=== PATIENT | female | born 1955 | race Caucasian/White ===

== ENCOUNTER 2018-08-17 19:22 | Emergency (ER) | payer OTHER, MEDICARE, BC ==
[~2018-08-17] VITALS: Ht 160 cm; Wt 84.0 kg
[~2018-08-17 19:22] MED LIST: CARB200C4 PO; CLON-527 PO; EST1T PO; HYDR-3965 PO; LAMO150T2 PO; LEVO50TA67 PO; LISI40TA4 PO; TIZA4TAB11 PO; TRAZ-91 PO
[2018-08-17 19:25] VITALS: BP 129/75
[2018-08-17 21:26] LABS: BASOPHILS # (AUTO) 0.1 X10'3 (0-0.2); BASOPHILS % (AUTO) 1.1 % (0-1); EOSINOPHILS # (AUTO) 0.4 X10'3 (0-0.9); HEMATOCRIT 29.4 % (35.0-45.0); LYMPHOCYTES # (AUTO) 1.5 X10'3 (1.1-4.8); MEAN CORPUSCULAR HEMOGLOBIN 23.3 PG (27.0-31.0); MEAN CORPUSCULAR HGB CONC 30.7 g/dL (33.0-36.5); MEAN CORPUSCULAR VOLUME 75.7 FL (78-98); MEAN PLATELET VOLUME 6.7 FL (7.4-10.4); MONOCYTES # (AUTO) 0.9 X10'3 (0-0.9); NEUTROPHILS # (AUTO) 5.1 X10'3 (1.8-7.7); NEUTROPHILS % (AUTO) 63.9 % (42-75); PLATELET COUNT 425 X10'3 (140-440); RED BLOOD COUNT 3.88 X10'6 (4.20-5.60); RED CELL DISTRIBUTION WIDTH 22.5 % (11.5-14.5)
[2018-08-17 21:37] LABS: ALANINE AMINOTRANSFERASE 19 U/L (12-78); ALBUMIN 3.1 G/DL (3.4-5.0); ALBUMIN/GLOBULIN RATIO 0.9 (1.1-1.5); ALKALINE PHOSPHATASE 208 IU/L (46-116); ANION GAP 5 (8-16); ASPARTATE AMINO TRANSFERASE 22 U/L (10-37); BILIRUBIN,TOTAL 0.2 MG/DL (0.1-1.0); BLOOD UREA NITROGEN 18 MG/DL (7-18); BUN/CREATININE RATIO 11.9 (6.6-38.0); CALCIUM 7.7 MG/DL (8.5-10.1); CHLORIDE 105 MMOL/L (99-107); CREATININE 1.51 MG/DL (0.40-0.90); GLUCOSE 91 MG/DL (70-104); POTASSIUM 5.5 MMOL/L (3.5-5.1); SODIUM 135 MMOL/L (135-145); TOTAL CARBON DIOXIDE 25.4 MMOL/L (24-32); TOTAL PROTEIN 6.4 G/DL (6.4-8.2); eGFR 35 ML/MIN
[2018-08-17] MEDS ORDERED: acetaminophen 325mg tablet PO ONE (21:50)
[2018-08-17 22:14] LABS: ANISOCYTOSIS 3+; MICROCYTOSIS 1+; PLATELET ESTIMATE NORMAL
[2018-08-17 22:15] LABS: HYPOCHROMASIA 2+; SPHEROCYTES 1+
[2018-08-17 22:16] LABS: POIKILOCYTOSIS FEW
== END 2018-08-17 22:19 | disposition home or self-care (01) ==
LOC: ER 19:22
DX: M77.31 Calcaneal spur, right foot (principal); M79.671 Pain in right foot; I10 Essential (primary) hypertension; G89.29 Other chronic pain; F31.9 Bipolar disorder, unspecified; R20.0 Anesthesia of skin
CPT/HCPCS: 36415; 73610; 80053; 84550; 85025; 85651; 99284

== ENCOUNTER 2019-10-18 11:59 | Inpatient (IN) | payer BC, MEDICARE, OTHER ==
[2019-10-18] VITALS (15 sets, daily range): BP systolic 132–217; BP diastolic 70–111
[~2019-10-18] VITALS: Ht 160 cm; Wt 105.0 kg
[~2019-10-18 11:59] MED LIST changes: -CARB200C4 PO; +CARB200C7 PO
[2019-10-18 12:33] LABS: BASOPHILS # (AUTO) 0.1 X10'3 (0-0.2); BASOPHILS % (AUTO) 1.7 % (0-1); EOSINOPHILS # (AUTO) 0.7 X10'3 (0-0.9); EOSINOPHILS % (AUTO) 10.2 % (0-6); HEMATOCRIT 38.7 % (35.0-45.0); HEMOGLOBIN 12.1 g/dl (12.0-16.0); LYMPHOCYTES # (AUTO) 1.8 X10'3 (1.1-4.8); MEAN CORPUSCULAR HEMOGLOBIN 25.9 PG (27.0-31.0); MEAN CORPUSCULAR HGB CONC 31.2 g/dL (33.0-36.5); MEAN CORPUSCULAR VOLUME 82.9 FL (78-98); MEAN PLATELET VOLUME 6.8 FL (7.4-10.4); MONOCYTES # (AUTO) 0.7 X10'3 (0-0.9); NEUTROPHILS % (AUTO) 54.1 % (42-75); PLATELET COUNT 546 X10'3 (140-440); RED BLOOD COUNT 4.67 X10'6 (4.20-5.60); RED CELL DISTRIBUTION WIDTH 17.2 % (11.5-14.5); WHITE BLOOD COUNT 7.4 X10'3 (4.5-11.0)
[2019-10-18 12:47] LABS: ALANINE AMINOTRANSFERASE 21 U/L (12-78); ALBUMIN 3.5 G/DL (3.4-5.0); ALBUMIN/GLOBULIN RATIO 0.9 (1.1-1.5); ALKALINE PHOSPHATASE 117 IU/L (46-116); ANION GAP 9 (8-16); ASPARTATE AMINO TRANSFERASE 26 U/L (10-37); BILIRUBIN,TOTAL 0.3 MG/DL (0.1-1.0); BLOOD UREA NITROGEN 13 MG/DL (7-18); BUN/CREATININE RATIO 10.8 (6.6-38.0); CALCIUM 8.7 MG/DL (8.5-10.1); CHLORIDE 102 MMOL/L (99-107); GLUCOSE 91 MG/DL (70-104); LIPASE 144 U/L (73-393); POTASSIUM 4.4 MMOL/L (3.5-5.1); SODIUM 135 MMOL/L (135-145); TOTAL CARBON DIOXIDE 24.4 MMOL/L (24-32); TOTAL PROTEIN 7.2 G/DL (6.4-8.2); eGFR 45 ML/MIN
[2019-10-18] MEDS ORDERED: morphine 4 MG/ML inj SYRINge IV PRN ×2 (13:25→15:50)
[2019-10-18] MEDS ORDERED: fentaNYL/PF 50MCG/1 ML 2ML syringe IV ONE (14:10)
[2019-10-18] MEDS ORDERED: LEVO50TA8 PO (14:11)
[2019-10-18] MEDS ORDERED: DULO60CA65 PO (14:11)
[2019-10-18] MEDS ORDERED: GABA600T13 PO (14:11)
[2019-10-18] MEDS ORDERED: ESTR0.5T28 PO (14:11)
[2019-10-18] MEDS ORDERED: LISI10TA4 PO (14:11)
[2019-10-18] MEDS ORDERED: BUPR300T86 PO (14:11)
[2019-10-18] MEDS ORDERED: CLON-369 PO (14:11)
[2019-10-18] MEDS ORDERED: CARB-52 PO (14:11)
[2019-10-18] MEDS ORDERED: TIZA4TAB5 PO (14:11)
[2019-10-18] MEDS ORDERED: HYDR-3972 PO (14:11)
[2019-10-18] MEDS ORDERED: MELO-102 PO (14:11)
[2019-10-18] MEDS ORDERED: TRAZ150T78 PO (14:11)
--- NOTE | 2019-10-18 14:34 | NUR ---
REPORT GIVEN TO OR JEAN-PIERRE RAMOS.
[2019-10-18] MEDS ORDERED: acetaminophen 325mg tablet PO PRN (15:00)
[2019-10-18] MEDS ORDERED: magnesium 2GM in 50ml NS 50 ML IV PRN (15:00)
[2019-10-18] MEDS ORDERED: ondansetron/PF 4mg/2ml inj IV PRN ×2 (15:00→15:50)
[2019-10-18] MEDS ORDERED: magnesium 4gm in 100ml NS 100 ML IV PRN (15:00)
[2019-10-18] MEDS ORDERED: potassium CL 10mEq/100ml bag 100 ML IV PRN ×2 (15:00)
[2019-10-18] MEDS ORDERED: magnesium Cl slow-release 64mg tablet PO PRN (15:00)
[2019-10-18] MEDS ORDERED: potassium Cl 20 mEq SR tablet PO PRN ×2 (15:00)
[2019-10-18] MEDS ORDERED: BUPIVAcaine/PF 2.5 mg/ml (0.25%) 30ml vial ONE (15:40)
[2019-10-18] MEDS ORDERED: ringers solution, lacted 1,000 ML IV SCH (15:46)
[2019-10-18] MEDS ORDERED: meperidine/PF 25mg/ml syringe IV PRN ×2 (15:50)
[2019-10-18] MEDS ORDERED: morphine 2 MG/ML inj. syringe IV PRN (15:50)
[2019-10-18] MEDS ORDERED: proCHLORperazine 10 MG/2 ml inj IV PRN (15:50)
[2019-10-18] MEDS ORDERED: rocuronium 10mg/ml inj IV ONE ×2 (15:52→15:53)
[2019-10-18] MEDS ORDERED: sevoflurane 250ml liquid IH ONE (15:52)
[2019-10-18] MEDS ORDERED: fentaNYL/PF 50MCG/1 ML 2ML syringe ONE (15:52)
[2019-10-18] MEDS ORDERED: propofol inj 20 ML IV ONE (15:53)
[2019-10-18] MEDS ORDERED: midazolam 2 mg/2 ml injection ONE (15:53)
[2019-10-18] MEDS ORDERED: ceFOXitin 2GM-NS 50mL ADDVANT. 50 ML IV ONE (15:53)
[2019-10-18] MEDS ORDERED: glycopyrrolate 0.2mg/ml inj ONE (17:25)
[2019-10-18] MEDS ORDERED: neostigmine methylsulfate 1 MG/ML 10ml vial ONE (17:25)
--- NOTE | 2019-10-18 17:29 | NUR ---
RECEIVED FROM OR VIA BED ACCOMPANIED BY ANESTHESIOLOGIST DR PATEL , REPORT GIVEN. PT DROWSY BUT AROUSES EASILY WITH COMPLAINT OF PAIN LEVEL OF 7 AT THIS TIME. 20 GAUGE PIV R FA PATENT AND RUNNING LR AT 100 ML/HR. SKIN PINK AND WARM, GOOD CAP REFILL, PPULSES PRESENT, ABD SOFT, VSS
[2019-10-18] MEDS: meperidine/PF 25mg/ml syringe IV PRN ×4 (17:54→18:36)
--- NOTE | 2019-10-18 18:51 | NUR ---
TRANSFERRED VIA BED , REPORT GIVEN. PT AWAKE AND ALERT WITH COMPLAINT OF PAIN LEVEL OF 5 AT THIS TIME. 20 GAUGE PIV R FA PATENT AND RUNNING LR AT 100 ML/HR. SKIN PINK AND WARM, GOOD CAP REFILL, PPULSES PRESENT, ABD SOFT, VSS, RESTING COMFORTABLY
[2019-10-18] MEDS ORDERED: clonazePAM 0.5mg tablet PO PRN (19:45)
[2019-10-18] MEDS ORDERED: tizanidine 4mg tablet PO PRN (19:45)
--- NOTE | 2019-10-18 19:55 | NUR ---
Patient in room RAD[facility] 345. I have received report from Payton RAMOS and had the opportunity to ask questions and assume patient care.
[2019-10-18] MEDS: K and/or MAG REPLACEMENT MC SCH (20:00)
[2019-10-18] MEDS: morphine 2 MG/ML inj. syringe IV PRN (20:14)
[2019-10-18] MEDS: normal saline 1000ml 1,000 ML IV SCH (20:23)
[2019-10-18] MEDS ORDERED: buPROPion SR 150mg tablet PO SCH (20:30)
[2019-10-18] MEDS: gabapentin 400mg capsule PO SCH (22:00)
[2019-10-18] MEDS: carBAMazepine Ext. Release 200 MG TAB.ER.12H PO SCH (22:00)
[2019-10-18] MEDS: HYDROcodone/acetaminophen 10/325mg tab PO PRN (23:42)
[2019-10-19] VITALS (11 sets, daily range): BP systolic 162–211; BP diastolic 75–98
[2019-10-19] MEDS: normal saline 1000ml 1,000 ML IV SCH ×3 (00:58→18:36)
[2019-10-19] MEDS: traZODone 150mg tablet PO PRN ×2 (01:14→21:58)
[2019-10-19] MEDS ORDERED: hydrALAZINE 20mg/ml inj. IV PRN (01:25)
[2019-10-19] MEDS: morphine 2 MG/ML inj. syringe IV PRN ×3 (02:17→20:06)
--- NOTE | 2019-10-19 02:41 | NUR ---
pt sbp was running 200. pt was given pain medication because pt was painful. sbp was still 200. MD was called and gave a order for PRN medication for SBP of >160. pt SBP went down to 151 before PRN was given
[2019-10-19] MEDS: lisinopril 10 MG tablet PO SCH (06:11)
[2019-10-19 06:18] LABS: BASOPHILS # (AUTO) 0.1 X10'3 (0-0.2); BASOPHILS % (AUTO) 1.3 % (0-1); EOSINOPHILS # (AUTO) 0.6 X10'3 (0-0.9); EOSINOPHILS % (AUTO) 6.9 % (0-6); HEMATOCRIT 35.4 % (35.0-45.0); HEMOGLOBIN 11.4 g/dl (12.0-16.0); LYMPHOCYTES # (AUTO) 1.7 X10'3 (1.1-4.8); LYMPHOCYTES % (AUTO) 20.7 % (21-51); MEAN CORPUSCULAR HEMOGLOBIN 26.8 PG (27.0-31.0); MEAN CORPUSCULAR HGB CONC 32.2 g/dL (33.0-36.5); MEAN CORPUSCULAR VOLUME 83.2 FL (78-98); MEAN PLATELET VOLUME 7.3 FL (7.4-10.4); MONOCYTES # (AUTO) 0.8 X10'3 (0-0.9); MONOCYTES % (AUTO) 9.4 % (2-12); NEUTROPHILS # (AUTO) 5.1 X10'3 (1.8-7.7); NEUTROPHILS % (AUTO) 61.7 % (42-75); PLATELET COUNT 453 X10'3 (140-440); RED BLOOD COUNT 4.25 X10'6 (4.20-5.60); RED CELL DISTRIBUTION WIDTH 17.2 % (11.5-14.5); WHITE BLOOD COUNT 8.2 X10'3 (4.5-11.0)
[2019-10-19 06:34] LABS: ALBUMIN 3.3 G/DL (3.4-5.0); ANION GAP 9 (8-16); BLOOD UREA NITROGEN 10 MG/DL (7-18); BUN/CREATININE RATIO 10.5 (6.6-38.0); CALCIUM 8.5 MG/DL (8.5-10.1); CHLORIDE 104 MMOL/L (99-107); CREATININE 0.95 MG/DL (0.40-0.90); GLUCOSE 88 MG/DL (70-104); MAGNESIUM 1.6 MG/DL (1.5-2.4); POTASSIUM 4.4 MMOL/L (3.5-5.1); SODIUM 137 MMOL/L (135-145); TOTAL CARBON DIOXIDE 23.6 MMOL/L (24-32); eGFR 59 ML/MIN
--- NOTE | 2019-10-19 06:47 | NUR ---
Patient in room RADHA 349. I have received report from RICHARD Lenz and had the opportunity to ask questions and assume patient care.
--- NOTE | 2019-10-19 06:50 | NUR ---
Problems reprioritized. Patient report given, questions answered & plan of care reviewed with Faith RAMOS.
[2019-10-19] MEDS: gabapentin 400mg capsule PO SCH (07:49)
[2019-10-19] MEDS: carBAMazepine Ext. Release 200 MG TAB.ER.12H PO SCH ×3 (07:50→20:04)
[2019-10-19] MEDS: duloxetine 30mg CAPSULE.DR PO SCH (07:50)
[2019-10-19] MEDS: levoTHYROXINE 25mcg tablet PO SCH (07:50)
[2019-10-19] MEDS: HYDROcodone/acetaminophen 10/325mg tab PO PRN (07:51)
[2019-10-19] MEDS: buPROPion SR 150mg tablet PO SCH ×2 (07:51→20:03)
[2019-10-19] MEDS: K and/or MAG REPLACEMENT MC SCH ×2 (08:00→19:44)
[2019-10-19] MEDS ORDERED: lisinopril 10 MG tablet PO SCH ×2 (08:00)
[2019-10-19] MEDS ORDERED: pneumococcal 23-VAL P-sac vacc 25 mcg/0.5ml vial IMVAC ONE (10:00)
[2019-10-19] MEDS ORDERED: sincalide inj 2.1 MCG in normal saline 50ml IV soln 50 ML IV ONE (11:00)
[2019-10-19] MEDS ORDERED: SINCALIDE IV PRN (15:30)
[2019-10-19] MEDS ORDERED: NORMAL SALINE IV PRN (15:30)
[2019-10-19] MEDS ORDERED: morphine 4 MG/ML inj SYRINge IM ONE (15:35)
[2019-10-19] MEDS ORDERED: morphine 4 MG/ML inj SYRINge ONE (15:36)
--- NOTE | 2019-10-19 17:59 | NUR ---
Problems reprioritized. Patient report given, questions answered & plan of care reviewed with RICHARD Lenz.
--- NOTE | 2019-10-19 18:38 | NUR ---
Patient in room RAD[facility] 345. I have received report from Faith RAMOS and had the opportunity to ask questions and assume patient care.
[2019-10-19] MEDS: gabapentin 300mg capsule PO SCH (20:02)
[2019-10-20] VITALS: BP 180/90
[2019-10-20] MEDS: morphine 2 MG/ML inj. syringe IV PRN ×6 (00:07→20:51)
[2019-10-20 01:00] VITALS: BP 152/83
[2019-10-20] MEDS: normal saline 1000ml 1,000 ML IV SCH ×2 (02:57→17:26)
[2019-10-20 06:01] LABS: ANION GAP 8 (8-16); BLOOD UREA NITROGEN 5 MG/DL (7-18); BUN/CREATININE RATIO 6.2 (6.6-38.0); CALCIUM 8.2 MG/DL (8.5-10.1); CHLORIDE 104 MMOL/L (99-107); CREATININE 0.81 MG/DL (0.40-0.90); GLUCOSE 93 MG/DL (70-104); MAGNESIUM 1.4 MG/DL (1.5-2.4); POTASSIUM 3.8 MMOL/L (3.5-5.1); SODIUM 136 MMOL/L (135-145); TOTAL CARBON DIOXIDE 24.2 MMOL/L (24-32); eGFR 71 ML/MIN
[2019-10-20 06:07] LABS: BASOPHILS # (AUTO) 0.1 X10'3 (0-0.2); BASOPHILS % (AUTO) 0.9 % (0-1); EOSINOPHILS # (AUTO) 0.6 X10'3 (0-0.9); EOSINOPHILS % (AUTO) 8.5 % (0-6); HEMATOCRIT 31.9 % (35.0-45.0); HEMOGLOBIN 10.3 g/dl (12.0-16.0); LYMPHOCYTES # (AUTO) 1.7 X10'3 (1.1-4.8); LYMPHOCYTES % (AUTO) 22.4 % (21-51); MEAN CORPUSCULAR HEMOGLOBIN 26.7 PG (27.0-31.0); MEAN CORPUSCULAR HGB CONC 32.2 g/dL (33.0-36.5); MEAN CORPUSCULAR VOLUME 82.8 FL (78-98); MEAN PLATELET VOLUME 7.2 FL (7.4-10.4); MONOCYTES # (AUTO) 1.2 X10'3 (0-0.9); MONOCYTES % (AUTO) 15.3 % (2-12); NEUTROPHILS % (AUTO) 52.9 % (42-75); PLATELET COUNT 437 X10'3 (140-440); RED BLOOD COUNT 3.85 X10'6 (4.20-5.60); RED CELL DISTRIBUTION WIDTH 17.5 % (11.5-14.5); WHITE BLOOD COUNT 7.6 X10'3 (4.5-11.0)
--- NOTE | 2019-10-20 06:24 | NUR ---
Problems reprioritized. Patient report given, questions answered & plan of care reviewed with Faith RAMOS.
--- NOTE | 2019-10-20 06:31 | NUR ---
Patient in room RADHA 349. I have received report from RICHARD Lenz and had the opportunity to ask questions and assume patient care.
[2019-10-20 07:50] VITALS: BP 175/91
[2019-10-20] MEDS: levoTHYROXINE 25mcg tablet PO SCH (08:10)
[2019-10-20] MEDS: gabapentin 300mg capsule PO SCH ×2 (08:10→20:49)
[2019-10-20] MEDS: duloxetine 30mg CAPSULE.DR PO SCH (08:11)
[2019-10-20] MEDS: carBAMazepine Ext. Release 200 MG TAB.ER.12H PO SCH ×3 (08:12→20:50)
[2019-10-20] MEDS: lisinopril 10 MG tablet PO SCH (08:12)
[2019-10-20] MEDS: buPROPion SR 150mg tablet PO SCH ×2 (08:13→20:49)
[2019-10-20] MEDS: K and/or MAG REPLACEMENT MC SCH ×2 (08:35→20:00)
[2019-10-20 11:00] VITALS: BP 150/97
[2019-10-20 18:00] VITALS: BP_SYST 142; BP_SYST 155; BP_DIAS 70; BP_DIAS 90
--- NOTE | 2019-10-20 18:35 | NUR ---
Problems reprioritized. Patient report given, questions answered & plan of care reviewed with RICHARD Lenz.
--- NOTE | 2019-10-20 19:38 | NUR ---
Patient in room RAD[facility] 345. I have received report from Faith RAMOS and had the opportunity to ask questions and assume patient care.
[2019-10-20] MEDS: traZODone 150mg tablet PO PRN (22:35)
[2019-10-21] VITALS (14 sets, daily range): BP systolic 115–204; BP diastolic 51–122
[2019-10-21] MEDS: morphine 2 MG/ML inj. syringe IV PRN ×3 (01:48→19:29)
[2019-10-21] MEDS: normal saline 1000ml 1,000 ML IV SCH ×2 (03:57→15:30)
[2019-10-21 05:19] LABS: BASOPHILS # (AUTO) 0.1 X10'3 (0-0.2); BASOPHILS % (AUTO) 1.1 % (0-1); EOSINOPHILS # (AUTO) 0.7 X10'3 (0-0.9); EOSINOPHILS % (AUTO) 9.4 % (0-6); HEMATOCRIT 33.3 % (35.0-45.0); HEMOGLOBIN 10.5 g/dl (12.0-16.0); LYMPHOCYTES # (AUTO) 1.7 X10'3 (1.1-4.8); LYMPHOCYTES % (AUTO) 23.1 % (21-51); MEAN CORPUSCULAR HEMOGLOBIN 26.1 PG (27.0-31.0); MEAN CORPUSCULAR HGB CONC 31.7 g/dL (33.0-36.5); MEAN CORPUSCULAR VOLUME 82.5 FL (78-98); MEAN PLATELET VOLUME 7.2 FL (7.4-10.4); MONOCYTES # (AUTO) 1.1 X10'3 (0-0.9); MONOCYTES % (AUTO) 15.3 % (2-12); NEUTROPHILS # (AUTO) 3.7 X10'3 (1.8-7.7); NEUTROPHILS % (AUTO) 51.1 % (42-75); PLATELET COUNT 419 X10'3 (140-440); RED BLOOD COUNT 4.03 X10'6 (4.20-5.60); RED CELL DISTRIBUTION WIDTH 17.7 % (11.5-14.5); WHITE BLOOD COUNT 7.3 X10'3 (4.5-11.0)
[2019-10-21 05:25] LABS: ANION GAP 8 (8-16); BLOOD UREA NITROGEN 3 MG/DL (7-18); BUN/CREATININE RATIO 3.9 (6.6-38.0); CALCIUM 8.3 MG/DL (8.5-10.1); CHLORIDE 103 MMOL/L (99-107); CREATININE 0.77 MG/DL (0.40-0.90); GLUCOSE 97 MG/DL (70-104); MAGNESIUM 1.9 MG/DL (1.5-2.4); POTASSIUM 3.7 MMOL/L (3.5-5.1); SODIUM 136 MMOL/L (135-145); TOTAL CARBON DIOXIDE 25.3 MMOL/L (24-32); eGFR 76 ML/MIN
--- NOTE | 2019-10-21 06:39 | NUR ---
Problems reprioritized. Patient report given, questions answered & plan of care reviewed with Dorothy RAMOS.
--- NOTE | 2019-10-21 06:44 | NUR ---
Patient in room RADHA 349. I have received report from Yoanna Carlos RN and had the opportunity to ask questions and assume patient care.
[2019-10-21] MEDS: levoTHYROXINE 25mcg tablet PO SCH (07:36)
[2019-10-21] MEDS: carBAMazepine Ext. Release 200 MG TAB.ER.12H PO SCH ×3 (07:37→20:49)
[2019-10-21] MEDS: duloxetine 30mg CAPSULE.DR PO SCH (07:38)
[2019-10-21] MEDS: buPROPion SR 150mg tablet PO SCH ×2 (07:39→19:28)
[2019-10-21] MEDS: lisinopril 10 MG tablet PO SCH (07:39)
[2019-10-21] MEDS: gabapentin 300mg capsule PO SCH ×2 (07:39→19:28)
[2019-10-21] MEDS: HYDROcodone/acetaminophen 10/325mg tab PO PRN (07:41)
[2019-10-21] MEDS: K and/or MAG REPLACEMENT MC SCH ×2 (08:00→20:00)
--- NOTE | 2019-10-21 10:00 | NUR ---
Dr Crandall aware of pt's elevated BPs 180's/90's. Orders received. Will continue to monitor.
[2019-10-21] MEDS ORDERED: methylnaltrexone br 12mg/0.6ml inj***SubQ only SQ SCH (10:45)
[2019-10-21] MEDS ORDERED: LIDOcaine Viscous 15ml cup ONE (11:50)
[2019-10-21] MEDS ORDERED: MIDAZolam 5mg/5ml vial ONE (11:50)
[2019-10-21] MEDS ORDERED: fentaNYL/PF 50MCG/1 ML 2ML syringe ONE (11:50)
[2019-10-21] MEDS: bisacodyl 10mg suppository rectal RC SCH (15:01)
[2019-10-21] MEDS: oxyCODONE/APAP 10/325mg tablet PO PRN ×2 (15:40→22:52)
--- NOTE | 2019-10-21 18:24 | NUR ---
Problems reprioritized. Patient report given, questions answered & plan of care reviewed with Mary RAMOS.
--- NOTE | 2019-10-21 18:30 | NUR ---
Patient in room RADHA 349. I have received report from FARZANA and had the opportunity to ask questions and assume patient care.
[2019-10-21] MEDS: diatr meglu/diatrizoate 30ml oral sol.-(3 dose) bottle PO SCH (20:53)
[2019-10-21] MEDS: traZODone 150mg tablet PO PRN (22:53)
[2019-10-22] MEDS: normal saline 1000ml 1,000 ML IV SCH ×4 (01:14→21:08)
[2019-10-22] MEDS: oxyCODONE/APAP 10/325mg tablet PO PRN ×4 (03:34→22:08)
[2019-10-22 05:21] LABS: BASOPHILS # (AUTO) 0.1 X10'3 (0-0.2); BASOPHILS % (AUTO) 1.3 % (0-1); EOSINOPHILS # (AUTO) 0.7 X10'3 (0-0.9); EOSINOPHILS % (AUTO) 11.7 % (0-6); HEMATOCRIT 32.4 % (35.0-45.0); HEMOGLOBIN 10.3 g/dl (12.0-16.0); LYMPHOCYTES # (AUTO) 1.6 X10'3 (1.1-4.8); LYMPHOCYTES % (AUTO) 25.1 % (21-51); MEAN CORPUSCULAR HEMOGLOBIN 26.4 PG (27.0-31.0); MEAN CORPUSCULAR VOLUME 82.7 FL (78-98); MEAN PLATELET VOLUME 7.2 FL (7.4-10.4); MONOCYTES % (AUTO) 16.6 % (2-12); NEUTROPHILS # (AUTO) 2.8 X10'3 (1.8-7.7); NEUTROPHILS % (AUTO) 45.3 % (42-75); PLATELET COUNT 403 X10'3 (140-440); RED BLOOD COUNT 3.91 X10'6 (4.20-5.60); RED CELL DISTRIBUTION WIDTH 17.4 % (11.5-14.5); WHITE BLOOD COUNT 6.2 X10'3 (4.5-11.0)
[2019-10-22 05:22] LABS: ALBUMIN 2.7 G/DL (3.4-5.0); ANION GAP 9 (8-16); BLOOD UREA NITROGEN 4 MG/DL (7-18); BUN/CREATININE RATIO 5.4 (6.6-38.0); CALCIUM 7.9 MG/DL (8.5-10.1); CHLORIDE 102 MMOL/L (99-107); CREATININE 0.74 MG/DL (0.40-0.90); GLUCOSE 86 MG/DL (70-104); MAGNESIUM 1.3 MG/DL (1.5-2.4); POTASSIUM 3.7 MMOL/L (3.5-5.1); SODIUM 135 MMOL/L (135-145); TOTAL CARBON DIOXIDE 24.4 MMOL/L (24-32); eGFR 79 ML/MIN
[2019-10-22] MEDS: morphine 2 MG/ML inj. syringe IV PRN ×3 (05:53→19:58)
--- NOTE | 2019-10-22 06:48 | NUR ---
Problems reprioritized. Patient report given, questions answered & plan of care reviewed with
--- NOTE | 2019-10-22 06:51 | NUR ---
Patient in room RADHA 349. I have received report from Mary RAMOS and had the opportunity to ask questions and assume patient care.
[2019-10-22] MEDS: diatr meglu/diatrizoate 30ml oral sol.-(3 dose) bottle PO SCH ×2 (07:36→10:52)
[2019-10-22] MEDS: duloxetine 30mg CAPSULE.DR PO SCH (07:37)
[2019-10-22] MEDS: levoTHYROXINE 25mcg tablet PO SCH (07:38)
[2019-10-22] MEDS: carBAMazepine Ext. Release 200 MG TAB.ER.12H PO SCH ×3 (07:38→19:57)
[2019-10-22] MEDS: lisinopril 10 MG tablet PO SCH (07:38)
[2019-10-22] MEDS: gabapentin 300mg capsule PO SCH ×2 (07:38→19:57)
[2019-10-22] MEDS: buPROPion SR 150mg tablet PO SCH ×2 (07:39→19:57)
[2019-10-22] MEDS: bisacodyl 10mg suppository rectal RC SCH ×2 (07:39→12:12)
--- NOTE | 2019-10-22 07:46 | NUR ---
will give Dulcolax suppository after CT procedure.
[2019-10-22] MEDS: K and/or MAG REPLACEMENT MC SCH ×2 (07:52→20:10)
--- NOTE | 2019-10-22 07:59 | NUR ---
PAGER ID: [phone] MESSAGE: re: Mayelin Baker 349A. Order K/Mag replacement protocol? Pt's Mg is 1.3 this aessie Thank you [facility] [phone]
[2019-10-22 08:00] VITALS: BP 141/84
[2019-10-22 08:16] LABS: TOTAL CELLS COUNTED 100
[2019-10-22 08:17] LABS: ANISOCYTOSIS 1+; HYPOCHROMASIA 1+; PLATELET ESTIMATE NORMAL; POLYCHROMASIA FEW
[2019-10-22] MEDS ORDERED: iohexol 300mg/ml 100ml inj. ONE (09:56)
[2019-10-22 11:00] VITALS: BP 176/92
[2019-10-22 11:30] VITALS: BP 156/85
--- NOTE | 2019-10-22 11:59 | NUR ---
Patient given Percocet at 0920, scanned but did not save on eMAR. Correction made on eMAR.
[2019-10-22] MEDS ORDERED: magnesium 4gm in 100ml NS 100 ML IV PRN (12:25)
[2019-10-22] MEDS ORDERED: potassium Cl 20 mEq SR tablet PO PRN ×2 (12:25)
[2019-10-22] MEDS ORDERED: potassium CL 10mEq/100ml bag 100 ML IV PRN (12:25)
[2019-10-22] MEDS ORDERED: magnesium 2GM in 50ml NS 50 ML IV PRN (12:25)
[2019-10-22] MEDS: metoclopramide 5 mg/ml inj IV SCH ×2 (14:07→19:57)
[2019-10-22] MEDS: magnesium Cl slow-release 64mg tablet PO PRN ×2 (14:12→19:56)
--- NOTE | 2019-10-22 14:27 | NUR ---
PAGER ID: [phone] MESSAGE: Re: Mayelin Baker Rm 349A, CT from this a.m. resulted. Can we feed the pt? Was on clears, possibly advance to fulls? Thank you, Dorothy fox [phone]
[2019-10-22 18:00] VITALS: BP 113/65
--- NOTE | 2019-10-22 18:00 | NUR ---
Patient in room RAD[facility] 349. I have received report from Dorothy RAMOS and had the opportunity to ask questions and assume patient care.
--- NOTE | 2019-10-22 18:45 | NUR ---
Problems reprioritized. Patient report given, questions answered & plan of care reviewed with Delvis RN.
[2019-10-22] MEDS: traZODone 150mg tablet PO PRN (22:07)
[2019-10-23] VITALS: BP 102/60
[2019-10-23] MEDS: metoclopramide 5 mg/ml inj IV SCH ×4 (02:02→19:36)
[2019-10-23] MEDS: morphine 2 MG/ML inj. syringe IV PRN ×2 (02:07→07:40)
[2019-10-23] MEDS: oxyCODONE/APAP 10/325mg tablet PO PRN ×4 (04:48→20:00)
[2019-10-23 06:18] LABS: BASOPHILS # (AUTO) 0.1 X10'3 (0-0.2); BASOPHILS % (AUTO) 0.9 % (0-1); EOSINOPHILS # (AUTO) 0.8 X10'3 (0-0.9); EOSINOPHILS % (AUTO) 11.3 % (0-6); HEMATOCRIT 31.6 % (35.0-45.0); HEMOGLOBIN 10.2 g/dl (12.0-16.0); LYMPHOCYTES # (AUTO) 1.5 X10'3 (1.1-4.8); LYMPHOCYTES % (AUTO) 22.6 % (21-51); MEAN CORPUSCULAR HEMOGLOBIN 26.9 PG (27.0-31.0); MEAN CORPUSCULAR HGB CONC 32.4 g/dL (33.0-36.5); MEAN CORPUSCULAR VOLUME 83.2 FL (78-98); MEAN PLATELET VOLUME 7.2 FL (7.4-10.4); MONOCYTES % (AUTO) 14.2 % (2-12); NEUTROPHILS # (AUTO) 3.4 X10'3 (1.8-7.7); PLATELET COUNT 398 X10'3 (140-440); RED CELL DISTRIBUTION WIDTH 17.3 % (11.5-14.5); WHITE BLOOD COUNT 6.7 X10'3 (4.5-11.0)
--- NOTE | 2019-10-23 06:21 | NUR ---
Problems reprioritized. Patient report given, questions answered & plan of care reviewed with Ashly welch. Patient is resting comfortably at time of report.
[2019-10-23 06:25] LABS: ALBUMIN 2.9 G/DL (3.4-5.0); ANION GAP 10 (8-16); BLOOD UREA NITROGEN 3 MG/DL (7-18); BUN/CREATININE RATIO 3.8 (6.6-38.0); CALCIUM 8.1 MG/DL (8.5-10.1); CHLORIDE 106 MMOL/L (99-107); CREATININE 0.78 MG/DL (0.40-0.90); GLUCOSE 84 MG/DL (70-104); MAGNESIUM 1.5 MG/DL (1.5-2.4); POTASSIUM 3.6 MMOL/L (3.5-5.1); SODIUM 138 MMOL/L (135-145); TOTAL CARBON DIOXIDE 21.9 MMOL/L (24-32); eGFR 75 ML/MIN
--- NOTE | 2019-10-23 06:33 | NUR ---
Patient in room RADHA 349. I have received report from Delvis RAMOS and had the opportunity to ask questions and assume patient care.
[2019-10-23 07:00] VITALS: BP 166/85
[2019-10-23] MEDS: K and/or MAG REPLACEMENT MC SCH ×2 (07:17→18:44)
[2019-10-23] MEDS: buPROPion SR 150mg tablet PO SCH ×2 (07:41→19:36)
[2019-10-23] MEDS: levoTHYROXINE 25mcg tablet PO SCH (07:41)
[2019-10-23] MEDS: gabapentin 300mg capsule PO SCH ×2 (07:41→19:36)
[2019-10-23] MEDS: duloxetine 30mg CAPSULE.DR PO SCH (07:41)
[2019-10-23] MEDS: carBAMazepine Ext. Release 200 MG TAB.ER.12H PO SCH ×3 (07:42→22:18)
[2019-10-23] MEDS: bisacodyl 10mg suppository rectal RC SCH (07:43)
[2019-10-23] MEDS: lisinopril 10 MG tablet PO SCH (07:45)
[2019-10-23] MEDS: normal saline 1000ml 1,000 ML IV SCH ×2 (07:55→17:09)
[2019-10-23] MEDS ORDERED: methylnaltrexone br 12mg/0.6ml inj***SubQ only SQ SCH (08:00)
--- NOTE | 2019-10-23 10:11 | NUR ---
Initial: Pt presented with c/o abdominal pain. Pt to OR, visualized to have no gallbladder however was found to have significant adhesions which were lysed per MD notes. Pt still c/o abdominal pain. Patient's diet has been advanced from full liquids to regular, pending first meal. PO intake up to 100% at most recent full liquid meal prior to diet advancement. LBM 8/2, receiving routine bowel care, prokinetic agent, and opioid antagonist. Will continue to follow and monitor need for nutrition intervention pending trends in PO intake with diet advancement. Recommendations: 1) Continue regular diet 2) Monitor need for ONS/additional protein 3) Routine bowel care 4) Scaled weights per rx Addendum: 10/23/19 at [address] Amended: Links added.
[2019-10-23 11:49] VITALS: BP 168/94
--- NOTE | 2019-10-23 18:09 | NUR ---
Patient in room RADHA 349. I have received report from Ashly RAMOS and had the opportunity to ask questions and assume patient care.
--- NOTE | 2019-10-23 18:09 | NUR ---
Problems reprioritized. Patient report given, questions answered & plan of care reviewed with Delvis RN.
[2019-10-23 19:00] VITALS: BP 171/85
[2019-10-23 20:27] VITALS: BP 159/71
[2019-10-23] MEDS: traZODone 150mg tablet PO PRN (22:18)
[2019-10-24] VITALS: BP 133/70
[2019-10-24] MEDS: oxyCODONE/APAP 10/325mg tablet PO PRN ×3 (01:10→09:30)
[2019-10-24] MEDS: metoclopramide 5 mg/ml inj IV SCH ×2 (01:10→07:31)
[2019-10-24] MEDS: normal saline 1000ml 1,000 ML IV SCH (02:21)
--- NOTE | 2019-10-24 06:00 | NUR ---
Patient in room RAD[facility] 349. I have received report from RICHARD Edmondson and had the opportunity to ask questions and assume patient care.
--- NOTE | 2019-10-24 06:14 | NUR ---
Problems reprioritized. Patient report given, questions answered & plan of care reviewed with Elva RAMOS.
[2019-10-24] MEDS: K and/or MAG REPLACEMENT MC SCH (06:34)
[2019-10-24] MEDS: levoTHYROXINE 25mcg tablet PO SCH (07:32)
[2019-10-24] MEDS: buPROPion SR 150mg tablet PO SCH (07:32)
[2019-10-24] MEDS: duloxetine 30mg CAPSULE.DR PO SCH (07:32)
[2019-10-24] MEDS: carBAMazepine Ext. Release 200 MG TAB.ER.12H PO SCH (07:32)
[2019-10-24] MEDS: lisinopril 10 MG tablet PO SCH (07:33)
[2019-10-24] MEDS: gabapentin 300mg capsule PO SCH (07:33)
[2019-10-24] MEDS: bisacodyl 10mg suppository rectal RC SCH (07:46)
[2019-10-24 08:00] VITALS: BP 170/79
--- NOTE | 2019-10-24 08:11 | NUR ---
Dr Gómez stated pt may discharge home.
[2019-10-24] MEDS ORDERED: OXYC1TAB17 PO (09:28)
[2019-10-24 10:30] VITALS: BP 140/82
--- NOTE | 2019-10-24 11:00 | NUR ---
Patient discharged home into the care of the . Patient alert, oriented, and appropriate for discharge. Patient left with all belongings. Patient IV removed, patient not on tele. Patient will follow up with MD Plasencia within one week. Patient verbalized understanding of discharge instructions. Patient received paper copy of the percocet prescription, a copy of which is in the chart.
== END 2019-10-24 10:55 | disposition home or self-care (01) | DRG 336 ==
LOC: ER 11:59 → SUR 3N 14:58 → UNDOADMIN 15:12 → SUR 3N 15:12
PROVIDERS: ADMIT Internal Medicine; ATTEND Internal Medicine
PROC: 0DNL0ZZ Release Transverse Colon, Open Approach (ICD-10-PCS; 2019-10-18)
PROC: 0DNW4ZZ Release Peritoneum, Percutaneous Endoscopic Approach (ICD-10-PCS; principal; 2019-10-18 15:52)
PROC: 3E0234Z Introduction of Serum, Toxoid and Vaccine into Muscle, Percutaneous Approach (ICD-10-PCS; 2019-10-19)
PROC: 0DJ08ZZ Inspection of Upper Intestinal Tract, Via Natural or Artificial Opening Endoscopic (ICD-10-PCS; 2019-10-21)
PROC: BW211ZZ Computerized Tomography (CT Scan) of Abdomen and Pelvis using Low Osmolar Contrast (ICD-10-PCS; 2019-10-22)
DX: K66.0 Peritoneal adhesions (postprocedural) (postinfection) (principal); K80.10 Calculus of gallbladder with chronic cholecystitis without obstruction; N17.9 Acute kidney failure, unspecified; F32.9 Major depressive disorder, single episode, unspecified; M17.11 Unilateral primary osteoarthritis, right knee; E03.9 Hypothyroidism, unspecified; F41.9 Anxiety disorder, unspecified; I10 Essential (primary) hypertension; M19.90 Unspecified osteoarthritis, unspecified site; G47.00 Insomnia, unspecified; D64.9 Anemia, unspecified; E86.0 Dehydration; Z96.651 Presence of right artificial knee joint; Z79.899 Other long term (current) drug therapy; Z90.49 Acquired absence of other specified parts of digestive tract; Z98.84 Bariatric surgery status; Z23 Encounter for immunization
CPT/HCPCS: 36415; 43235; 74177; 76700; 78227; 80048; 80053; 83690; 83735; 85025; 87081; 90732; 93005; 96374; 96375; 99152; 99285; A4215; A4618; A4620; A7000; A9537; G0378; J0360; J0694; J2175; J2212; J2250; J2270; J2405; J2704; J2710; J2765; J3010; J3475; J3490; J7030; J7040; J7120; Q9963; Q9967

== ENCOUNTER 2020-06-03 12:05 | Emergency (ER) | payer BC, OTHER ==
[~2020-06-03] VITALS: Ht 160 cm; Wt 95.5 kg
[~2020-06-03 12:05] MED LIST changes: +BUPR300T86 PO; +CARB-52 PO; -CARB200C7 PO; +CLON-369 PO; -CLON-527 PO; +DULO60CA65 PO; -EST1T PO; +ESTR0.5T28 PO; +GABA600T13 PO; -HYDR-3965 PO; +HYDR-3972 PO; -LAMO150T2 PO; -LEVO50TA67 PO; +LEVO50TA8 PO; +LISI10TA27 PO; -LISI40TA4 PO; +MELO-102 PO; +OXYC1TAB17 PO; -TIZA4TAB11 PO; +TIZA4TAB5 PO; -TRAZ-91 PO; +TRAZ150T78 PO
[2020-06-03] MEDS ORDERED: morphine 4 MG/ML inj SYRINge IV ONE ×2 (13:55→16:50)
[2020-06-03] MEDS ORDERED: HYDR50CA5 PO (14:04)
[2020-06-03] MEDS ORDERED: HYDR60TA PO (14:04)
[2020-06-03] MEDS ORDERED: OXYC-145 PO (16:26)
[2020-06-03 18:03] VITALS: BP 139/89
== END 2020-06-03 17:30 | disposition home or self-care (01) ==
LOC: ER 12:05
DX: S82.831A Other fracture of upper and lower end of right fibula, initial encounter for closed fracture (principal); I10 Essential (primary) hypertension; G89.29 Other chronic pain; Z87.81 Personal history of (healed) traumatic fracture; Z79.899 Other long term (current) drug therapy; W18.30XA Fall on same level, unspecified, initial encounter; Y93.89 Activity, other specified; Y92.89 Other specified places as the place of occurrence of the external cause; Y99.8 Other external cause status
CPT/HCPCS: 73502; 73560; 73590; 73610; 74018; 96374; 96376; 99284; J2270

== ENCOUNTER 2020-09-30 11:52 | Emergency (ER) | payer BC ==
[~2020-09-30] VITALS: Ht 162.6 cm; Wt 110.0 kg
[~2020-09-30 11:52] MED LIST changes: +HYDR50CA5 PO; +HYDR60TA PO; +OXYC-145 PO; -OXYC1TAB17 PO
[2020-09-30] MEDS ORDERED: LORazepam 2 mg/ml vial IV ONE (12:55)
[2020-09-30] MEDS: morphine 2 MG/ML inj. syringe IV PRN ×2 (13:18→13:55)
[2020-09-30] MEDS ORDERED: OXYC-150 PO (14:57)
[2020-09-30] MEDS ORDERED: oxyCODONE/APAP 10/325mg tablet PO ONE (15:00)
[2020-09-30 15:11] VITALS: BP 157/70
== END 2020-09-30 15:27 | disposition home or self-care (01) ==
LOC: ER 11:52
DX: S42.291A Other displaced fracture of upper end of right humerus, initial encounter for closed fracture (principal); M25.511 Pain in right shoulder; M25.521 Pain in right elbow; M54.5 Low back pain; I10 Essential (primary) hypertension; G89.29 Other chronic pain; F31.9 Bipolar disorder, unspecified; Z98.890 Other specified postprocedural states; Z79.899 Other long term (current) drug therapy; W18.30XA Fall on same level, unspecified, initial encounter; Y93.89 Activity, other specified; Y92.89 Other specified places as the place of occurrence of the external cause; Y99.8 Other external cause status
CPT/HCPCS: 73030; 73080; 73200; 96374; 96375; 96376; 99284; J2060; J2270; 29105

== ENCOUNTER 2021-07-14 01:14 | Inpatient (IN) | payer BC ==
[~2021-07-14] VITALS: Ht 162.6 cm; Wt 100.0 kg
[~2021-07-14 01:14] MED LIST changes: +APIX5TAB3 PO; +BUSP10TA3 PO; -CARB-52 PO; +CARB200C7 PO; -CLON-369 PO; +CLON0.5T5 PO; +FERR325T29 PO; -HYDR-3972 PO; +HYDR-3973 PO; -HYDR50CA5 PO; -HYDR60TA PO; -LISI10TA27 PO; -MELO-102 PO; -OXYC-145 PO; +SOTA80TA73 PO; -TIZA4TAB5 PO
[2021-07-14 03:43] LABS: HEMOGLOBIN 12.9 g/dl (12.0-16.0)
[2021-07-14 03:45] LABS: BASOPHILS # (AUTO) 0.1 X10'3 (0-0.2); BASOPHILS % (AUTO) 0.6 % (0-1); EOSINOPHILS # (AUTO) 0.2 X10'3 (0-0.9); EOSINOPHILS % (AUTO) 2.8 % (0-6); HEMATOCRIT 39.4 % (35.0-45.0); LYMPHOCYTES # (AUTO) 1.4 X10'3 (1.1-4.8); LYMPHOCYTES % (AUTO) 15.8 % (21-51); MEAN CORPUSCULAR HEMOGLOBIN 31.1 PG (27.0-31.0); MEAN CORPUSCULAR HGB CONC 32.7 g/dL (33.0-36.5); MEAN CORPUSCULAR VOLUME 95.3 FL (78-98); MEAN PLATELET VOLUME 8.6 FL (7.4-10.4); MONOCYTES # (AUTO) 0.9 X10'3 (0-0.9); MONOCYTES % (AUTO) 10.9 % (2-12); NEUTROPHILS % (AUTO) 69.9 % (42-75); PLATELET COUNT 316 X10'3 (140-440); RED BLOOD COUNT 4.13 X10'6 (4.20-5.60); RED CELL DISTRIBUTION WIDTH 15.1 % (11.5-14.5); WHITE BLOOD COUNT 8.6 X10'3 (4.5-11.0)
[2021-07-14 03:55] LABS: ALANINE AMINOTRANSFERASE 24 U/L (12-78); ALBUMIN 3.4 G/DL (3.4-5.0); ALKALINE PHOSPHATASE 224 IU/L (46-116); ANION GAP 11 (8-16); ASPARTATE AMINO TRANSFERASE 27 U/L (10-37); BILIRUBIN,TOTAL 0.3 MG/DL (0.1-1.0); BLOOD UREA NITROGEN 16 MG/DL (7-18); CALCIUM 7.9 MG/DL (8.5-10.1); CHLORIDE 108 MMOL/L (99-107); GLUCOSE 76 MG/DL (70-104); SODIUM 141 MMOL/L (135-145); TOTAL CARBON DIOXIDE 21.9 MMOL/L (24-32); TOTAL PROTEIN 6.8 G/DL (6.4-8.2); eGFR 56 ML/MIN
[2021-07-14 03:58] LABS: APTT 60 SECONDS (22-32); POTASSIUM 4.5 MMOL/L (3.5-5.1)
--- NOTE | 2021-07-14 04:00 | NUR ---
PT PRESENTS TO ED AFTER A FALL ON TUESDAY, SHE FELL ON HER RIGHT LEG. PT STATES THAT IT WAS SORE AND SHE COULD WALK ON IT. YESTERDAY SHE NOTICED THE DISCOLORATION AND SWELLING. TENDER TO TOUCH. ALL PULSES PALPLABLE. PT IS ON COUMADIN FOR AFIB. PT CAN BEAR WEIGHT ON LEG. NO ACUTE DISTRESS, WILL MONITOR THROUGHOUT.
[2021-07-14] MEDS ORDERED: fentaNYL/PF 50MCG/1 ML 2ML syringe IV ONE ×2 (04:10→05:15)
[2021-07-14] MEDS ORDERED: iohexol 350 MG/ML 50ML vial IV ONE (04:17)
[2021-07-14] MEDS ORDERED: iohexol 350MG/ML 100ml bottle IV ONE (04:17)
[2021-07-14] MEDS ORDERED: phytonadione inj. 5 MG in normal saline 100ml IV soln 100 ML IV ONE (05:30)
[2021-07-14] MEDS ORDERED: diphenhydrAMINE 50 mg/ml inj ONE (05:58)
[2021-07-14] MEDS ORDERED: morphine 4 MG/ML inj SYRINge IV ONE (06:55)
--- NOTE | 2021-07-14 08:20 | NUR ---
Patient reports pain medicine did not decrease pain in right leg; 12/28. Patient given ice packs per request.
[2021-07-14] MEDS ORDERED: HYDROmorphone inj. 0.5 MG/0.5 ML DISP.SYRIN IV ONE (09:20)
--- NOTE | 2021-07-14 09:53 | NUR ---
Used Doppler to confirm right leg pedal pulse. Patient reports burning pain in right lower leg.
[2021-07-14] MEDS ORDERED: magnesium hydroxide 30ml (MOM) UD suspension PO PRN (10:10)
[2021-07-14] MEDS ORDERED: diphenhydrAMINE 25mg capsule PO PRN (10:10)
[2021-07-14] MEDS ORDERED: bisacodyl 10mg suppository rectal RC PRN (10:10)
[2021-07-14] MEDS ORDERED: magnesium 4gm in 100ml NS 100 ML IV PRN (10:10)
[2021-07-14] MEDS ORDERED: potassium Cl 20 mEq SR tablet PO PRN ×2 (10:10)
[2021-07-14] MEDS ORDERED: potassium CL 10mEq/100ml bag 100 ML IV PRN (10:10)
[2021-07-14] MEDS ORDERED: ondansetron/PF 4mg/2ml inj IV PRN (10:10)
[2021-07-14] MEDS ORDERED: magnesium Cl slow-release 64mg tablet PO PRN (10:10)
[2021-07-14] MEDS ORDERED: magnesium 2GM in 50ml NS 50 ML IV PRN (10:10)
[2021-07-14] MEDS ORDERED: morphine 2 MG/ML inj. syringe IV PRN (10:10)
[2021-07-14] MEDS ORDERED: mag hydrox/Alum hydrox/simeth 30ml oral suspension PO PRN (10:10)
[2021-07-14] MEDS ORDERED: acetaminophen 325mg tablet PO PRN ×2 (10:10)
[2021-07-14 10:30] LABS: HEMOGLOBIN A1C 5.8 % (4.5-6.2)
[2021-07-14 10:31] LABS: HEMATOCRIT 37.7 % (35.0-45.0); HEMOGLOBIN 12.3 g/dl (12.0-16.0); MEAN CORPUSCULAR HEMOGLOBIN 30.7 PG (27.0-31.0); MEAN CORPUSCULAR HGB CONC 32.6 g/dL (33.0-36.5); MEAN CORPUSCULAR VOLUME 94.3 FL (78-98); MEAN PLATELET VOLUME 7.7 FL (7.4-10.4); PLATELET COUNT 299 X10'3 (140-440); RED BLOOD COUNT 3.99 X10'6 (4.20-5.60); RED CELL DISTRIBUTION WIDTH 15.2 % (11.5-14.5); WHITE BLOOD COUNT 8.6 X10'3 (4.5-11.0)
[2021-07-14] MEDS: normal saline 1000ml 1,000 ML IV SCH ×2 (11:22→23:30)
[2021-07-14] MEDS: morphine 2 MG/ML inj. syringe IV PRN ×2 (11:22→19:18)
[2021-07-14 13:46] LABS: HEMATOCRIT 37.6 % (35.0-45.0); HEMOGLOBIN 12.2 g/dl (12.0-16.0); MEAN CORPUSCULAR HEMOGLOBIN 30.6 PG (27.0-31.0); MEAN CORPUSCULAR HGB CONC 32.3 g/dL (33.0-36.5); MEAN CORPUSCULAR VOLUME 94.8 FL (78-98); MEAN PLATELET VOLUME 7.4 FL (7.4-10.4); PLATELET COUNT 306 X10'3 (140-440); RED BLOOD COUNT 3.97 X10'6 (4.20-5.60); RED CELL DISTRIBUTION WIDTH 15.3 % (11.5-14.5); WHITE BLOOD COUNT 7.9 X10'3 (4.5-11.0)
[2021-07-14] MEDS: HYDROcodone/acetaminophen 10/325mg tab PO PRN ×2 (13:52→20:53)
[2021-07-14 14:11] VITALS: BP 160/115
[2021-07-14 15:00] VITALS: BP 207/105
[2021-07-14] MEDS ORDERED: BUPR-317 PO (15:15)
[2021-07-14] MEDS ORDERED: TIZA4TAB11 PO (15:15)
[2021-07-14] MEDS ORDERED: LISI10TA27 PO (15:15)
[2021-07-14] MEDS ORDERED: MELO-102 PO (15:15)
[2021-07-14] MEDS ORDERED: HYDR50TA65 PO (15:15)
[2021-07-14] MEDS ORDERED: WARF-55 PO (15:15)
[2021-07-14] MEDS ORDERED: PROP60CA37 PO (15:15)
[2021-07-14] MEDS ORDERED: SOTA80TA46 PO (15:15)
[2021-07-14] MEDS: HYDROmorphone inj. 0.5 MG/0.5 ML DISP.SYRIN IV PRN (16:12)
--- NOTE | 2021-07-14 17:21 | NUR ---
PAGE SENT Message: [id number], NÉSTOR WOLF, PT'S BP HAS BEEN OVER 160, LAST BP 175/95. PAIN MEDS GIVEN, PT REPORTS SOME EFFECTIVENESS. PRN HYDRALAZINE? THANK YOU. HARPREET Rehman [phone]
[2021-07-14] MEDS ORDERED: hydrALAZINE 20mg/ml inj. IV PRN (17:35)
[2021-07-14] MEDS ORDERED: traZODone 150mg tablet PO PRN (17:35)
[2021-07-14] MEDS ORDERED: metoprolol tartrate 1mg/ml inj IV ONE (17:35)
[2021-07-14 18:00] VITALS: BP 176/95
[2021-07-14 18:13] LABS: HEMOGLOBIN 12.2 g/dl (12.0-16.0); MEAN CORPUSCULAR HEMOGLOBIN 31.2 PG (27.0-31.0); MEAN CORPUSCULAR HGB CONC 32.9 g/dL (33.0-36.5); MEAN CORPUSCULAR VOLUME 94.8 FL (78-98); MEAN PLATELET VOLUME 7.9 FL (7.4-10.4); PLATELET COUNT 327 X10'3 (140-440); RED CELL DISTRIBUTION WIDTH 15.1 % (11.5-14.5); WHITE BLOOD COUNT 8.5 X10'3 (4.5-11.0)
--- NOTE | 2021-07-14 18:39 | NUR ---
Problems reprioritized. Patient report given, questions answered & plan of care reviewed with RICHARD HAYES AND LEVON.
[2021-07-14] MEDS: K and/or MAG REPLACEMENT MC SCH (18:57)
--- NOTE | 2021-07-14 18:58 | NUR ---
Patient in room PCU 3017. I have received report from Tita RN and RICHARD Sousa and had the opportunity to ask questions and assume patient care.
[2021-07-14] MEDS: docusate sod 100mg capsule PO SCH (19:18)
[2021-07-14] MEDS: hydrOXYzine 25 MG tablet PO SCH (20:35)
[2021-07-14] MEDS: busPIRone 5mg tablet PO SCH (20:37)
[2021-07-14] MEDS: carBAMazepine Ext. Release 200 MG TAB.ER.12H PO SCH (20:38)
[2021-07-14] MEDS: sotalol 80mg tablet PO SCH (20:39)
[2021-07-14] MEDS: gabapentin 300mg capsule PO SCH (20:40)
[2021-07-14 22:00] VITALS: BP 199/106
[2021-07-14] MEDS: propranolol LA 60 MG cap.SA.24H PO SCH (22:00)
[2021-07-14 22:13] LABS: HEMATOCRIT 35.4 % (35.0-45.0); HEMOGLOBIN 11.7 g/dl (12.0-16.0); MEAN CORPUSCULAR HEMOGLOBIN 31.5 PG (27.0-31.0); MEAN CORPUSCULAR HGB CONC 33.1 g/dL (33.0-36.5); MEAN CORPUSCULAR VOLUME 95.3 FL (78-98); MEAN PLATELET VOLUME 7.9 FL (7.4-10.4); PLATELET COUNT 304 X10'3 (140-440); RED BLOOD COUNT 3.71 X10'6 (4.20-5.60); RED CELL DISTRIBUTION WIDTH 14.6 % (11.5-14.5); WHITE BLOOD COUNT 9.1 X10'3 (4.5-11.0)
[2021-07-14] MEDS: tizanidine 4mg tablet PO SCH (23:55)
[2021-07-15] VITALS (8 sets, daily range): BP systolic 92–158; BP diastolic 34–70
[2021-07-15] MEDS: morphine 2 MG/ML inj. syringe IV PRN ×2 (01:07→05:47)
[2021-07-15] MEDS: normal saline 1000ml 1,000 ML IV SCH (02:13)
[2021-07-15 02:42] LABS: BASOPHILS # (AUTO) 0.1 X10'3 (0-0.2); BASOPHILS % (AUTO) 0.8 % (0-1); EOSINOPHILS # (AUTO) 0.2 X10'3 (0-0.9); EOSINOPHILS % (AUTO) 1.8 % (0-6); HEMATOCRIT 31.2 % (35.0-45.0); HEMOGLOBIN 10.6 g/dl (12.0-16.0); LYMPHOCYTES # (AUTO) 1.5 X10'3 (1.1-4.8); LYMPHOCYTES % (AUTO) 16.5 % (21-51); MEAN CORPUSCULAR HEMOGLOBIN 32.3 PG (27.0-31.0); MEAN CORPUSCULAR HGB CONC 33.9 g/dL (33.0-36.5); MEAN CORPUSCULAR VOLUME 95.3 FL (78-98); MEAN PLATELET VOLUME 7.8 FL (7.4-10.4); MONOCYTES # (AUTO) 1.2 X10'3 (0-0.9); MONOCYTES % (AUTO) 13.3 % (2-12); NEUTROPHILS % (AUTO) 67.6 % (42-75); PLATELET COUNT 281 X10'3 (140-440); RED BLOOD COUNT 3.27 X10'6 (4.20-5.60); RED CELL DISTRIBUTION WIDTH 14.5 % (11.5-14.5); WHITE BLOOD COUNT 8.9 X10'3 (4.5-11.0)
[2021-07-15 03:16] LABS: ALANINE AMINOTRANSFERASE 58 U/L (12-78); ALBUMIN 2.9 G/DL (3.4-5.0); ALKALINE PHOSPHATASE 215 IU/L (46-116); ANION GAP 10 (8-16); ASPARTATE AMINO TRANSFERASE 66 U/L (10-37); BILIRUBIN,TOTAL 0.6 MG/DL (0.1-1.0); BLOOD UREA NITROGEN 13 MG/DL (7-18); BUN/CREATININE RATIO 12.5 (6.6-38.0); CALCIUM 7.3 MG/DL (8.5-10.1); CHLORIDE 106 MMOL/L (99-107); CHOL/HDL RATIO 2.3 (0.00-4.99); CHOLESTEROL 230 MG/DL (0-200); CREATININE 1.04 MG/DL (0.40-0.90); GLUCOSE 133 MG/DL (70-104); HDL CHOLESTEROL 100 MG/DL (35-60); LDL CHOLESTEROL 113 MG/DL (50-100); PHOSPHORUS 2.8 MG/DL (2.3-4.5); POTASSIUM 4.6 MMOL/L (3.5-5.1); SODIUM 138 MMOL/L (135-145); TOTAL CARBON DIOXIDE 22.4 MMOL/L (24-32); TOTAL PROTEIN 5.7 G/DL (6.4-8.2); TRIGLYCERIDES 79 MG/DL (20-135); eGFR 53 ML/MIN
--- NOTE | 2021-07-15 06:25 | NUR ---
Problems reprioritized. Patient report given, questions answered & plan of care reviewed with RICHARD Rivers.
--- NOTE | 2021-07-15 07:08 | NUR ---
Patient in room PCU 3017. I have received report from RICHARD HAYES AND RICHARD DOS SANTOS, and had the opportunity to ask questions and assume patient care.
[2021-07-15] MEDS: K and/or MAG REPLACEMENT MC SCH ×2 (07:26→20:00)
[2021-07-15] MEDS: HYDROmorphone inj. 0.5 MG/0.5 ML DISP.SYRIN IV PRN ×3 (07:28→16:24)
[2021-07-15] MEDS: ferrous sulfate 325mg tablet PO SCH (07:29)
[2021-07-15] MEDS: duloxetine 30mg CAPSULE.DR PO SCH (07:29)
[2021-07-15] MEDS: busPIRone 5mg tablet PO SCH ×3 (07:29→20:49)
[2021-07-15] MEDS: levoTHYROXINE 25mcg tablet PO SCH (07:29)
[2021-07-15] MEDS: docusate sod 100mg capsule PO SCH ×2 (07:30→20:49)
[2021-07-15] MEDS: gabapentin 300mg capsule PO SCH ×3 (07:30→20:49)
[2021-07-15] MEDS: lisinopril 10 MG tablet PO SCH (07:30)
[2021-07-15] MEDS: carBAMazepine Ext. Release 200 MG TAB.ER.12H PO SCH ×2 (07:32→20:50)
[2021-07-15] MEDS ORDERED: buproprion 150mg XL (24-hour) tablet PO SCH ×2 (08:00→09:49)
[2021-07-15] MEDS ORDERED: buPROPion SR 150mg tablet PO SCH ×2 (08:00→12:00)
[2021-07-15] MEDS: sotalol 80mg tablet PO SCH ×2 (09:42→20:50)
[2021-07-15] MEDS: tizanidine 4mg tablet PO SCH ×2 (09:42→16:24)
[2021-07-15] MEDS ORDERED: ondansetron 4mg rapidly disintigrating tab PO PRN (14:25)
--- NOTE | 2021-07-15 18:38 | NUR ---
Problems reprioritized. Patient report given, questions answered & plan of care reviewed with RICHARD HAYES.
[2021-07-15] MEDS: hydrOXYzine 25 MG tablet PO SCH (20:49)
[2021-07-15] MEDS: propranolol LA 60 MG cap.SA.24H PO SCH (20:49)
[2021-07-15] MEDS: HYDROcodone/acetaminophen 10/325mg tab PO PRN (21:10)
[2021-07-16] VITALS (7 sets, daily range): BP systolic 84–152; BP diastolic 27–71
[2021-07-16] MEDS: normal saline 1000ml 1,000 ML IV SCH ×2 (02:10→15:30)
[2021-07-16] MEDS: HYDROcodone/acetaminophen 10/325mg tab PO PRN (05:45)
--- NOTE | 2021-07-16 06:17 | NUR ---
Problems reprioritized. Patient report given, questions answered & plan of care reviewed with RICHARD Leavitt.
[2021-07-16 06:34] LABS: BASOPHILS % (AUTO) 0.5 % (0-1); EOSINOPHILS # (AUTO) 0.4 X10'3 (0-0.9); EOSINOPHILS % (AUTO) 5.8 % (0-6); HEMATOCRIT 28.1 % (35.0-45.0); HEMOGLOBIN 9.1 g/dl (12.0-16.0); LYMPHOCYTES # (AUTO) 1.8 X10'3 (1.1-4.8); LYMPHOCYTES % (AUTO) 24.2 % (21-51); MEAN CORPUSCULAR HEMOGLOBIN 31.1 PG (27.0-31.0); MEAN CORPUSCULAR HGB CONC 32.3 g/dL (33.0-36.5); MEAN CORPUSCULAR VOLUME 96.6 FL (78-98); MONOCYTES # (AUTO) 1.2 X10'3 (0-0.9); MONOCYTES % (AUTO) 15.7 % (2-12); NEUTROPHILS % (AUTO) 53.8 % (42-75); PLATELET COUNT 229 X10'3 (140-440); RED BLOOD COUNT 2.91 X10'6 (4.20-5.60); RED CELL DISTRIBUTION WIDTH 15.3 % (11.5-14.5); WHITE BLOOD COUNT 7.5 X10'3 (4.5-11.0)
[2021-07-16 06:47] LABS: ALANINE AMINOTRANSFERASE 35 U/L (12-78); ALBUMIN 2.4 G/DL (3.4-5.0); ALBUMIN/GLOBULIN RATIO 0.8 (1.1-1.5); ALKALINE PHOSPHATASE 175 IU/L (46-116); ANION GAP 9 (8-16); ASPARTATE AMINO TRANSFERASE 45 U/L (10-37); BILIRUBIN,TOTAL 0.4 MG/DL (0.1-1.0); BLOOD UREA NITROGEN 22 MG/DL (7-18); BUN/CREATININE RATIO 9.9 (6.6-38.0); CALCIUM 7.3 MG/DL (8.5-10.1); CHLORIDE 106 MMOL/L (99-107); CREATININE 2.23 MG/DL (0.40-0.90); GLUCOSE 99 MG/DL (70-104); MAGNESIUM 2.3 MG/DL (1.5-2.4); POTASSIUM 4.3 MMOL/L (3.5-5.1); SODIUM 136 MMOL/L (135-145); TOTAL CARBON DIOXIDE 20.7 MMOL/L (24-32); TOTAL PROTEIN 5.4 G/DL (6.4-8.2); eGFR 22 ML/MIN
--- NOTE | 2021-07-16 07:00 | NUR ---
Message: Monica Baker 2099G is hypotensive 84/27 (46) RR12 heart 58. She is asymptomatic, but wanted to let you know. Her last [place] was around 5:30. Please advise. Thank you Dagmar RAMOS [phone]
[2021-07-16] MEDS ORDERED: buproprion 150mg XL (24-hour) tablet PO SCH ×2 (08:00)
[2021-07-16] MEDS: K and/or MAG REPLACEMENT MC SCH ×2 (08:00→20:00)
[2021-07-16] MEDS: lisinopril 10 MG tablet PO SCH (08:00)
[2021-07-16] MEDS: sotalol 80mg tablet PO SCH ×2 (08:00→23:40)
[2021-07-16] MEDS: carBAMazepine Ext. Release 200 MG TAB.ER.12H PO SCH ×2 (08:00→20:19)
[2021-07-16] MEDS: duloxetine 30mg CAPSULE.DR PO SCH (09:27)
[2021-07-16] MEDS: gabapentin 300mg capsule PO SCH ×2 (09:28→13:06)
[2021-07-16] MEDS: docusate sod 100mg capsule PO SCH ×2 (09:28→20:00)
[2021-07-16] MEDS: ferrous sulfate 325mg tablet PO SCH (09:28)
[2021-07-16] MEDS: tizanidine 4mg tablet PO SCH ×3 (09:29→15:04)
[2021-07-16] MEDS: busPIRone 5mg tablet PO SCH ×3 (09:29→20:17)
[2021-07-16] MEDS: levoTHYROXINE 25mcg tablet PO SCH (09:29)
[2021-07-16] MEDS: HYDROcodone/acetaminophen 5mg/325mg tablet PO PRN ×2 (10:23→23:42)
--- NOTE | 2021-07-16 10:49 | NUR ---
Dr Moe came see patient he wanted me to Call Hasmukh Vilchis O/N doctor because the patient is complaining of numbness in right foot. Dr. Moe is going to repeat CT scan and wants patient to have 500mL Bolus of NS, I am getting started right now.
[2021-07-16] MEDS: HYDROmorphone/PF 0.2 MG/ML SYRINGE IV PRN (13:08)
--- NOTE | 2021-07-16 15:30 | NUR ---
Message: [id number] Mayelin Baker blood pressure of 68/32 (43) HR [address] Vilchis has not seen or called back, please communicate with him? Pt still numb in R leg. I am giving a 2nd fluid bolus. Want to support her BP? advise me Dagmar RAMOS ext [phone]
[2021-07-16] MEDS ORDERED: LIDOcaine 1% 30ml preserv. free vial ONE (16:06)
[2021-07-16] MEDS: morphine 2 MG/ML inj. syringe IV PRN ×2 (16:22→20:16)
--- NOTE | 2021-07-16 16:30 | NUR ---
Dr. Vilchis made it to see patient after his surgery was over. He open and drained hematoma at the bedside. He said CT wouldn't be necassary.
[2021-07-16 16:33] LABS: HEMATOCRIT 25.4 % (35.0-45.0); HEMOGLOBIN 8.4 g/dl (12.0-16.0); MEAN CORPUSCULAR HEMOGLOBIN 31.7 PG (27.0-31.0); MEAN CORPUSCULAR HGB CONC 32.9 g/dL (33.0-36.5); MEAN CORPUSCULAR VOLUME 96.5 FL (78-98); MEAN PLATELET VOLUME 7.5 FL (7.4-10.4); PLATELET COUNT 240 X10'3 (140-440); RED BLOOD COUNT 2.63 X10'6 (4.20-5.60); RED CELL DISTRIBUTION WIDTH 15.2 % (11.5-14.5); WHITE BLOOD COUNT 7.4 X10'3 (4.5-11.0)
--- NOTE | 2021-07-16 16:35 | NUR ---
Message: [id number]. Mayelin Baker. Dr Vilchis in room, drained R leg hematoma, CT not needed per Dr Vilchis. YOSEPH. Dagmar Aponte [phone] Custom Responses:promotional table spacer Transaction number: [id number]
--- NOTE | 2021-07-16 18:24 | NUR ---
Problems reprioritized. Patient report given, questions answered & plan of care reviewed with RICHARD Leavitt.
[2021-07-16 22:54] LABS: HEMOGLOBIN 9.1 g/dl (12.0-16.0); MEAN CORPUSCULAR HEMOGLOBIN 32.5 PG (27.0-31.0); MEAN CORPUSCULAR HGB CONC 33.7 g/dL (33.0-36.5); MEAN CORPUSCULAR VOLUME 96.3 FL (78-98); MEAN PLATELET VOLUME 7.9 FL (7.4-10.4); PLATELET COUNT 247 X10'3 (140-440); RED BLOOD COUNT 2.81 X10'6 (4.20-5.60); RED CELL DISTRIBUTION WIDTH 14.8 % (11.5-14.5)
--- NOTE | 2021-07-16 23:28 | NUR ---
Pt had some shadowing on the dressing of her hematoma evac site. Re-inforced dressing with gauze, ABD and gauze roll with Charge Nurse RICHARD Shaffer.
[2021-07-16] MEDS: propranolol LA 60 MG cap.SA.24H PO SCH (23:40)
[2021-07-16] MEDS: hydrOXYzine 25 MG tablet PO SCH (23:41)
[2021-07-17 02:51] VITALS: BP 119/47
[2021-07-17] MEDS: morphine 2 MG/ML inj. syringe IV PRN ×4 (02:58→21:20)
[2021-07-17] MEDS: normal saline 1000ml 1,000 ML IV SCH ×2 (03:31→15:40)
[2021-07-17 04:18] LABS: BASOPHILS # (AUTO) 0.1 X10'3 (0-0.2); BASOPHILS % (AUTO) 0.8 % (0-1); EOSINOPHILS # (AUTO) 0.4 X10'3 (0-0.9); EOSINOPHILS % (AUTO) 6.3 % (0-6); HEMATOCRIT 27.7 % (35.0-45.0); LYMPHOCYTES # (AUTO) 1.6 X10'3 (1.1-4.8); LYMPHOCYTES % (AUTO) 22.6 % (21-51); MEAN CORPUSCULAR HGB CONC 32.3 g/dL (33.0-36.5); MEAN PLATELET VOLUME 7.8 FL (7.4-10.4); MONOCYTES # (AUTO) 1.1 X10'3 (0-0.9); MONOCYTES % (AUTO) 16.2 % (2-12); NEUTROPHILS # (AUTO) 3.8 X10'3 (1.8-7.7); NEUTROPHILS % (AUTO) 54.1 % (42-75); PLATELET COUNT 261 X10'3 (140-440); RED BLOOD COUNT 2.89 X10'6 (4.20-5.60)
[2021-07-17 04:33] LABS: ALANINE AMINOTRANSFERASE 31 U/L (12-78); ALBUMIN 2.6 G/DL (3.4-5.0); ALKALINE PHOSPHATASE 186 IU/L (46-116); ANION GAP 10 (8-16); ASPARTATE AMINO TRANSFERASE 43 U/L (10-37); BILIRUBIN,TOTAL 0.5 MG/DL (0.1-1.0); BLOOD UREA NITROGEN 23 MG/DL (7-18); BUN/CREATININE RATIO 15.6 (6.6-38.0); CALCIUM 7.1 MG/DL (8.5-10.1); CHLORIDE 110 MMOL/L (99-107); CREATININE 1.47 MG/DL (0.40-0.90); GLUCOSE 94 MG/DL (70-104); MAGNESIUM 2.3 MG/DL (1.5-2.4); PHOSPHORUS 3.1 MG/DL (2.3-4.5); POTASSIUM 4.7 MMOL/L (3.5-5.1); SODIUM 139 MMOL/L (135-145); TOTAL CARBON DIOXIDE 19.2 MMOL/L (24-32); TOTAL PROTEIN 5.3 G/DL (6.4-8.2); eGFR 36 ML/MIN
[2021-07-17 06:00] VITALS: BP 143/56
--- NOTE | 2021-07-17 06:26 | NUR ---
Problems reprioritized. Patient report given, questions answered & plan of care reviewed with RICHARD Leavitt.
[2021-07-17] MEDS ORDERED: WELLBUTRIN 300 MG PO SCH (07:14)
[2021-07-17] MEDS ORDERED: WELLBUTRIN 150 MG PO SCH (07:16)
[2021-07-17] MEDS: K and/or MAG REPLACEMENT MC SCH ×2 (08:00→20:00)
[2021-07-17] MEDS ORDERED: buPROPion SR 150mg tablet PO SCH (08:00)
[2021-07-17] MEDS: tizanidine 4mg tablet PO SCH ×3 (08:00→15:24)
[2021-07-17] MEDS: ferrous sulfate 325mg tablet PO SCH (08:35)
[2021-07-17] MEDS: duloxetine 30mg CAPSULE.DR PO SCH (08:37)
[2021-07-17] MEDS: docusate sod 100mg capsule PO SCH ×2 (08:37→20:43)
[2021-07-17] MEDS: busPIRone 5mg tablet PO SCH ×3 (08:37→20:59)
[2021-07-17] MEDS: sotalol 80mg tablet PO SCH ×2 (08:37→20:44)
[2021-07-17] MEDS: carBAMazepine Ext. Release 200 MG TAB.ER.12H PO SCH ×2 (08:38→20:59)
[2021-07-17] MEDS: levoTHYROXINE 25mcg tablet PO SCH (08:45)
[2021-07-17] MEDS: buPROPion SR 150mg tablet PO SCH ×2 (08:56→20:59)
--- NOTE | 2021-07-17 09:07 | NUR ---
Message: ROOM [id number] Samuel Mayelin medication Bupropion SR 150Mg Pt usually takes 500mg but Pharmacy can do 300mg in the am and 150mg at night. Pharmacy said they can change order. FYI is that ok with you. Alyce N11 ext [phone]
[2021-07-17 11:00] VITALS: BP 137/53
[2021-07-17 11:00] LABS: HEMATOCRIT 27.9 % (35.0-45.0); MEAN CORPUSCULAR HEMOGLOBIN 30.9 PG (27.0-31.0); MEAN CORPUSCULAR HGB CONC 32.3 g/dL (33.0-36.5); MEAN CORPUSCULAR VOLUME 95.9 FL (78-98); MEAN PLATELET VOLUME 7.9 FL (7.4-10.4); PLATELET COUNT 281 X10'3 (140-440); RED BLOOD COUNT 2.91 X10'6 (4.20-5.60); RED CELL DISTRIBUTION WIDTH 14.9 % (11.5-14.5); WHITE BLOOD COUNT 6.1 X10'3 (4.5-11.0)
[2021-07-17] MEDS: HYDROcodone/acetaminophen 10/325mg tab PO PRN (11:58)
[2021-07-17] MEDS: HYDROmorphone/PF 0.2 MG/ML SYRINGE IV PRN (13:11)
[2021-07-17 15:00] VITALS: BP 146/61
[2021-07-17 15:56] LABS: HEMATOCRIT 26.8 % (35.0-45.0); HEMOGLOBIN 8.9 g/dl (12.0-16.0); MEAN CORPUSCULAR HEMOGLOBIN 32.1 PG (27.0-31.0); MEAN CORPUSCULAR HGB CONC 33.3 g/dL (33.0-36.5); MEAN CORPUSCULAR VOLUME 96.5 FL (78-98); MEAN PLATELET VOLUME 7.6 FL (7.4-10.4); PLATELET COUNT 276 X10'3 (140-440); RED BLOOD COUNT 2.78 X10'6 (4.20-5.60); WHITE BLOOD COUNT 5.6 X10'3 (4.5-11.0)
[2021-07-17 18:00] VITALS: BP 124/56
--- NOTE | 2021-07-17 18:22 | NUR ---
Problems reprioritized. Patient report given, questions answered & plan of care reviewed with Allegra .
--- NOTE | 2021-07-17 18:46 | NUR ---
Patient in room PCU 3017. I have received report from maurice and had the opportunity to ask questions and assume patient care.
[2021-07-17] MEDS: hydrOXYzine 25 MG tablet PO SCH (20:59)
[2021-07-17] MEDS: gabapentin 300mg capsule PO SCH (20:59)
[2021-07-17] MEDS: propranolol LA 60 MG cap.SA.24H PO SCH (20:59)
[2021-07-17 22:00] VITALS: BP 121/56
[2021-07-18] VITALS (7 sets, daily range): BP systolic 91–150; BP diastolic 48–79
[2021-07-18] MEDS: tizanidine 4mg tablet PO SCH ×4 (00:10→23:09)
[2021-07-18] MEDS: HYDROmorphone inj. 0.5 MG/0.5 ML DISP.SYRIN IV PRN ×4 (04:54→14:51)
--- NOTE | 2021-07-18 06:53 | NUR ---
Problems reprioritized. Patient report given, questions answered & plan of care reviewed with josephine.
[2021-07-18] MEDS: sotalol 80mg tablet PO SCH ×2 (08:00→20:41)
[2021-07-18] MEDS: docusate sod 100mg capsule PO SCH ×2 (08:00→20:45)
[2021-07-18] MEDS: K and/or MAG REPLACEMENT MC SCH ×2 (08:00→20:00)
[2021-07-18 08:24] LABS: BASOPHILS % (AUTO) 0.7 % (0-1); EOSINOPHILS # (AUTO) 0.4 X10'3 (0-0.9); EOSINOPHILS % (AUTO) 6.5 % (0-6); HEMATOCRIT 25.7 % (35.0-45.0); HEMOGLOBIN 8.3 g/dl (12.0-16.0); LYMPHOCYTES # (AUTO) 1.1 X10'3 (1.1-4.8); LYMPHOCYTES % (AUTO) 19.5 % (21-51); MEAN CORPUSCULAR HEMOGLOBIN 31.3 PG (27.0-31.0); MEAN CORPUSCULAR HGB CONC 32.4 g/dL (33.0-36.5); MEAN CORPUSCULAR VOLUME 96.6 FL (78-98); MEAN PLATELET VOLUME 7.9 FL (7.4-10.4); MONOCYTES # (AUTO) 0.7 X10'3 (0-0.9); MONOCYTES % (AUTO) 12.9 % (2-12); NEUTROPHILS # (AUTO) 3.3 X10'3 (1.8-7.7); NEUTROPHILS % (AUTO) 60.4 % (42-75); PLATELET COUNT 282 X10'3 (140-440); RED BLOOD COUNT 2.66 X10'6 (4.20-5.60); RED CELL DISTRIBUTION WIDTH 15.4 % (11.5-14.5); WHITE BLOOD COUNT 5.5 X10'3 (4.5-11.0)
[2021-07-18] MEDS: levoTHYROXINE 25mcg tablet PO SCH (08:40)
[2021-07-18] MEDS: ferrous sulfate 325mg tablet PO SCH (08:40)
[2021-07-18] MEDS: busPIRone 5mg tablet PO SCH ×3 (08:41→20:51)
[2021-07-18] MEDS: buPROPion SR 150mg tablet PO SCH ×2 (08:43→20:43)
[2021-07-18] MEDS: duloxetine 30mg CAPSULE.DR PO SCH (08:43)
[2021-07-18 08:45] LABS: ALANINE AMINOTRANSFERASE 22 U/L (12-78); ALBUMIN 2.4 G/DL (3.4-5.0); ALBUMIN/GLOBULIN RATIO 0.7 (1.1-1.5); ALKALINE PHOSPHATASE 170 IU/L (46-116); ANION GAP 8 (8-16); ASPARTATE AMINO TRANSFERASE 29 U/L (10-37); BILIRUBIN,TOTAL 0.6 MG/DL (0.1-1.0); BLOOD UREA NITROGEN 15 MG/DL (7-18); BUN/CREATININE RATIO 15.6 (6.6-38.0); CALCIUM 7.5 MG/DL (8.5-10.1); CHLORIDE 108 MMOL/L (99-107); CREATININE 0.96 MG/DL (0.40-0.90); GLUCOSE 88 MG/DL (70-104); MAGNESIUM 1.8 MG/DL (1.5-2.4); PHOSPHORUS 2.4 MG/DL (2.3-4.5); POTASSIUM 4.9 MMOL/L (3.5-5.1); SODIUM 139 MMOL/L (135-145); TOTAL PROTEIN 5.7 G/DL (6.4-8.2); eGFR 58 ML/MIN
[2021-07-18] MEDS: carBAMazepine Ext. Release 200 MG TAB.ER.12H PO SCH ×2 (08:45→20:48)
[2021-07-18] MEDS: normal saline 1000ml 1,000 ML IV SCH (10:12)
[2021-07-18] MEDS: HYDROcodone/acetaminophen 10/325mg tab PO PRN (10:21)
--- NOTE | 2021-07-18 15:22 | NUR ---
Cleaned the wound using sterile technique.Wound bed is healing.Reta wound is light pink. Light pink serosanguineous drainage with no S/S of infection or redness.
--- NOTE | 2021-07-18 17:22 | NUR ---
DIRECTOR DISTRIBUTION documentation: I have reviewed and agree with all interventions, assessments performed and documented by ASHLEY Mead.
--- NOTE | 2021-07-18 18:30 | NUR ---
Patient in room PCU 3017. I have received report from john welch and had the opportunity to ask questions and assume patient care.
--- NOTE | 2021-07-18 18:34 | NUR ---
Problems reprioritized. Patient report given, questions answered & plan of care reviewed with Charley RAMOS.
--- NOTE | 2021-07-18 20:04 | NUR ---
Patient in room PCU 3017. I have received report from Rachelle RAMOS and had the opportunity to ask questions and assume patient care.
[2021-07-18] MEDS: morphine 2 MG/ML inj. syringe IV PRN (20:42)
[2021-07-18] MEDS: gabapentin 300mg capsule PO SCH (20:44)
[2021-07-18] MEDS: hydrOXYzine 25 MG tablet PO SCH (20:45)
[2021-07-18] MEDS: propranolol LA 60 MG cap.SA.24H PO SCH (20:52)
[2021-07-19 02:00] VITALS: BP 123/38
[2021-07-19] MEDS: HYDROmorphone inj. 0.5 MG/0.5 ML DISP.SYRIN IV PRN ×2 (04:49→08:59)
[2021-07-19] MEDS: normal saline 1000ml 1,000 ML IV SCH (04:53)
[2021-07-19 06:00] VITALS: BP 130/61
--- NOTE | 2021-07-19 06:30 | NUR ---
Patient in room PCU 3017. I have received report from RICHARD Briggs and had the opportunity to ask questions and assume patient care.
--- NOTE | 2021-07-19 06:30 | NUR ---
Patient in room PCU 3017. I have received report from RICHARD Briggs and had the opportunity to ask questions and assume patient care.
--- NOTE | 2021-07-19 06:39 | NUR ---
Problems reprioritized. Patient report given, questions answered & plan of care reviewed with tee RN.
[2021-07-19 07:25] LABS: BASOPHILS % (AUTO) 0.7 % (0-1); EOSINOPHILS # (AUTO) 0.3 X10'3 (0-0.9); EOSINOPHILS % (AUTO) 4.6 % (0-6); HEMATOCRIT 26.9 % (35.0-45.0); HEMOGLOBIN 8.7 g/dl (12.0-16.0); LYMPHOCYTES # (AUTO) 1.6 X10'3 (1.1-4.8); LYMPHOCYTES % (AUTO) 22.8 % (21-51); MEAN CORPUSCULAR HEMOGLOBIN 31.2 PG (27.0-31.0); MEAN CORPUSCULAR HGB CONC 32.5 g/dL (33.0-36.5); MEAN CORPUSCULAR VOLUME 95.9 FL (78-98); MEAN PLATELET VOLUME 7.8 FL (7.4-10.4); MONOCYTES % (AUTO) 14.8 % (2-12); NEUTROPHILS % (AUTO) 57.1 % (42-75); PLATELET COUNT 318 X10'3 (140-440); RED CELL DISTRIBUTION WIDTH 14.9 % (11.5-14.5)
[2021-07-19 07:27] LABS: ALANINE AMINOTRANSFERASE 22 U/L (12-78); ALBUMIN 2.5 G/DL (3.4-5.0); ALBUMIN/GLOBULIN RATIO 0.7 (1.1-1.5); ALKALINE PHOSPHATASE 183 IU/L (46-116); ANION GAP 9 (8-16); ASPARTATE AMINO TRANSFERASE 25 U/L (10-37); BILIRUBIN,TOTAL 0.7 MG/DL (0.1-1.0); BLOOD UREA NITROGEN 10 MG/DL (7-18); BUN/CREATININE RATIO 10.4 (6.6-38.0); CALCIUM 7.7 MG/DL (8.5-10.1); CHLORIDE 107 MMOL/L (99-107); CREATININE 0.96 MG/DL (0.40-0.90); GLUCOSE 92 MG/DL (70-104); MAGNESIUM 1.7 MG/DL (1.5-2.4); PHOSPHORUS 2.2 MG/DL (2.3-4.5); POTASSIUM 4.7 MMOL/L (3.5-5.1); SODIUM 137 MMOL/L (135-145); TOTAL CARBON DIOXIDE 20.8 MMOL/L (24-32); TOTAL PROTEIN 5.9 G/DL (6.4-8.2); eGFR 58 ML/MIN
[2021-07-19] MEDS: K and/or MAG REPLACEMENT MC SCH (08:00)
[2021-07-19] MEDS: docusate sod 100mg capsule PO SCH (08:00)
[2021-07-19] MEDS: sotalol 80mg tablet PO SCH (08:58)
[2021-07-19] MEDS: carBAMazepine Ext. Release 200 MG TAB.ER.12H PO SCH (09:00)
[2021-07-19] MEDS: ferrous sulfate 325mg tablet PO SCH (09:01)
[2021-07-19] MEDS: duloxetine 30mg CAPSULE.DR PO SCH (09:01)
[2021-07-19] MEDS: buPROPion SR 150mg tablet PO SCH (09:01)
[2021-07-19] MEDS: tizanidine 4mg tablet PO SCH (09:02)
[2021-07-19] MEDS: busPIRone 5mg tablet PO SCH ×2 (09:03→12:46)
[2021-07-19] MEDS: levoTHYROXINE 25mcg tablet PO SCH (09:03)
[2021-07-19 11:00] VITALS: BP 107/45
--- NOTE | 2021-07-19 11:18 | NUR ---
This appeals writer has attempted to give report to several times without any answer by the receiving facility.
[2021-07-19] MEDS: HYDROcodone/acetaminophen 10/325mg tab PO PRN (11:57)
--- NOTE | 2021-07-19 13:35 | NUR ---
Pt discharged from the hospital to [facility] via [employer] transport. Report called to [facility] without any response. PIV and telemetry removed prior to discharge. Belongings were returned to the pt prior to discharge.
== END 2021-07-19 13:35 | DRG 604 ==
LOC: ER 01:14 → ED HOLD 10:11 → PCU 3S 12:34
PROVIDERS: ADMIT Family Medicine; ATTEND Family Medicine
PROC: B42F1ZZ Computerized Tomography (CT Scan) of Right Lower Extremity Arteries using Low Osmolar Contrast (ICD-10-PCS; 2021-07-14)
PROC: 0J9N0ZZ Drainage of Right Lower Leg Subcutaneous Tissue and Fascia, Open Approach (ICD-10-PCS; principal; 2021-07-16)
DX: S80.11XA Contusion of right lower leg, initial encounter (principal); N17.0 Acute kidney failure with tubular necrosis; E87.2 Acidosis; N17.9 Acute kidney failure, unspecified; R79.1 Abnormal coagulation profile; G89.4 Chronic pain syndrome; F41.9 Anxiety disorder, unspecified; F32.A Depression, unspecified; E03.9 Hypothyroidism, unspecified; G62.9 Polyneuropathy, unspecified; M54.9 Dorsalgia, unspecified; W01.0XXA Fall on same level from slipping, tripping and stumbling without subsequent striking against object, initial encounter; G57.81 Other specified mononeuropathies of right lower limb; E66.01 Morbid (severe) obesity due to excess calories; Z96.651 Presence of right artificial knee joint; I12.9 Hypertensive chronic kidney disease with stage 1 through stage 4 chronic kidney disease, or unspecified chronic kidney disease; I48.0 Paroxysmal atrial fibrillation; N18.9 Chronic kidney disease, unspecified; Z79.01 Long term (current) use of anticoagulants; Z79.890 Hormone replacement therapy; Z82.49 Family history of ischemic heart disease and other diseases of the circulatory system; Z83.3 Family history of diabetes mellitus; Z87.891 Personal history of nicotine dependence; Z98.84 Bariatric surgery status; Y93.89 Activity, other specified; Y92.098 Other place in other non-institutional residence as the place of occurrence of the external cause; Y99.8 Other external cause status; Z68.37 Body mass index [BMI] 37.0-37.9, adult; Z79.899 Other long term (current) drug therapy
CPT/HCPCS: 36415; 73560; 73590; 73706; 80053; 80061; 83036; 83735; 84100; 84443; 85025; 85027; 85610; 85730; 86885; 86900; 86901; 87081; 96365; 96375; 96376; 97116; 97161; 97530; 99285; G0378; J1170; J1200; J2270; J2405; J3010; J3430; J3490; J7030; Q0177; Q9967

== ENCOUNTER 2021-07-22 12:22 | Emergency (ER) | payer BC ==
[~2021-07-22] VITALS: Ht 162.6 cm; Wt 100.0 kg
[~2021-07-22 12:22] MED LIST changes: -APIX5TAB3 PO; +BUPR-317 PO; -CLON0.5T5 PO; +HYDR50TA65 PO; +LISI10TA27 PO; +MELO-102 PO; +PROP60CA37 PO; +SOTA80TA46 PO; -SOTA80TA73 PO; +TIZA4TAB11 PO; +WARF-55 PO
[2021-07-22] MEDS ORDERED: oxyCODONE/APAP 10/325mg tablet PO ONE (12:50)
[2021-07-22 13:11] LABS: BASOPHILS # (AUTO) 0.1 X10'3 (0-0.2); BASOPHILS % (AUTO) 0.9 % (0-1); EOSINOPHILS # (AUTO) 0.3 X10'3 (0-0.9); HEMATOCRIT 32.2 % (35.0-45.0); LYMPHOCYTES # (AUTO) 1.6 X10'3 (1.1-4.8); LYMPHOCYTES % (AUTO) 19.6 % (21-51); MEAN CORPUSCULAR HEMOGLOBIN 30.9 PG (27.0-31.0); MEAN CORPUSCULAR VOLUME 99.6 FL (78-98); MEAN PLATELET VOLUME 7.1 FL (7.4-10.4); MONOCYTES # (AUTO) 0.9 X10'3 (0-0.9); MONOCYTES % (AUTO) 10.7 % (2-12); NEUTROPHILS # (AUTO) 5.2 X10'3 (1.8-7.7); NEUTROPHILS % (AUTO) 64.8 % (42-75); PLATELET COUNT 435 X10'3 (140-440); RED BLOOD COUNT 3.24 X10'6 (4.20-5.60); RED CELL DISTRIBUTION WIDTH 16.1 % (11.5-14.5)
[2021-07-22] MEDS ORDERED: iohexol 300mg/ml 100ml inj. ONE (13:15)
[2021-07-22 13:28] LABS: ALANINE AMINOTRANSFERASE 14 U/L (12-78); ALBUMIN 2.5 G/DL (3.4-5.0); ALBUMIN/GLOBULIN RATIO 0.7 (1.1-1.5); ALKALINE PHOSPHATASE 186 IU/L (46-116); ANION GAP 11 (8-16); ASPARTATE AMINO TRANSFERASE 14 U/L (10-37); BILIRUBIN,TOTAL 0.6 MG/DL (0.1-1.0); BLOOD UREA NITROGEN 13 MG/DL (7-18); BUN/CREATININE RATIO 14.4 (6.6-38.0); CALCIUM 7.7 MG/DL (8.5-10.1); CHLORIDE 107 MMOL/L (99-107); GLUCOSE 84 MG/DL (70-104); POTASSIUM 4.2 MMOL/L (3.5-5.1); SODIUM 138 MMOL/L (135-145); TOTAL CARBON DIOXIDE 20.2 MMOL/L (24-32); TOTAL PROTEIN 6.3 G/DL (6.4-8.2); eGFR 63 ML/MIN
[2021-07-22] MEDS ORDERED: morphine 4 MG/ML inj SYRINge IM ONE (14:40)
[2021-07-22 17:37] VITALS: BP 152/77
== END 2021-07-22 17:38 | disposition home or self-care (01) ==
LOC: ER 12:22
DX: G89.18 Other acute postprocedural pain (principal); M21.371 Foot drop, right foot; M79.604 Pain in right leg
CPT/HCPCS: 36415; 73701; 80053; 85025; 96372; 99285; J2270; Q9967

== ENCOUNTER 2021-09-03 01:28 | Emergency (ER) | payer BC ==
[~2021-09-03] VITALS: Ht 162.6 cm; Wt 113.6 kg
[2021-09-03] MEDS ORDERED: normal saline 1000ml 1,000 ML IV ONE ×2 (02:00→02:45)
--- NOTE | 2021-09-03 02:50 | NUR ---
Notified Doctor Peairs of continued hypotension. Started second liter of fluid. Patient's blood pressure rising.
[2021-09-03 03:15] LABS: BASOPHILS # (AUTO) 0.1 X10'3 (0-0.2); BASOPHILS % (AUTO) 0.9 % (0-1); EOSINOPHILS # (AUTO) 0.5 X10'3 (0-0.9); EOSINOPHILS % (AUTO) 6.1 % (0-6); HEMATOCRIT 40.7 % (35.0-45.0); HEMOGLOBIN 12.6 g/dl (12.0-16.0); LYMPHOCYTES # (AUTO) 1.7 X10'3 (1.1-4.8); LYMPHOCYTES % (AUTO) 19.6 % (21-51); MEAN CORPUSCULAR HEMOGLOBIN 30.9 PG (27.0-31.0); MEAN CORPUSCULAR HGB CONC 31.1 g/dL (33.0-36.5); MEAN CORPUSCULAR VOLUME 99.5 FL (78-98); MEAN PLATELET VOLUME 7.9 FL (7.4-10.4); MONOCYTES # (AUTO) 1.1 X10'3 (0-0.9); MONOCYTES % (AUTO) 13.1 % (2-12); NEUTROPHILS # (AUTO) 5.2 X10'3 (1.8-7.7); NEUTROPHILS % (AUTO) 60.3 % (42-75); PLATELET COUNT 269 X10'3 (140-440); RED BLOOD COUNT 4.09 X10'6 (4.20-5.60); RED CELL DISTRIBUTION WIDTH 14.9 % (11.5-14.5); WHITE BLOOD COUNT 8.6 X10'3 (4.5-11.0)
[2021-09-03 03:26] LABS: ALANINE AMINOTRANSFERASE 24 U/L (12-78); ALBUMIN 3.1 G/DL (3.4-5.0); ALBUMIN/GLOBULIN RATIO 0.9 (1.1-1.5); ALKALINE PHOSPHATASE 206 IU/L (46-116); ANION GAP 8 (8-16); ASPARTATE AMINO TRANSFERASE 18 U/L (10-37); BILIRUBIN,TOTAL 0.2 MG/DL (0.1-1.0); BLOOD UREA NITROGEN 17 MG/DL (7-18); BUN/CREATININE RATIO 10.9 (6.6-38.0); CALCIUM 7.8 MG/DL (8.5-10.1); CHLORIDE 110 MMOL/L (99-107); CREATININE 1.56 MG/DL (0.40-0.90); GLUCOSE 89 MG/DL (70-104); SODIUM 141 MMOL/L (135-145); TOTAL CARBON DIOXIDE 22.7 MMOL/L (24-32); TOTAL PROTEIN 6.5 G/DL (6.4-8.2); eGFR 33 ML/MIN
[2021-09-03] MEDS ORDERED: cefTRIAXone 1g/NS 100ml IVPB 100 ML IV ONE (07:30)
[2021-09-03] MEDS ORDERED: HYDROcodone/acetaminophen 5mg/325mg tablet PO ONE (07:30)
[2021-09-03 08:37] VITALS: BP 178/81
== END 2021-09-03 08:40 | disposition home or self-care (01) ==
LOC: ER 01:28
DX: M96.840 Postprocedural hematoma of a musculoskeletal structure following a musculoskeletal system procedure (principal); L03.115 Cellulitis of right lower limb; I10 Essential (primary) hypertension; G89.29 Other chronic pain; Z98.890 Other specified postprocedural states; Z79.899 Other long term (current) drug therapy; Z79.01 Long term (current) use of anticoagulants
CPT/HCPCS: 36415; 80053; 85025; 93005; 96365; 99285; J0696; J3490; J7030; 99284; A6258; A6449

== ENCOUNTER 2022-09-18 13:48 | Inpatient (IN) | payer BC ==
[~2022-09-18] VITALS: Ht 162.6 cm; Wt 78.3 kg
[~2022-09-18 13:48] MED LIST changes: +ALBU2.5V13 NEB; +ATR0.5NEB IH; -CARB200C7 PO; +DOCU100T2 PO; -ESTR0.5T28 PO; -FERR325T29 PO; +FURO-150 PO; +IRON150C5 PO; -MELO-102 PO; +MIRT-87 PO; +ONDA8TAB13 PO; +PANT-47 PO; +POTA-206 PO; -PROP60CA37 PO; +SUCR1TAB PO; +SUMA50TA PO; -TIZA4TAB11 PO
[2022-09-18 15:03] LABS: BASOPHILS # (AUTO) 0.1 X10'3 (0-0.2); BASOPHILS % (AUTO) 1.8 % (0-1); EOSINOPHILS # (AUTO) 0.2 X10'3 (0-0.9); EOSINOPHILS % (AUTO) 4.5 % (0-6); HEMATOCRIT 34.8 % (35.0-45.0); HEMOGLOBIN 10.9 g/dl (12.0-16.0); LYMPHOCYTES # (AUTO) 2.2 X10'3 (1.1-4.8); LYMPHOCYTES % (AUTO) 40.9 % (21-51); MEAN CORPUSCULAR HEMOGLOBIN 28.4 PG (27.0-31.0); MEAN CORPUSCULAR HGB CONC 31.5 g/dL (33.0-36.5); MEAN CORPUSCULAR VOLUME 90.2 FL (78-98); MEAN PLATELET VOLUME 7.6 FL (7.4-10.4); MONOCYTES # (AUTO) 0.4 X10'3 (0-0.9); NEUTROPHILS # (AUTO) 2.5 X10'3 (1.8-7.7); NEUTROPHILS % (AUTO) 45.8 % (42-75); PLATELET COUNT 248 X10'3 (140-440); RED BLOOD COUNT 3.86 X10'6 (4.20-5.60); RED CELL DISTRIBUTION WIDTH 27.7 % (11.5-14.5); WHITE BLOOD COUNT 5.4 X10'3 (4.5-11.0)
[2022-09-18 15:23] LABS: ALANINE AMINOTRANSFERASE 51 U/L (12-78); ALBUMIN 3.1 G/DL (3.4-5.0); ALKALINE PHOSPHATASE 199 IU/L (46-116); ANION GAP 11 (8-16); ASPARTATE AMINO TRANSFERASE 34 U/L (10-37); BILIRUBIN,TOTAL 0.5 MG/DL (0.1-1.0); BLOOD UREA NITROGEN 36 MG/DL (7-18); BUN/CREATININE RATIO 20.1 (10.0-20.0); CALCIUM 8.2 MG/DL (8.5-10.1); CHLORIDE 108 MMOL/L (99-107); CREATININE 1.79 MG/DL (0.40-0.90); GLUCOSE 91 MG/DL (70-104); POTASSIUM 3.6 MMOL/L (3.5-5.1); SODIUM 144 MMOL/L (135-145); TOTAL CARBON DIOXIDE 24.8 MMOL/L (24-32); TOTAL PROTEIN 6.3 G/DL (6.4-8.2); eGFR 28 ML/MIN
[2022-09-18 16:06] LABS: ANISOCYTOSIS 3+; PLATELET ESTIMATE NORMAL
[2022-09-18 16:07] LABS: HYPOCHROMASIA 2+
[2022-09-18 16:08] LABS: POLYCHROMASIA FEW; STOMATOCYTES 1+
[2022-09-18] MEDS ORDERED: morphine 4 MG/ML inj SYRINge IV ONE (17:00)
[2022-09-18] MEDS ORDERED: diltiazem 5mg/ml 5ml inj. IV ONE (17:10)
[2022-09-18] MEDS ORDERED: regadenoson 0.4mg/5ml syringe IV PRN (19:45)
[2022-09-18] MEDS ORDERED: potassium Cl 20 mEq SR tablet PO PRN ×2 (19:45)
[2022-09-18] MEDS ORDERED: ondansetron/PF 4mg/2ml inj IV PRN (19:45)
[2022-09-18] MEDS ORDERED: magnesium Cl slow-release 64mg tablet PO PRN (19:45)
[2022-09-18] MEDS ORDERED: HYDROcodone/acetaminophen 5mg/325mg tablet PO PRN (19:45)
[2022-09-18] MEDS ORDERED: morphine 2 MG/ML inj. syringe IV PRN (19:45)
[2022-09-18] MEDS ORDERED: magnesium 4gm in 100ml NS 100 ML IV PRN (19:45)
[2022-09-18] MEDS ORDERED: nitroGLYCERIN 0.4mg SUBLingual tab SL PRN (19:45)
[2022-09-18] MEDS ORDERED: aminophylline 250mg/10ml inj. IV PRN (19:45)
[2022-09-18] MEDS ORDERED: metoprolol tartrate 1mg/ml inj IV PRN (19:45)
[2022-09-18] MEDS ORDERED: potassium Cl 40MEQ/1/2NS 520ml 520 ML IV PRN (19:45)
[2022-09-18] MEDS ORDERED: acetaminophen 325mg tablet PO PRN ×2 (19:45)
[2022-09-18] MEDS ORDERED: magnesium 2GM in 50ml NS 50 ML IV PRN (19:45)
[2022-09-18] MEDS ORDERED: diltiazem-NS 100mg/100ml 100 ML IV SCH (20:00)
[2022-09-18] MEDS ORDERED: carVEDilol 12.5mg tablet PO SCH (20:00)
[2022-09-18] MEDS: normal saline 1000ml 1,000 ML IV SCH (20:28)
--- NOTE | 2022-09-18 20:44 | NUR ---
Patient given sandwich.
--- NOTE | 2022-09-18 22:05 | NUR ---
Dr. khan paged regarding patient BP.
--- NOTE | 2022-09-18 22:09 | NUR ---
Per Dr. Estrada - turn Cardizem down to 2.5mg/hr from 5mg/hr. If BP remains low, hold Cardizem.
[2022-09-18] MEDS ORDERED: EMPA10TA PO (23:25)
--- NOTE | 2022-09-18 23:44 | NUR ---
Patient placed on hospital bed and given warm blankets. Call light within reach as well as bedside table.
[2022-09-19] VITALS (9 sets, daily range): BP systolic 98–122; BP diastolic 56–79
[2022-09-19 03:10] LABS: ALANINE AMINOTRANSFERASE 54 U/L (12-78); ALBUMIN 2.7 G/DL (3.4-5.0); ALKALINE PHOSPHATASE 215 IU/L (46-116); ANION GAP 10 (8-16); ASPARTATE AMINO TRANSFERASE 47 U/L (10-37); BILIRUBIN,TOTAL 0.5 MG/DL (0.1-1.0); BLOOD UREA NITROGEN 38 MG/DL (7-18); BUN/CREATININE RATIO 24.2 (10.0-20.0); CALCIUM 8.2 MG/DL (8.5-10.1); CHLORIDE 108 MMOL/L (99-107); CREATININE 1.57 MG/DL (0.40-0.90); GLUCOSE 84 MG/DL (70-104); POTASSIUM 3.5 MMOL/L (3.5-5.1); SODIUM 141 MMOL/L (135-145); TOTAL CARBON DIOXIDE 22.7 MMOL/L (24-32); TOTAL PROTEIN 5.4 G/DL (6.4-8.2); eGFR 33 ML/MIN
[2022-09-19 03:19] LABS: BASOPHILS # (AUTO) 0.1 X10'3 (0-0.2); BASOPHILS % (AUTO) 1.6 % (0-1); EOSINOPHILS # (AUTO) 0.2 X10'3 (0-0.9); EOSINOPHILS % (AUTO) 4.7 % (0-6); HEMATOCRIT 31.4 % (35.0-45.0); HEMOGLOBIN 9.9 g/dl (12.0-16.0); LYMPHOCYTES # (AUTO) 2.1 X10'3 (1.1-4.8); LYMPHOCYTES % (AUTO) 43.6 % (21-51); MEAN CORPUSCULAR HEMOGLOBIN 28.4 PG (27.0-31.0); MEAN CORPUSCULAR HGB CONC 31.6 g/dL (33.0-36.5); MEAN CORPUSCULAR VOLUME 90.1 FL (78-98); MEAN PLATELET VOLUME 7.7 FL (7.4-10.4); MONOCYTES # (AUTO) 0.5 X10'3 (0-0.9); MONOCYTES % (AUTO) 9.8 % (2-12); NEUTROPHILS % (AUTO) 40.3 % (42-75); PLATELET COUNT 212 X10'3 (140-440); RED BLOOD COUNT 3.49 X10'6 (4.20-5.60); RED CELL DISTRIBUTION WIDTH 26.9 % (11.5-14.5); WHITE BLOOD COUNT 4.9 X10'3 (4.5-11.0)
--- NOTE | 2022-09-19 05:41 | NUR ---
Patient up to bedside commode, tolerated well with no assistance needed.
[2022-09-19] MEDS ORDERED: ondansetron 4mg rapidly disintigrating tab PO PRN (06:25)
[2022-09-19] MEDS ORDERED: albuterol 2.5 MG/3 ML nebule NEB PRN (06:25)
[2022-09-19] MEDS ORDERED: ipratropium 0.5 MG/2.5ML nebule IH PRN (06:25)
[2022-09-19] MEDS ORDERED: ipratropium/albuterol 3ml nebule NEB PRN (06:45)
[2022-09-19] MEDS ORDERED: warfarin 5mg tablet PO SCH (08:00)
[2022-09-19] MEDS ORDERED: enoxaparin 40mg/0.4ml syringe SUBCUT SCH (08:00)
[2022-09-19] MEDS ORDERED: lisinopril 10 MG tablet PO SCH (08:00)
[2022-09-19] MEDS ORDERED: sotalol HCl 40mg (1/2 tablet) PO SCH (08:00)
--- NOTE | 2022-09-19 08:15 | NUR ---
meds held for stress test. will admin when pt returns from stress test
--- NOTE | 2022-09-19 10:00 | NUR ---
pt to stress test
[2022-09-19] MEDS: HYDROcodone/acetaminophen 10/325mg tab PO PRN ×2 (12:22→19:39)
[2022-09-19] MEDS: iron polysaccharide complex 150mg capsule PO SCH ×2 (12:23→23:01)
[2022-09-19] MEDS: carVEDilol 12.5mg tablet PO SCH ×2 (12:23→23:01)
[2022-09-19] MEDS: EMPAGLIFLOZIN 10 MG TABLET PO SCH (12:23)
[2022-09-19] MEDS: busPIRone 5mg tablet PO SCH ×3 (12:23→23:00)
[2022-09-19] MEDS: levoTHYROXINE 25mcg tablet PO SCH (12:23)
[2022-09-19] MEDS: furosemide 20MG tablet PO SCH (12:23)
[2022-09-19] MEDS: pantoprazole 40mg Tablet.DR PO SCH ×2 (12:24→23:01)
--- NOTE | 2022-09-19 13:52 | NUR ---
Dr. Vann aware of the HR
[2022-09-19] MEDS: morphine 2 MG/ML inj. syringe IV PRN (14:25)
--- NOTE | 2022-09-19 17:54 | NUR ---
DR. Vann aware of heart rate. no orders to re-start the drip
--- NOTE | 2022-09-19 18:27 | NUR ---
report given to ethan welch
[2022-09-19] MEDS ORDERED: HYDROcodone/acetaminophen 10/325mg tab PO PRN (19:10)
[2022-09-19] MEDS ORDERED: warfarin 5mg tablet PO ONE (21:00)
[2022-09-19] MEDS: hydrOXYzine 25 MG tablet PO SCH (22:59)
[2022-09-19] MEDS: gabapentin 400mg capsule PO SCH (23:00)
[2022-09-19] MEDS: mirtazapine 15mg tablet PO SCH (23:00)
[2022-09-20] VITALS (7 sets, daily range): BP systolic 78–92; BP diastolic 48–58
[2022-09-20 02:54] LABS: BASOPHILS # (AUTO) 0.1 X10'3 (0-0.2); BASOPHILS % (AUTO) 1.3 % (0-1); EOSINOPHILS # (AUTO) 0.2 X10'3 (0-0.9); EOSINOPHILS % (AUTO) 3.9 % (0-6); HEMATOCRIT 29.7 % (35.0-45.0); HEMOGLOBIN 9.5 g/dl (12.0-16.0); LYMPHOCYTES # (AUTO) 2.4 X10'3 (1.1-4.8); LYMPHOCYTES % (AUTO) 43.9 % (21-51); MEAN CORPUSCULAR HGB CONC 31.9 g/dL (33.0-36.5); MEAN PLATELET VOLUME 7.8 FL (7.4-10.4); MONOCYTES # (AUTO) 0.4 X10'3 (0-0.9); MONOCYTES % (AUTO) 7.4 % (2-12); NEUTROPHILS # (AUTO) 2.3 X10'3 (1.8-7.7); NEUTROPHILS % (AUTO) 43.5 % (42-75); PLATELET COUNT 222 X10'3 (140-440); RED BLOOD COUNT 3.26 X10'6 (4.20-5.60); RED CELL DISTRIBUTION WIDTH 26.7 % (11.5-14.5); WHITE BLOOD COUNT 5.4 X10'3 (4.5-11.0)
[2022-09-20 03:05] LABS: ALANINE AMINOTRANSFERASE 38 U/L (12-78); ALBUMIN 2.6 G/DL (3.4-5.0); ALKALINE PHOSPHATASE 180 IU/L (46-116); ANION GAP 8 (8-16); ASPARTATE AMINO TRANSFERASE 31 U/L (10-37); BILIRUBIN,TOTAL 0.5 MG/DL (0.1-1.0); BLOOD UREA NITROGEN 34 MG/DL (7-18); BUN/CREATININE RATIO 23.1 (10.0-20.0); CALCIUM 8.2 MG/DL (8.5-10.1); CHLORIDE 108 MMOL/L (99-107); CREATININE 1.47 MG/DL (0.40-0.90); GLUCOSE 92 MG/DL (70-104); POTASSIUM 3.7 MMOL/L (3.5-5.1); SODIUM 139 MMOL/L (135-145); TOTAL CARBON DIOXIDE 23.5 MMOL/L (24-32); TOTAL PROTEIN 5.1 G/DL (6.4-8.2); eGFR 36 ML/MIN
[2022-09-20 04:15] LABS: PLATELET ESTIMATE NORMAL
[2022-09-20 04:16] LABS: ANISOCYTOSIS 3+
[2022-09-20] MEDS: HYDROcodone/acetaminophen 10/325mg tab PO PRN (06:10)
--- NOTE | 2022-09-20 07:34 | NUR ---
tried to call report, RN was busy will call back
[2022-09-20] MEDS: EMPAGLIFLOZIN 10 MG TABLET PO SCH (07:50)
[2022-09-20] MEDS: iron polysaccharide complex 150mg capsule PO SCH ×2 (07:50→20:18)
[2022-09-20] MEDS: carVEDilol 12.5mg tablet PO SCH ×2 (08:00→20:00)
[2022-09-20] MEDS: furosemide 20MG tablet PO SCH (08:00)
[2022-09-20] MEDS: buPROPion SR 150mg tablet PO SCH ×3 (09:40→20:12)
[2022-09-20] MEDS: levoTHYROXINE 25mcg tablet PO SCH (09:40)
[2022-09-20] MEDS: gabapentin 400mg capsule PO SCH ×2 (09:40→13:50)
[2022-09-20] MEDS: pantoprazole 40mg Tablet.DR PO SCH ×2 (09:41→20:14)
[2022-09-20] MEDS: duloxetine 30mg CAPSULE.DR PO SCH (09:41)
[2022-09-20] MEDS: busPIRone 5mg tablet PO SCH ×3 (09:42→20:14)
--- NOTE | 2022-09-20 11:05 | NUR ---
PT C/O R CALF PAIN. EQUAL, BILATERAL PEDAL PULSES. MD NOTIFIED.
--- NOTE | 2022-09-20 15:45 | NUR ---
PT C/O 10/28 BACK PAIN. PT'S BP IS 82/52, PT REQUEST NARCOTIC PAIN MEDS. HELD D/T LOW BP, OFFERED TYLENOL, PT REFUSED.
--- NOTE | 2022-09-20 18:29 | NUR ---
Problems reprioritized. Patient report given, questions answered & plan of care reviewed with RICHARD CASTELLANOS.
[2022-09-20] MEDS: normal saline 1000ml 1,000 ML IV SCH (19:45)
[2022-09-20] MEDS: hydrOXYzine 25 MG tablet PO SCH (20:12)
[2022-09-20] MEDS: mirtazapine 15mg tablet PO SCH (20:13)
[2022-09-20] MEDS: gabapentin 300mg capsule PO SCH (20:14)
[2022-09-20] MEDS ORDERED: warfarin 5mg tablet PO ONE (21:00)
[2022-09-20] MEDS ORDERED: normal saline 500ml IV soln 500 ML IV ONE (21:10)
[2022-09-21] VITALS (7 sets, daily range): BP systolic 87–124; BP diastolic 58–85
[2022-09-21] MEDS: normal saline 1000ml 1,000 ML IV SCH ×2 (01:42→22:58)
--- NOTE | 2022-09-21 06:17 | NUR ---
Problems reprioritized. Patient report given, questions answered & plan of care reviewed with Tita RAMOS.
--- NOTE | 2022-09-21 07:01 | NUR ---
Patient in room PCU 3015. I have received report from RICHARD CASTELLANOS, and had the opportunity to ask questions and assume patient care.
[2022-09-21 07:22] LABS: BASOPHILS # (AUTO) 0.1 X10'3 (0-0.2); BASOPHILS % (AUTO) 1.2 % (0-1); EOSINOPHILS # (AUTO) 0.3 X10'3 (0-0.9); EOSINOPHILS % (AUTO) 5.3 % (0-6); HEMATOCRIT 29.3 % (35.0-45.0); HEMOGLOBIN 9.2 g/dl (12.0-16.0); LYMPHOCYTES # (AUTO) 2.3 X10'3 (1.1-4.8); LYMPHOCYTES % (AUTO) 40.9 % (21-51); MEAN CORPUSCULAR HEMOGLOBIN 29.1 PG (27.0-31.0); MEAN CORPUSCULAR HGB CONC 31.5 g/dL (33.0-36.5); MEAN CORPUSCULAR VOLUME 92.2 FL (78-98); MEAN PLATELET VOLUME 7.9 FL (7.4-10.4); MONOCYTES # (AUTO) 0.5 X10'3 (0-0.9); MONOCYTES % (AUTO) 9.8 % (2-12); NEUTROPHILS # (AUTO) 2.4 X10'3 (1.8-7.7); NEUTROPHILS % (AUTO) 42.8 % (42-75); PLATELET COUNT 245 X10'3 (140-440); RED BLOOD COUNT 3.18 X10'6 (4.20-5.60); RED CELL DISTRIBUTION WIDTH 26.9 % (11.5-14.5); WHITE BLOOD COUNT 5.6 X10'3 (4.5-11.0)
[2022-09-21 07:58] LABS: ALANINE AMINOTRANSFERASE 37 U/L (12-78); ALBUMIN 2.5 G/DL (3.4-5.0); ALKALINE PHOSPHATASE 157 IU/L (46-116); ANION GAP 9 (8-16); ASPARTATE AMINO TRANSFERASE 30 U/L (10-37); BILIRUBIN,TOTAL 0.4 MG/DL (0.1-1.0); BLOOD UREA NITROGEN 31 MG/DL (7-18); BUN/CREATININE RATIO 20.9 (10.0-20.0); CALCIUM 7.9 MG/DL (8.5-10.1); CHLORIDE 110 MMOL/L (99-107); CREATININE 1.48 MG/DL (0.40-0.90); GLUCOSE 80 MG/DL (70-104); SODIUM 140 MMOL/L (135-145); TOTAL CARBON DIOXIDE 21.1 MMOL/L (24-32); eGFR 35 ML/MIN
[2022-09-21] MEDS: EMPAGLIFLOZIN 10 MG TABLET PO SCH (08:34)
[2022-09-21] MEDS: busPIRone 5mg tablet PO SCH ×3 (08:34→22:40)
[2022-09-21] MEDS: gabapentin 300mg capsule PO SCH ×2 (08:34→22:34)
[2022-09-21] MEDS: pantoprazole 40mg Tablet.DR PO SCH ×2 (08:34→20:00)
[2022-09-21] MEDS: iron polysaccharide complex 150mg capsule PO SCH ×2 (08:35→20:00)
[2022-09-21] MEDS: carVEDilol 12.5mg tablet PO SCH ×2 (08:35→20:00)
[2022-09-21] MEDS: duloxetine 30mg CAPSULE.DR PO SCH (08:35)
[2022-09-21] MEDS: levoTHYROXINE 25mcg tablet PO SCH (08:36)
[2022-09-21] MEDS: buPROPion SR 150mg tablet PO SCH ×3 (08:38→22:39)
[2022-09-21] MEDS: HYDROcodone/acetaminophen 10/325mg tab PO PRN ×3 (10:34→22:36)
--- NOTE | 2022-09-21 19:17 | NUR ---
Problems reprioritized. Patient report given, questions answered & plan of care reviewed with ASHLEY GURROLA. LEONID ALSTON GIVEN TO [facility] NURSE FOR APPLICATION. NURSE ADVISED TO BE MINDFUL OF ADMINISTERING CARDIAC AND PAIN MEDS D/T LOW BP.
[2022-09-21] MEDS ORDERED: warfarin 5mg tablet PO ONE (21:00)
--- NOTE | 2022-09-21 22:01 | NUR ---
Patient in room PCU 3015. I have received report from Tita RAMOS and had the opportunity to ask questions and assume patient care.
[2022-09-21] MEDS: hydrOXYzine 25 MG tablet PO SCH (22:38)
[2022-09-21] MEDS: mirtazapine 15mg tablet PO SCH (22:40)
[2022-09-22 02:00] VITALS: BP 96/62
[2022-09-22] MEDS: HYDROcodone/acetaminophen 10/325mg tab PO PRN ×3 (05:15→18:38)
[2022-09-22 06:00] VITALS: BP 78/56
--- NOTE | 2022-09-22 06:30 | NUR ---
Patient in room PCU 3015. I have received report from Adrianna RAMIREZ and had the opportunity to ask questions and assume patient care.
--- NOTE | 2022-09-22 06:48 | NUR ---
Pt. Requested Synthroid time be Changed R/t Medication needing to be taken on an empty stomach, Pharmacy Changed time to 0700, Pt. Notified and in agreement.
--- NOTE | 2022-09-22 06:50 | NUR ---
Problems reprioritized. Patient report given, questions answered & plan of care reviewed with Brooklyn RAMIREZ.
[2022-09-22] MEDS: levoTHYROXINE 25mcg tablet PO SCH (07:15)
[2022-09-22 07:51] LABS: BASOPHILS # (AUTO) 0.1 X10'3 (0-0.2); EOSINOPHILS # (AUTO) 0.3 X10'3 (0-0.9); EOSINOPHILS % (AUTO) 6.1 % (0-6); HEMATOCRIT 29.7 % (35.0-45.0); HEMOGLOBIN 9.1 g/dl (12.0-16.0); LYMPHOCYTES # (AUTO) 2.3 X10'3 (1.1-4.8); LYMPHOCYTES % (AUTO) 39.8 % (21-51); MEAN CORPUSCULAR HEMOGLOBIN 28.6 PG (27.0-31.0); MEAN CORPUSCULAR HGB CONC 30.7 g/dL (33.0-36.5); MEAN CORPUSCULAR VOLUME 93.4 FL (78-98); MEAN PLATELET VOLUME 8.2 FL (7.4-10.4); MONOCYTES # (AUTO) 0.6 X10'3 (0-0.9); MONOCYTES % (AUTO) 10.6 % (2-12); NEUTROPHILS # (AUTO) 2.4 X10'3 (1.8-7.7); NEUTROPHILS % (AUTO) 42.5 % (42-75); PLATELET COUNT 250 X10'3 (140-440); RED BLOOD COUNT 3.18 X10'6 (4.20-5.60); WHITE BLOOD COUNT 5.7 X10'3 (4.5-11.0)
[2022-09-22] MEDS: carVEDilol 12.5mg tablet PO SCH (08:00)
[2022-09-22 08:02] LABS: ALANINE AMINOTRANSFERASE 35 U/L (12-78); ALBUMIN 2.7 G/DL (3.4-5.0); ANION GAP 9 (8-16); ASPARTATE AMINO TRANSFERASE 31 U/L (10-37); BILIRUBIN,TOTAL 0.3 MG/DL (0.1-1.0); BLOOD UREA NITROGEN 31 MG/DL (7-18); BUN/CREATININE RATIO 23.1 (10.0-20.0); CHLORIDE 109 MMOL/L (99-107); CREATININE 1.34 MG/DL (0.40-0.90); GLUCOSE 80 MG/DL (70-104); POTASSIUM 4.3 MMOL/L (3.5-5.1); SODIUM 139 MMOL/L (135-145); TOTAL CARBON DIOXIDE 21.1 MMOL/L (24-32); TOTAL PROTEIN 5.3 G/DL (6.4-8.2); eGFR 40 ML/MIN
[2022-09-22 08:15] LABS: ALKALINE PHOSPHATASE 163 IU/L (46-116)
[2022-09-22] MEDS: busPIRone 5mg tablet PO SCH ×3 (08:39→20:35)
[2022-09-22] MEDS: EMPAGLIFLOZIN 10 MG TABLET PO SCH (08:40)
[2022-09-22] MEDS: iron polysaccharide complex 150mg capsule PO SCH ×2 (08:40→20:38)
[2022-09-22] MEDS: gabapentin 300mg capsule PO SCH ×2 (08:40→20:36)
[2022-09-22] MEDS: duloxetine 30mg CAPSULE.DR PO SCH (08:40)
[2022-09-22] MEDS: pantoprazole 40mg Tablet.DR PO SCH ×2 (08:42→20:36)
[2022-09-22] MEDS: buPROPion SR 150mg tablet PO SCH ×3 (08:42→20:36)
[2022-09-22 10:00] VITALS: BP 117/73
[2022-09-22] MEDS: normal saline 1000ml 1,000 ML IV SCH ×3 (10:00→19:32)
[2022-09-22 15:00] VITALS: BP 143/73
[2022-09-22 18:00] VITALS: BP 135/88
[2022-09-22] MEDS ORDERED: digoxin 250mcg/ml 2ml ampule IV ONE (18:18)
--- NOTE | 2022-09-22 20:30 | NUR ---
NURSE ASSESSOR documentation: I have reviewed and agree with all interventions, assessments performed and documented by ZOHAIB SAPP LVN .
[2022-09-22] MEDS: hydrOXYzine 25 MG tablet PO SCH (20:33)
[2022-09-22] MEDS: mirtazapine 15mg tablet PO SCH (20:37)
[2022-09-22] MEDS: carvedilol 6.25mg tablet PO SCH (20:38)
[2022-09-22] MEDS ORDERED: warfarin 3mg tablet PO ONE (21:00)
[2022-09-22 22:00] VITALS: BP 107/62
[2022-09-23] VITALS (13 sets, daily range): BP systolic 101–148; BP diastolic 63–87
[2022-09-23] MEDS: HYDROcodone/acetaminophen 10/325mg tab PO PRN ×4 (00:43→19:51)
[2022-09-23] MEDS: digoxin 250mcg/ml 2ml ampule IV SCH ×2 (02:15→14:00)
[2022-09-23] MEDS: normal saline 1000ml 1,000 ML IV SCH ×2 (04:45→08:51)
--- NOTE | 2022-09-23 06:30 | NUR ---
Patient in room PCU 3015. I have received report from ASHLEY Barahona and had the opportunity to ask questions and assume patient care.
--- NOTE | 2022-09-23 06:34 | NUR ---
Problems reprioritized. Patient report given, questions answered & plan of care reviewed with Ina RAMOS.
[2022-09-23 06:51] LABS: BASOPHILS # (AUTO) 0.1 X10'3 (0-0.2); BASOPHILS % (AUTO) 1.3 % (0-1); EOSINOPHILS # (AUTO) 0.4 X10'3 (0-0.9); HEMOGLOBIN 8.5 g/dl (12.0-16.0); LYMPHOCYTES # (AUTO) 2.4 X10'3 (1.1-4.8); LYMPHOCYTES % (AUTO) 37.4 % (21-51); MEAN CORPUSCULAR HEMOGLOBIN 29.7 PG (27.0-31.0); MEAN CORPUSCULAR HGB CONC 31.4 g/dL (33.0-36.5); MEAN CORPUSCULAR VOLUME 94.4 FL (78-98); MEAN PLATELET VOLUME 8.2 FL (7.4-10.4); MONOCYTES # (AUTO) 0.8 X10'3 (0-0.9); MONOCYTES % (AUTO) 12.3 % (2-12); NEUTROPHILS # (AUTO) 2.7 X10'3 (1.8-7.7); PLATELET COUNT 250 X10'3 (140-440); RED BLOOD COUNT 2.86 X10'6 (4.20-5.60); RED CELL DISTRIBUTION WIDTH 26.6 % (11.5-14.5); WHITE BLOOD COUNT 6.3 X10'3 (4.5-11.0)
[2022-09-23 07:00] LABS: ALANINE AMINOTRANSFERASE 28 U/L (12-78); ALBUMIN 2.5 G/DL (3.4-5.0); ALKALINE PHOSPHATASE 157 IU/L (46-116); ANION GAP 11 (8-16); ASPARTATE AMINO TRANSFERASE 29 U/L (10-37); BILIRUBIN,TOTAL 0.4 MG/DL (0.1-1.0); BLOOD UREA NITROGEN 27 MG/DL (7-18); BUN/CREATININE RATIO 23.9 (10.0-20.0); CALCIUM 7.9 MG/DL (8.5-10.1); CHLORIDE 112 MMOL/L (99-107); CREATININE 1.13 MG/DL (0.40-0.90); GLUCOSE 82 MG/DL (70-104); POTASSIUM 4.3 MMOL/L (3.5-5.1); SODIUM 138 MMOL/L (135-145); TOTAL CARBON DIOXIDE 15.1 MMOL/L (24-32); TOTAL PROTEIN 5.1 G/DL (6.4-8.2); eGFR 48 ML/MIN
[2022-09-23] MEDS: levoTHYROXINE 25mcg tablet PO SCH (07:14)
[2022-09-23 08:00] LABS: PLATELET ESTIMATE NORMAL
[2022-09-23] MEDS: buPROPion SR 150mg tablet PO SCH ×3 (08:00→22:54)
[2022-09-23 08:01] LABS: ANISOCYTOSIS 3+; MICROCYTOSIS 2+; TEAR DROP CELLS FEW
[2022-09-23 08:02] LABS: LARGE PLATELETS FEW
[2022-09-23] MEDS: duloxetine 30mg CAPSULE.DR PO SCH (08:50)
[2022-09-23] MEDS: pantoprazole 40mg Tablet.DR PO SCH ×2 (08:51→22:54)
[2022-09-23] MEDS: gabapentin 300mg capsule PO SCH ×3 (08:51→22:51)
[2022-09-23] MEDS: carvedilol 6.25mg tablet PO SCH ×2 (08:51→22:56)
[2022-09-23] MEDS: busPIRone 5mg tablet PO SCH ×3 (08:52→22:52)
[2022-09-23] MEDS: iron polysaccharide complex 150mg capsule PO SCH ×2 (08:53→22:53)
[2022-09-23] MEDS: EMPAGLIFLOZIN 10 MG TABLET PO SCH (08:53)
--- NOTE | 2022-09-23 11:06 | NUR ---
Initial: Pt admit DX severe valvular disease of mitral/tricuspid, afib w/ RVR, hypotension, BLE neuropathic pain, HFpEF, hypothyroidism, and depression per EMR. PO 100% avg heart healthy diet meeting estimated needs. LBM 09/22 per EMR. No nutrition interventions at this time. Will continue to follow. Rec: 1. continue heart healthy diet per MD 2. bowel care per rx 3. scaled wt this admit; subsequent weekly wt Addendum: 09/23/22 at [address] Amended: Links added.
[2022-09-23] MEDS ORDERED: HYDROcodone/acetaminophen 5mg/325mg tablet PO PRN (13:10)
[2022-09-23] MEDS ORDERED: fentaNYL/PF 50MCG/1 ML 2ML syringe ONE (16:12)
[2022-09-23] MEDS ORDERED: midazolam 1 mg/ML 2ml injection ONE (16:12)
[2022-09-23] MEDS ORDERED: iohexol 350 MG/ML 50ML vial IV ONE (16:12)
[2022-09-23] MEDS ORDERED: LIDOcaine 1% (10mg/ml)w/preservative inj. 20ml MDV ONE (16:12)
[2022-09-23] MEDS ORDERED: iohexol 350MG/ML 100ml bottle IV ONE (16:12)
--- NOTE | 2022-09-23 20:30 | NUR ---
simulation educator documentation: I have reviewed and agree with all interventions, assessments performed and documented by Bing Gonzalez LVN .
[2022-09-23] MEDS ORDERED: warfarin 5mg tablet PO ONE (21:00)
[2022-09-23] MEDS ORDERED: enoxaparin 60mg/0.6ml syringe SUBCUT ONE (21:00)
[2022-09-23] MEDS: digoxin 250mcg (0.25mg) tablet PO SCH (21:40)
--- NOTE | 2022-09-23 21:42 | NUR ---
HOLD DIGOXIN AM DOSE 250MCG X1 DOSE THEN RESUME. CRITICAL LAB LEVEL DIGOXIN 2.0
[2022-09-23] MEDS: hydrOXYzine 25 MG tablet PO SCH (22:52)
[2022-09-23] MEDS: morphine 2 MG/ML inj. syringe IV PRN (22:53)
[2022-09-23] MEDS: mirtazapine 15mg tablet PO SCH (22:55)
[2022-09-24] MEDS: HYDROcodone/acetaminophen 10/325mg tab PO PRN ×3 (02:14→20:46)
[2022-09-24] MEDS: normal saline 1000ml 1,000 ML IV SCH ×2 (04:51→19:52)
[2022-09-24 06:00] VITALS: BP 99/59
[2022-09-24] MEDS: morphine 2 MG/ML inj. syringe IV PRN ×3 (06:08→23:10)
--- NOTE | 2022-09-24 06:30 | NUR ---
Patient in room PCU 3015. I have received report from Rafaela RAMIREZ and had the opportunity to ask questions and assume patient care.
--- NOTE | 2022-09-24 06:32 | NUR ---
Problems reprioritized. Patient report given, questions answered & plan of care reviewed with Brooklyn RAMOS. Addendum: 09/24/22 at 0634 by Bing Jones LVN, LVN Brooklyn RAMIREZ
[2022-09-24 06:48] LABS: BASOPHILS % (AUTO) 0.8 % (0-1); EOSINOPHILS # (AUTO) 0.4 X10'3 (0-0.9); EOSINOPHILS % (AUTO) 6.3 % (0-6); HEMOGLOBIN 8.3 g/dl (12.0-16.0); LYMPHOCYTES # (AUTO) 1.8 X10'3 (1.1-4.8); LYMPHOCYTES % (AUTO) 30.2 % (21-51); MEAN CORPUSCULAR HEMOGLOBIN 29.4 PG (27.0-31.0); MEAN CORPUSCULAR HGB CONC 30.9 g/dL (33.0-36.5); MEAN CORPUSCULAR VOLUME 95.4 FL (78-98); MEAN PLATELET VOLUME 8.2 FL (7.4-10.4); MONOCYTES # (AUTO) 0.6 X10'3 (0-0.9); MONOCYTES % (AUTO) 10.7 % (2-12); NEUTROPHILS # (AUTO) 3.1 X10'3 (1.8-7.7); PLATELET COUNT 246 X10'3 (140-440); RED BLOOD COUNT 2.83 X10'6 (4.20-5.60); WHITE BLOOD COUNT 5.9 X10'3 (4.5-11.0)
[2022-09-24 07:07] LABS: ALANINE AMINOTRANSFERASE 32 U/L (12-78); ALBUMIN 2.5 G/DL (3.4-5.0); ALBUMIN/GLOBULIN RATIO 0.9 (1.1-1.5); ALKALINE PHOSPHATASE 173 IU/L (46-116); ANION GAP 9 (8-16); ASPARTATE AMINO TRANSFERASE 28 U/L (10-37); BILIRUBIN,TOTAL 0.4 MG/DL (0.1-1.0); BLOOD UREA NITROGEN 25 MG/DL (7-18); CALCIUM 7.9 MG/DL (8.5-10.1); CHLORIDE 112 MMOL/L (99-107); CREATININE 1.39 MG/DL (0.40-0.90); GLUCOSE 81 MG/DL (70-104); POTASSIUM 4.7 MMOL/L (3.5-5.1); SODIUM 141 MMOL/L (135-145); TOTAL CARBON DIOXIDE 19.6 MMOL/L (24-32); TOTAL PROTEIN 5.2 G/DL (6.4-8.2); eGFR 38 ML/MIN
[2022-09-24] MEDS: levoTHYROXINE 25mcg tablet PO SCH (07:34)
[2022-09-24] MEDS ORDERED: NORMAL SALINE IV ONE (07:50)
[2022-09-24] MEDS ORDERED: PHYTONADIONE IV ONE (07:50)
[2022-09-24] MEDS: carvedilol 6.25mg tablet PO SCH ×2 (08:00→20:46)
[2022-09-24] MEDS ORDERED: enoxaparin 60mg/0.6ml syringe SUBCUT SCH (08:00)
[2022-09-24] MEDS ORDERED: digoxin 250mcg/ml 2ml ampule IV SCH (08:00)
[2022-09-24] MEDS: gabapentin 300mg capsule PO SCH ×3 (08:58→20:45)
[2022-09-24] MEDS: buPROPion SR 150mg tablet PO SCH ×4 (08:59→20:45)
[2022-09-24] MEDS: duloxetine 30mg CAPSULE.DR PO SCH (09:01)
[2022-09-24] MEDS: EMPAGLIFLOZIN 10 MG TABLET PO SCH (09:01)
[2022-09-24] MEDS: iron polysaccharide complex 150mg capsule PO SCH ×2 (09:01→20:45)
[2022-09-24] MEDS: busPIRone 5mg tablet PO SCH ×3 (09:02→20:46)
[2022-09-24] MEDS: pantoprazole 40mg Tablet.DR PO SCH ×2 (09:02→20:45)
[2022-09-24 11:00] VITALS: BP 97/65
[2022-09-24] MEDS ORDERED: phytonadione 10 MG/1 ML amp PO ONE (12:55)
[2022-09-24 15:00] VITALS: BP 110/64
[2022-09-24 18:00] VITALS: BP 110/64
--- NOTE | 2022-09-24 18:15 | NUR ---
Problems reprioritized. Patient report given, questions answered & plan of care reviewed with Swetha SERGING MACHINE OPERATOR.
--- NOTE | 2022-09-24 19:04 | NUR ---
Pt notified LN that she had taken taped gauze off of her LFA from previous blood draw and had an open area. LN observed a 5cm x 2.5cm open area to LFA. Area cleansed and no stick gauze applied with kerlix, noted on board, no tape.
--- NOTE | 2022-09-24 20:30 | NUR ---
COB SAWYER documentation: I have reviewed and agree with all interventions, assessments performed and documented by APRIL PANDYA LVN.
[2022-09-24] MEDS: hydrOXYzine 25 MG tablet PO SCH (20:45)
[2022-09-24] MEDS: mirtazapine 15mg tablet PO SCH (20:45)
[2022-09-24 22:00] VITALS: BP 97/63
[2022-09-25] MEDS: normal saline 1000ml 1,000 ML IV SCH ×3 (00:51→20:05)
[2022-09-25 02:00] VITALS: BP 100/65
[2022-09-25] MEDS: HYDROcodone/acetaminophen 10/325mg tab PO PRN ×4 (03:15→19:55)
[2022-09-25] MEDS: morphine 2 MG/ML inj. syringe IV PRN ×4 (04:50→23:18)
[2022-09-25 06:00] VITALS: BP 92/59
--- NOTE | 2022-09-25 06:37 | NUR ---
Patient in room PCU 3015. I have received report from Swetha RN and had the opportunity to ask questions and assume patient care.
[2022-09-25 06:39] LABS: BASOPHILS # (AUTO) 0.1 X10'3 (0-0.2); BASOPHILS % (AUTO) 1.2 % (0-1); EOSINOPHILS # (AUTO) 0.3 X10'3 (0-0.9); EOSINOPHILS % (AUTO) 5.7 % (0-6); HEMATOCRIT 26.8 % (35.0-45.0); HEMOGLOBIN 8.1 g/dl (12.0-16.0); LYMPHOCYTES # (AUTO) 1.7 X10'3 (1.1-4.8); LYMPHOCYTES % (AUTO) 31.7 % (21-51); MEAN CORPUSCULAR HEMOGLOBIN 29.2 PG (27.0-31.0); MEAN CORPUSCULAR HGB CONC 30.2 g/dL (33.0-36.5); MEAN CORPUSCULAR VOLUME 96.6 FL (78-98); MONOCYTES # (AUTO) 0.7 X10'3 (0-0.9); MONOCYTES % (AUTO) 12.3 % (2-12); NEUTROPHILS # (AUTO) 2.7 X10'3 (1.8-7.7); NEUTROPHILS % (AUTO) 49.1 % (42-75); PLATELET COUNT 254 X10'3 (140-440); RED BLOOD COUNT 2.78 X10'6 (4.20-5.60); RED CELL DISTRIBUTION WIDTH 26.1 % (11.5-14.5); WHITE BLOOD COUNT 5.4 X10'3 (4.5-11.0)
[2022-09-25 06:58] LABS: ALANINE AMINOTRANSFERASE 27 U/L (12-78); ALBUMIN 2.3 G/DL (3.4-5.0); ALBUMIN/GLOBULIN RATIO 0.8 (1.1-1.5); ALKALINE PHOSPHATASE 173 IU/L (46-116); ANION GAP 9 (8-16); ASPARTATE AMINO TRANSFERASE 26 U/L (10-37); BILIRUBIN,TOTAL 0.5 MG/DL (0.1-1.0); BLOOD UREA NITROGEN 23 MG/DL (7-18); BUN/CREATININE RATIO 20.4 (10.0-20.0); CALCIUM 7.7 MG/DL (8.5-10.1); CHLORIDE 112 MMOL/L (99-107); CREATININE 1.13 MG/DL (0.40-0.90); GLUCOSE 80 MG/DL (70-104); POTASSIUM 4.5 MMOL/L (3.5-5.1); SODIUM 140 MMOL/L (135-145); TOTAL PROTEIN 5.1 G/DL (6.4-8.2); eGFR 48 ML/MIN
[2022-09-25 07:11] LABS: ANISOCYTOSIS 3+; PLATELET ESTIMATE NORMAL; POIKILOCYTOSIS FEW
[2022-09-25] MEDS: levoTHYROXINE 25mcg tablet PO SCH (07:23)
[2022-09-25] MEDS: digoxin 250mcg (0.25mg) tablet PO SCH (07:26)
[2022-09-25] MEDS: carvedilol 6.25mg tablet PO SCH ×3 (07:29→19:53)
[2022-09-25] MEDS: pantoprazole 40mg Tablet.DR PO SCH ×2 (07:30→19:54)
[2022-09-25] MEDS: iron polysaccharide complex 150mg capsule PO SCH ×2 (07:30→19:53)
[2022-09-25] MEDS: EMPAGLIFLOZIN 10 MG TABLET PO SCH (07:30)
[2022-09-25] MEDS: gabapentin 300mg capsule PO SCH ×2 (07:30→19:54)
[2022-09-25] MEDS: duloxetine 30mg CAPSULE.DR PO SCH (07:30)
[2022-09-25] MEDS: busPIRone 5mg tablet PO SCH ×3 (07:31→21:00)
[2022-09-25] MEDS ORDERED: LIDOcaine 2% (20 mg/ml) 5ml cardiac syringe ONE (08:00)
[2022-09-25] MEDS ORDERED: calcium chloride 100 MG/1 ML inj IV ONE (08:00)
[2022-09-25] MEDS ORDERED: sodium bicarbonate (8.4%) 1 mEq/ml syringe ONE (08:00)
[2022-09-25] MEDS ORDERED: methylPREDNISolone sod succ 1000mg vial ONE (08:00)
[2022-09-25] MEDS ORDERED: mannitol 12.5gm/50mL VIAL IV ONE (08:00)
[2022-09-25] MEDS ORDERED: NORepinephrine 1 mg/ml inj IV ONE (08:00)
[2022-09-25] MEDS ORDERED: MAGNESIUM SULFATE 4 MEQ/ML (5gm/10ml) injection ONE (08:00)
[2022-09-25] MEDS ORDERED: albumin (human) 25% 100 ML IV solution IV ONE (08:00)
[2022-09-25] MEDS ORDERED: potassium Cl 2 mEq/ml inj IV ONE (08:00)
[2022-09-25] MEDS ORDERED: heparin 10,000 units/1 ML INJ ONE (08:00)
[2022-09-25] MEDS ORDERED: aminocaproic acid 250 MG/1 ML inj. ONE (08:00)
[2022-09-25] MEDS ORDERED: MESSAGE TO NURSING PO ONE ×3 (09:10→10:00)
[2022-09-25] MEDS ORDERED: potassium Cl 20 mEq SR tablet PO PRN (09:10)
[2022-09-25] MEDS ORDERED: potassium CL 10mEq/100ml bag 100 ML IV PRN (09:10)
[2022-09-25] MEDS ORDERED: potassium Cl 40MEQ/270ML bag 250 ML IV PRN (09:10)
[2022-09-25] MEDS ORDERED: magnesium 4gm in 100ml NS 100 ML IV PRN (09:10)
[2022-09-25] MEDS ORDERED: magnesium 2GM in 50ml NS 50 ML IV PRN (09:10)
[2022-09-25] MEDS ORDERED: potassium Cl 20mEq/100mL bag 100 ML IV PRN (09:10)
[2022-09-25] MEDS ORDERED: potassium Cl 40MEQ/1/2NS 520ml 520 ML IV PRN (09:10)
[2022-09-25] MEDS: buPROPion SR 150mg tablet PO SCH ×2 (09:48→19:54)
[2022-09-25 10:09] LABS: APTT 34 SECONDS (22-32)
--- NOTE | 2022-09-25 10:25 | NUR ---
Digoxin held pending physicians input, elevated digoxin level resulted yesterday.
[2022-09-25 11:00] VITALS: BP 96/57
[2022-09-25 15:00] VITALS: BP 117/56
[2022-09-25 18:00] VITALS: BP 102/72
[2022-09-25] MEDS ORDERED: ringers solution, lacted 1,000 ML IV ONE (18:50)
[2022-09-25] MEDS: hydrOXYzine 25 MG tablet PO SCH (21:00)
[2022-09-25] MEDS: mirtazapine 15mg tablet PO SCH (21:00)
[2022-09-25 22:00] VITALS: BP 102/64
[2022-09-26] VITALS (20 sets, daily range): BP systolic 95–143; BP diastolic 55–78
[2022-09-26] MEDS: HYDROcodone/acetaminophen 10/325mg tab PO PRN ×2 (02:23→20:14)
[2022-09-26] MEDS ORDERED: MESSAGE TO NURSING PO ONE ×3 (03:00→07:18)
[2022-09-26 05:15] LABS: BASOPHILS # (AUTO) 0.1 X10'3 (0-0.2); BASOPHILS % (AUTO) 1.2 % (0-1); EOSINOPHILS # (AUTO) 0.4 X10'3 (0-0.9); EOSINOPHILS % (AUTO) 6.1 % (0-6); HEMATOCRIT 26.3 % (35.0-45.0); HEMOGLOBIN 8.1 g/dl (12.0-16.0); LYMPHOCYTES # (AUTO) 1.7 X10'3 (1.1-4.8); LYMPHOCYTES % (AUTO) 28.5 % (21-51); MEAN CORPUSCULAR HEMOGLOBIN 28.7 PG (27.0-31.0); MEAN CORPUSCULAR HGB CONC 30.7 g/dL (33.0-36.5); MEAN CORPUSCULAR VOLUME 93.7 FL (78-98); MEAN PLATELET VOLUME 7.9 FL (7.4-10.4); MONOCYTES # (AUTO) 0.7 X10'3 (0-0.9); MONOCYTES % (AUTO) 12.5 % (2-12); NEUTROPHILS # (AUTO) 3.1 X10'3 (1.8-7.7); NEUTROPHILS % (AUTO) 51.7 % (42-75); PLATELET COUNT 276 X10'3 (140-440); RED BLOOD COUNT 2.81 X10'6 (4.20-5.60); RED CELL DISTRIBUTION WIDTH 25.9 % (11.5-14.5); WHITE BLOOD COUNT 5.9 X10'3 (4.5-11.0)
[2022-09-26] MEDS: morphine 2 MG/ML inj. syringe IV PRN (05:32)
[2022-09-26 05:56] LABS: ALANINE AMINOTRANSFERASE 27 U/L (12-78); ALBUMIN 2.5 G/DL (3.4-5.0); ALBUMIN/GLOBULIN RATIO 0.9 (1.1-1.5); ALKALINE PHOSPHATASE 209 IU/L (46-116); ANION GAP 9 (8-16); ASPARTATE AMINO TRANSFERASE 23 U/L (10-37); BILIRUBIN,TOTAL 0.5 MG/DL (0.1-1.0); BLOOD UREA NITROGEN 20 MG/DL (7-18); BUN/CREATININE RATIO 19.2 (10.0-20.0); CALCIUM 7.7 MG/DL (8.5-10.1); CHLORIDE 111 MMOL/L (99-107); CREATININE 1.04 MG/DL (0.40-0.90); GLUCOSE 87 MG/DL (70-104); POTASSIUM 4.9 MMOL/L (3.5-5.1); SODIUM 138 MMOL/L (135-145); TOTAL CARBON DIOXIDE 18.2 MMOL/L (24-32); TOTAL PROTEIN 5.2 G/DL (6.4-8.2); eGFR 53 ML/MIN
[2022-09-26] MEDS ORDERED: famotidine 20mg tablet PO ONE (06:00)
[2022-09-26] MEDS ORDERED: LORazepam 2 mg/ml vial IV ONE (06:00)
--- NOTE | 2022-09-26 06:30 | NUR ---
RECEIVED REPORT FROM APRIL RAMIREZ AND ASSUMED CARE OF PATIENT. PT SCHEDULED IN [facility] FOR A VALVE REPLACEMENT THIS AM. PT DID NOT SHOWER PER PREOP PREP BUT WAS CLIPPED THIS AM AND WIPED DOWN WITH CLOTHS. WORKED THROUGH GETTING [facility] CHECKLIST COMPLETED BEFORE PT LEFT. WEIGHED PATIENT USING STANDING SCALE - THERE WAS A DIFFERENCE IN WHAT THE COMPUTER HAD FOR HER WEIGHT, SO I CHANGED IT AND CONTACTED PHARMACY AND [facility] TO GIVE UPDATED WEIGHT IT IS TIED TO MEDICATIONS SPECIFIC TO HER SURGERY TODAY. PT WITH SOME ANXIETY BUT STATES SHE WILL BE JUST FINE. ATIVAN, PEPCID, GABAPENTIN, AND COREG ADMINISTERED PRIOR TO SURGERY PER [facility] PROTOCOL. BEN RAMOS FROM [facility] AT BEDSIDE WITH 2 OTHER CVOR STAFF. THEY TRANSFERRED PATIENT TO [facility] VIA HER BED AT APPROXIMATELY 0750 THIS AM. PT ICU ROOM ASSIGNMENT IS 2045 SPOKE WITH SISTER WHO CAME IN TO SEE PATIENT AND DIRECTED HER TO THE SURGERY WAITING ROOM - [facility] STAFF ARE AWARE THE SISTER WILL BE WAITING. SPOKE WITH ART RAMOS IN ICU WHO WILL BE RECEIVING PATIENT TO CLARIFY SOME CHARTING. WILL TRANSFER PATIENTS BELONGINGS OVER TO ROOM 2045
[2022-09-26] MEDS ORDERED: epiNEPHrine 1 mg/ml inj ONE (06:34)
[2022-09-26] MEDS ORDERED: BUPIVAcaine/PF 2.5 mg/ml (0.25%) 30ml vial ONE (06:34)
[2022-09-26] MEDS ORDERED: ceFAZolin 1000mg inj ONE (06:35)
[2022-09-26] MEDS ORDERED: vancomycin 1,000mg inj ONE ×2 (06:35→11:21)
[2022-09-26] MEDS ORDERED: dextrose 50%-water 50ml dispensing syringe IV PRN ×2 (06:55→12:15)
[2022-09-26] MEDS ORDERED: Insulin Reg/NS 100units/100mL 100 ML IV SCH (06:55)
[2022-09-26] MEDS ORDERED: insulin glargine (Lantus) pen - multi-dose SQ PRN ×2 (06:55→12:15)
[2022-09-26] MEDS: levoTHYROXINE 25mcg tablet PO SCH (07:00)
[2022-09-26] MEDS ORDERED: gabapentin 400mg capsule PO ONE (07:14)
[2022-09-26] MEDS ORDERED: cefazolin/dext.iso 2gm/50ml 50 ML IV ONE (07:14)
[2022-09-26] MEDS ORDERED: vancomycin/NS 1 GM ADD-VANTAGE 250 ML IV ONE (07:17)
[2022-09-26] MEDS ORDERED: MIDAZolam 1mg/ml 10ml vial ONE (07:21)
[2022-09-26] MEDS ORDERED: fentaNYL /PF 50mcg/ml 5ml ampule ONE ×2 (07:21)
[2022-09-26] MEDS ORDERED: rocuronium 10mg/ml inj IV ONE ×3 (07:23→09:36)
[2022-09-26] MEDS ORDERED: albumin (Human) 5% 250ml 250 ML IV ONE (07:24)
[2022-09-26] MEDS ORDERED: albumin (human) 25% 100ml IV 100 ML IV ONE (07:24)
[2022-09-26 07:31] LABS: PLATELET ESTIMATE NORMAL
[2022-09-26 07:32] LABS: ANISOCYTOSIS 3+; ELLIPTOCYTES FEW; HYPOCHROMASIA 1+; POLYCHROMASIA FEW; STOMATOCYTES FEW; TEAR DROP CELLS FEW
[2022-09-26] MEDS: carvedilol 6.25mg tablet PO SCH (07:34)
[2022-09-26] MEDS ORDERED: DOBUTamine/D5W 500mg/250ml premix IV ONE (07:46)
[2022-09-26] MEDS ORDERED: protamine sulf. 10mg/ml inj. IV ONE (07:46)
[2022-09-26] MEDS ORDERED: sevoflurane 250ml liquid IH ONE (07:46)
[2022-09-26] MEDS ORDERED: propofol 10mg/ml 20ml vial IV ONE (07:46)
[2022-09-26] MEDS ORDERED: nitroGLYCERIN in D5W 50mg/250ml (Tridil) infusion IV ONE (07:46)
[2022-09-26] MEDS ORDERED: NORepinephrine 8 MG in NS 250 ML BAG (32 mcg/ml) IV ONE (07:46)
--- NOTE | 2022-09-26 07:49 | NUR ---
This RN has reviewed and agrees w/the PLUMBING SERVICE TECHNICIAN's physical assessment of this patient.
[2022-09-26] MEDS ORDERED: sod chloride 0.9% 10ml flush syringe IV SCH (08:00)
[2022-09-26] MEDS: busPIRone 5mg tablet PO SCH (08:00)
[2022-09-26] MEDS ORDERED: mupirocin 2% nasal ointment 1gm UD NS SCH (08:00)
[2022-09-26] MEDS: EMPAGLIFLOZIN 10 MG TABLET PO SCH (08:00)
[2022-09-26] MEDS: buPROPion SR 150mg tablet PO SCH ×2 (08:00)
[2022-09-26] MEDS ORDERED: vancomycin 1,000mg inj IVT ONE (08:00)
[2022-09-26] MEDS: digoxin 250mcg (0.25mg) tablet PO SCH (08:00)
[2022-09-26] MEDS ORDERED: ceFAZolin 1000mg inj IR ONE (08:00)
[2022-09-26] MEDS: iron polysaccharide complex 150mg capsule PO SCH (08:00)
[2022-09-26] MEDS: duloxetine 30mg CAPSULE.DR PO SCH (08:00)
[2022-09-26] MEDS: pantoprazole 40mg Tablet.DR PO SCH (08:00)
[2022-09-26 08:44] LABS: ABG BASE EXCESS -8.2 mmol/L (-2.0-2.0); ABG HCO3 18.6 mmol/L (22.0-26.0); ABG OXYGEN SATURATION 99.5 % (94-97); ABG PCO2 43.8 mmHg (32.0-45.0); ABG PO2 297.3 mmHg (75.0-100.0); CL (ABG) 113 mmol/L (99-107); FCOHb 1.3 % (0.0-3.9); FMetHb 0.3 % (0.0-1.5); FO2Hb 97.9 % (94-97); GLUCOSE (ABG) 78 mg/dl (70-104); IONIZED CA (ABG) 1.12 mmol/L (1.10-1.30); K (ABG) 4.5 mmol/L (3.5-5.1)
[2022-09-26 09:46] LABS: ABG BASE EXCESS VENOUS -8.3 mmol/L (-2.0 - 2.0); ABG HCO3 VENOUS 18.1 mmol/L (21.0-28.0); ABG PCO2 VENOUS 41.6 mmHg (38.0-51.0); ABG PO2 VENOUS 54.4 mmHg (25.0-35.0); CL (ABG) 109 mmol/L (99-107); FCOHb VENOUS 1.8 % (0.0- 3.9); FHHb VENOUS 15.2 %; FMetHb VENOUS 0.3 % (0.0 - 0.5); FO2Hb VENOUS 82.7 %; GLUCOSE (ABG) 106 mg/dl (70-104); IONIZED CA (ABG) 0.98 mmol/L (1.10-1.30); K (ABG) 4.5 mmol/L (3.5-5.1); TOTAL HEMOGLOBIN 7.1 G/dl (12.0-16.0)
[2022-09-26 09:50] LABS: ABG BASE EXCESS -8.1 mmol/L (-2.0-2.0); ABG HCO3 17.7 mmol/L (22.0-26.0); ABG OXYGEN SATURATION 99.9 % (94-97); ABG PCO2 37.4 mmHg (32.0-45.0); ABG PO2 423.8 mmHg (75.0-100.0); CL (ABG) 109 mmol/L (99-107); FCOHb 1.8 % (0.0-3.9); FMetHb 0.3 % (0.0-1.5); FO2Hb 97.8 % (94-97); GLUCOSE (ABG) 103 mg/dl (70-104); IONIZED CA (ABG) 0.99 mmol/L (1.10-1.30); K (ABG) 4.6 mmol/L (3.5-5.1); TOTAL HEMOGLOBIN 7.3 G/dl (12.0-16.0)
[2022-09-26 10:02] LABS: ABG BASE EXCESS -5.6 mmol/L (-2.0-2.0); ABG HCO3 21.5 mmol/L (22.0-26.0); ABG OXYGEN SATURATION 99.7 % (94-97); ABG PCO2 50.5 mmHg (32.0-45.0); ABG PO2 344.4 mmHg (75.0-100.0); CL (ABG) 110 mmol/L (99-107); FCOHb 1.6 % (0.0-3.9); FO2Hb 98.1 % (94-97); GLUCOSE (ABG) 102 mg/dl (70-104); IONIZED CA (ABG) 1.02 mmol/L (1.10-1.30); K (ABG) 5.3 mmol/L (3.5-5.1); TOTAL HEMOGLOBIN 7.7 G/dl (12.0-16.0)
[2022-09-26 10:28] LABS: ABG BASE EXCESS -3.8 mmol/L (-2.0-2.0); ABG HCO3 22.6 mmol/L (22.0-26.0); ABG OXYGEN SATURATION 99.6 % (94-97); ABG PCO2 48.7 mmHg (32.0-45.0); ABG PO2 360.6 mmHg (75.0-100.0); CL (ABG) 109 mmol/L (99-107); FCOHb 1.7 % (0.0-3.9); FMetHb 0.3 % (0.0-1.5); FO2Hb 97.6 % (94-97); GLUCOSE (ABG) 108 mg/dl (70-104); IONIZED CA (ABG) 1.43 mmol/L (1.10-1.30)
[2022-09-26 10:47] LABS: ABG BASE EXCESS -4.7 mmol/L (-2.0-2.0); ABG HCO3 21.8 mmol/L (22.0-26.0); ABG OXYGEN SATURATION 99.6 % (94-97); ABG PCO2 48.2 mmHg (32.0-45.0); ABG PO2 353.9 mmHg (75.0-100.0); CL (ABG) 111 mmol/L (99-107); FCOHb 1.5 % (0.0-3.9); FMetHb 0.1 % (0.0-1.5); GLUCOSE (ABG) 117 mg/dl (70-104); IONIZED CA (ABG) 1.17 mmol/L (1.10-1.30); K (ABG) 5.2 mmol/L (3.5-5.1)
[2022-09-26 11:23] LABS: ABG BASE EXCESS VENOUS -5.4 mmol/L (-2.0 - 2.0); ABG HCO3 VENOUS 21.2 mmol/L (21.0-28.0); ABG PCO2 VENOUS 47.5 mmHg (38.0-51.0); ABG PO2 VENOUS 38.8 mmHg (25.0-35.0); CL (ABG) 110 mmol/L (99-107); FCOHb VENOUS 1.7 % (0.0- 3.9); FHHb VENOUS 30.4 %; FMetHb VENOUS 0.3 % (0.0 - 0.5); FO2Hb VENOUS 67.6 %; GLUCOSE (ABG) 134 mg/dl (70-104); IONIZED CA (ABG) 1.13 mmol/L (1.10-1.30); K (ABG) 5.1 mmol/L (3.5-5.1); TOTAL HEMOGLOBIN 8.1 G/dl (12.0-16.0)
[2022-09-26 11:25] LABS: ACTIVATED CLOTTING TIME 128 SEC (101-148)
[2022-09-26] MEDS ORDERED: potassium Cl 40MEQ/270ML bag 250 ML IV PRN (12:15)
[2022-09-26] MEDS ORDERED: potassium Cl 20 mEq SR tablet PO PRN (12:15)
[2022-09-26] MEDS ORDERED: sodium phosphate inj. 30 MMOL in dextrose 5%-water 250 ML IV PRN (12:15)
[2022-09-26] MEDS ORDERED: metoclopramide 5 mg/ml inj IV PRN (12:15)
[2022-09-26] MEDS ORDERED: albumin (Human) 5% 250ml 250 ML IV PRN (12:15)
[2022-09-26] MEDS ORDERED: acetaminophen 325mg tablet PO PRN ×2 (12:15)
[2022-09-26] MEDS ORDERED: Neutra Phos packet PO PRN (12:15)
[2022-09-26] MEDS ORDERED: morphine 4 MG/ML inj SYRINge IV PRN (12:15)
[2022-09-26] MEDS ORDERED: magnesium 4gm in 100ml NS 100 ML IV PRN (12:15)
[2022-09-26] MEDS ORDERED: potassium Cl 20mEq/100mL bag 100 ML IV PRN (12:15)
[2022-09-26] MEDS ORDERED: potassium Cl 40MEQ/1/2NS 520ml 520 ML IV PRN (12:15)
[2022-09-26] MEDS ORDERED: mineral oil 133ml enema RC PRN (12:15)
[2022-09-26] MEDS ORDERED: magnesium hydroxide 30ml (MOM) UD suspension PO PRN (12:15)
[2022-09-26] MEDS ORDERED: potassium CL 10mEq/100ml bag 100 ML IV PRN (12:15)
[2022-09-26] MEDS ORDERED: bisacodyl 10mg suppository rectal RC PRN (12:15)
[2022-09-26] MEDS ORDERED: sodium phosphate inj. 15 MMOL in dextrose 5%-water 250 ML IV PRN (12:15)
--- NOTE | 2022-09-26 12:25 | NUR ---
Nutrition Consult: Pt s/p MV repair, TV repair, PVI, BERNICE ligation today per EMR; would benefit from high protein diet ed once appropriate post-op prior to discharge. Addendum: 09/26/22 at [address] Amended: Links added.
[2022-09-26] MEDS ORDERED: nitroGLYCERIN-Tridil 50MG/D5W 250 ML IV PRN (12:40)
[2022-09-26] MEDS ORDERED: niCARDipine-NS 40mg/200ml IVPB 200 ML IV PRN (12:45)
[2022-09-26] MEDS ORDERED: DOBUTamine-DoBUTrex 500mg/D5W 250 ML IV PRN (12:45)
--- NOTE | 2022-09-26 12:45 | NUR ---
Received to room 2045, accompanied by MDs and surgical crew. Placed on ventilator, to property assessment monitor, arterial line and PA line pressure zeroed & monitored. Chest tubes to suction at 20 cm. Ledbetter cath to gravity drainage. Dressings are dry and intact. See assessment record. All vasoactive drugs are infusing via central line.Two arterial lines present. One in left radial artery not working per anesthesia. Right femoral art line working.
--- NOTE | 2022-09-26 13:00 | NUR ---
Left radial art line dc'd.
[2022-09-26 13:18] LABS: ABG BASE EXCESS -7.8 mmol/L (-2.0-2.0); ABG HCO3 18.5 mmol/L (22.0-26.0); ABG OXYGEN SATURATION 96.1 % (94-97); ABG PCO2 (T) 40.2 mmHg (32.0-45.0); ABG PO2 (T) 95.5 mmHg (75.0-100.0); FCOHb 0.7 % (0.0-3.9); FMetHb 0.2 % (0.0-1.5); FO2Hb 95.2 % (94-97); PATIENT TEMPERATURE 36.8; PEEP 5 cm H2O; RESPIRATORY RATE 10 b/min; TIDAL VOLUME 600 mL; TOTAL HEMOGLOBIN 11.6 G/dl (12.0-16.0)
[2022-09-26 13:34] LABS: APTT 35 SECONDS (22-32)
[2022-09-26 13:43] LABS: BASOPHILS % (AUTO) 0.6 % (0-1); EOSINOPHILS % (AUTO) 0.4 % (0-6); HEMATOCRIT 33.8 % (35.0-45.0); HEMOGLOBIN 10.9 g/dl (12.0-16.0); LYMPHOCYTES # (AUTO) 0.5 X10'3 (1.1-4.8); LYMPHOCYTES % (AUTO) 8.5 % (21-51); MEAN CORPUSCULAR HGB CONC 32.4 g/dL (33.0-36.5); MEAN CORPUSCULAR VOLUME 92.8 FL (78-98); MEAN PLATELET VOLUME 7.8 FL (7.4-10.4); MONOCYTES # (AUTO) 0.3 X10'3 (0-0.9); MONOCYTES % (AUTO) 5.7 % (2-12); NEUTROPHILS # (AUTO) 5.3 X10'3 (1.8-7.7); NEUTROPHILS % (AUTO) 84.8 % (42-75); PLATELET COUNT 153 X10'3 (140-440); RED BLOOD COUNT 3.64 X10'6 (4.20-5.60); WHITE BLOOD COUNT 6.2 X10'3 (4.5-11.0)
[2022-09-26 13:44] LABS: ALANINE AMINOTRANSFERASE 23 U/L (12-78); ALBUMIN 2.6 G/DL (3.4-5.0); ALBUMIN/GLOBULIN RATIO 1.4 (1.1-1.5); ALKALINE PHOSPHATASE 149 IU/L (46-116); ANION GAP 7 (8-16); ASPARTATE AMINO TRANSFERASE 60 U/L (10-37); BILIRUBIN,TOTAL 1.3 MG/DL (0.1-1.0); BLOOD UREA NITROGEN 20 MG/DL (7-18); BUN/CREATININE RATIO 20.2 (10.0-20.0); CALCIUM 7.6 MG/DL (8.5-10.1); CHLORIDE 112 MMOL/L (99-107); CREATININE 0.99 MG/DL (0.40-0.90); GLUCOSE 141 MG/DL (70-104); MAGNESIUM 2.2 MG/DL (1.5-2.4); PHOSPHORUS 3.7 MG/DL (2.3-4.5); POTASSIUM 4.9 MMOL/L (3.5-5.1); SODIUM 140 MMOL/L (135-145); TOTAL CARBON DIOXIDE 20.8 MMOL/L (24-32); TOTAL PROTEIN 4.4 G/DL (6.4-8.2); eGFR 56 ML/MIN
[2022-09-26] MEDS: sodium chloride 0.45% 1,000 ML IV SCH (13:52)
[2022-09-26] MEDS: Insulin Reg/NS 100units/100mL 100 ML IV SCH (13:53)
[2022-09-26] MEDS: magnesium 2GM in 50ml NS 50 ML IV PRN (13:58)
--- NOTE | 2022-09-26 14:57 | NUR ---
Dc'd PA line as it is not working for PA pressures or CO/CI since anesthesia was unable to thread it.
--- NOTE | 2022-09-26 15:39 | NUR ---
BP cuff removed from left forearm. Large skin tear noted under cuff. Dressed. Another skin tear on left forearm and right ac. All skn tears dressed. WOC consult to be placed.
[2022-09-26] MEDS: ceFAZolin/D5W- 1GM premix 50 ML IV SCH (15:43)
[2022-09-26 16:32] LABS: ABG BASE EXCESS -8.6 mmol/L (-2.0-2.0); ABG OXYGEN SATURATION 95.6 % (94-97); ABG PCO2 (T) 35.3 mmHg (32.0-45.0); ABG PO2 (T) 91.3 mmHg (75.0-100.0); FCOHb 0.3 % (0.0-3.9); FMetHb 0.3 % (0.0-1.5); PEEP 5 cm H2O; TOTAL HEMOGLOBIN 11.9 G/dl (12.0-16.0)
--- NOTE | 2022-09-26 17:26 | NUR ---
Pt. extubated to 2L nc at 1650. VSS. Spouse called, updated on pt. status.
--- NOTE | 2022-09-26 18:12 | NUR ---
Problems reprioritized. Patient report given, questions answered & plan of care reviewed with Page RAMOS.
--- NOTE | 2022-09-26 18:21 | NUR ---
Patient in room ICU 2045. I have received report from Linda RAMOS and had the opportunity to ask questions and assume patient care.
[2022-09-26 19:24] LABS: BASOPHILS % (AUTO) 0.2 % (0-1); EOSINOPHILS % (AUTO) 0 % (0-6); HEMATOCRIT 34.5 % (35.0-45.0); HEMOGLOBIN 11.1 g/dl (12.0-16.0); LYMPHOCYTES # (AUTO) 0.6 X10'3 (1.1-4.8); LYMPHOCYTES % (AUTO) 7.2 % (21-51); MEAN CORPUSCULAR HGB CONC 32.3 g/dL (33.0-36.5); MEAN CORPUSCULAR VOLUME 92.8 FL (78-98); MEAN PLATELET VOLUME 7.9 FL (7.4-10.4); MONOCYTES # (AUTO) 0.5 X10'3 (0-0.9); MONOCYTES % (AUTO) 6.2 % (2-12); NEUTROPHILS # (AUTO) 7.2 X10'3 (1.8-7.7); NEUTROPHILS % (AUTO) 86.4 % (42-75); PLATELET COUNT 133 X10'3 (140-440); RED BLOOD COUNT 3.72 X10'6 (4.20-5.60); RED CELL DISTRIBUTION WIDTH 22.6 % (11.5-14.5); WHITE BLOOD COUNT 8.4 X10'3 (4.5-11.0)
[2022-09-26 19:27] LABS: ALBUMIN 2.7 G/DL (3.4-5.0); ANION GAP 10 (8-16); BLOOD UREA NITROGEN 19 MG/DL (7-18); BUN/CREATININE RATIO 16.8 (10.0-20.0); CALCIUM 7.6 MG/DL (8.5-10.1); CHLORIDE 112 MMOL/L (99-107); CREATININE 1.13 MG/DL (0.40-0.90); GLUCOSE 148 MG/DL (70-104); MAGNESIUM 2.5 MG/DL (1.5-2.4); PHOSPHORUS 3.7 MG/DL (2.3-4.5); POTASSIUM 4.5 MMOL/L (3.5-5.1); SODIUM 142 MMOL/L (135-145); TOTAL CARBON DIOXIDE 20.2 MMOL/L (24-32); eGFR 48 ML/MIN
[2022-09-26] MEDS: sennosides/docusate sodium tablet PO SCH (19:47)
[2022-09-26] MEDS: atorvastatin 10mg tablet PO SCH (19:47)
[2022-09-26] MEDS: mupirocin 2% nasal ointment 1gm UD NS SCH (19:47)
[2022-09-26] MEDS: vancomycin/NS 1 GM ADD-VANTAGE 250 ML IV SCH (19:47)
[2022-09-27] VITALS (23 sets, daily range): BP systolic 91–152; BP diastolic 39–83
[2022-09-27] MEDS: ceFAZolin/D5W- 1GM premix 50 ML IV SCH ×3 (00:56→15:44)
[2022-09-27] MEDS: HYDROcodone/acetaminophen 10/325mg tab PO PRN ×4 (02:28→19:01)
[2022-09-27] MEDS ORDERED: HYDROcodone/acetaminophen 10/325mg tab PO ONE (02:35)
[2022-09-27 04:32] LABS: BASOPHILS % (AUTO) 0.1 % (0-1); EOSINOPHILS % (AUTO) 0 % (0-6); HEMATOCRIT 32.6 % (35.0-45.0); HEMOGLOBIN 10.6 g/dl (12.0-16.0); LYMPHOCYTES % (AUTO) 9.4 % (21-51); MEAN CORPUSCULAR HEMOGLOBIN 29.9 PG (27.0-31.0); MEAN CORPUSCULAR HGB CONC 32.5 g/dL (33.0-36.5); MEAN CORPUSCULAR VOLUME 92.1 FL (78-98); MEAN PLATELET VOLUME 8.1 FL (7.4-10.4); MONOCYTES # (AUTO) 1.2 X10'3 (0-0.9); MONOCYTES % (AUTO) 10.9 % (2-12); NEUTROPHILS # (AUTO) 8.5 X10'3 (1.8-7.7); NEUTROPHILS % (AUTO) 79.6 % (42-75); PLATELET COUNT 163 X10'3 (140-440); RED BLOOD COUNT 3.54 X10'6 (4.20-5.60); RED CELL DISTRIBUTION WIDTH 22.4 % (11.5-14.5); WHITE BLOOD COUNT 10.7 X10'3 (4.5-11.0)
[2022-09-27 04:42] LABS: ALANINE AMINOTRANSFERASE 26 U/L (12-78); ALBUMIN 2.5 G/DL (3.4-5.0); ALBUMIN/GLOBULIN RATIO 1.2 (1.1-1.5); ALKALINE PHOSPHATASE 151 IU/L (46-116); ANION GAP 9 (8-16); ASPARTATE AMINO TRANSFERASE 62 U/L (10-37); BILIRUBIN,TOTAL 0.5 MG/DL (0.1-1.0); BLOOD UREA NITROGEN 20 MG/DL (7-18); BUN/CREATININE RATIO 16.5 (10.0-20.0); CALCIUM 7.6 MG/DL (8.5-10.1); CHLORIDE 113 MMOL/L (99-107); CREATININE 1.21 MG/DL (0.40-0.90); GLUCOSE 125 MG/DL (70-104); MAGNESIUM 2.4 MG/DL (1.5-2.4); PHOSPHORUS 3.8 MG/DL (2.3-4.5); POTASSIUM 4.2 MMOL/L (3.5-5.1); SODIUM 143 MMOL/L (135-145); TOTAL CARBON DIOXIDE 20.7 MMOL/L (24-32); TOTAL PROTEIN 4.6 G/DL (6.4-8.2); eGFR 45 ML/MIN
[2022-09-27] MEDS: magnesium 2GM in 50ml NS 50 ML IV PRN (04:54)
[2022-09-27] MEDS ORDERED: MALTODEXTRIN/FRUCTOSE 0.68 KCAL/ML LIQUID 296ML BOTTLE PO ONE (05:00)
[2022-09-27] MEDS ORDERED: ceFAZolin inj. 3,000 MG in normal saline 100ml IV soln 100 ML IV ONE (05:30)
--- NOTE | 2022-09-27 06:18 | NUR ---
Problems reprioritized. Patient report given, questions answered & plan of care reviewed with Linda RAMOS.
[2022-09-27 07:42] LABS: ACT @ 1.70 U 323 SEC (193-297); ACT @ 2.84 U 444 SEC (260-420); BASELINE ACT 122 SEC (101-148); PATIENT WEIGHT 81.3k KG
[2022-09-27] MEDS ORDERED: albumin (Human) 5% 250ml 250 ML IV ONE (07:50)
[2022-09-27] MEDS: metoprolol tartrate 12.5mg (1/2 tablet) PO SCH ×2 (07:50→19:01)
[2022-09-27] MEDS: mupirocin 2% nasal ointment 1gm UD NS SCH ×2 (07:50→19:02)
[2022-09-27] MEDS: sennosides/docusate sodium tablet PO SCH ×2 (07:50→19:02)
[2022-09-27] MEDS ORDERED: levoTHYROXINE 25mcg tablet PO ONE (07:50)
[2022-09-27] MEDS: aspirin 81mg tab.chew PO SCH (07:50)
[2022-09-27] MEDS: vancomycin/NS 1 GM ADD-VANTAGE 250 ML IV SCH ×2 (07:51→19:03)
[2022-09-27] MEDS: buPROPion SR 150mg tablet PO SCH ×2 (07:58→19:02)
[2022-09-27] MEDS: duloxetine 30mg CAPSULE.DR PO SCH (07:58)
[2022-09-27] MEDS: gabapentin 300mg capsule PO SCH ×2 (08:07→19:02)
--- NOTE | 2022-09-27 09:21 | NUR ---
Bella JOHNSON notified of high bp. Lisinopril ordered and administered to pt. Order to dc art line received, art dc'd. WOC here to assess skin tears.
[2022-09-27 10:28] LABS: TOTAL HEMOGLOBIN 6.7 G/dl (12.0-16.0)
[2022-09-27 10:29] LABS: TOTAL HEMOGLOBIN 6.8 G/dl (12.0-16.0)
--- NOTE | 2022-09-27 12:29 | NUR ---
F/u 09/27: Pt seen by MARYSOL at bedside for written/verbal high protein diet ed w/ RD contact information provided. Noted pt hx gastric bypass 2000 in EMR; pt reports unsure of surgery but thinks they just took part of her stomach. MARYSOL d/w RN recommends MVM w/ Fe if surgeon agreeable. Pt is agreeable to strawberry-banana Delta smoothie BIDLD for wound healing; MD notified. RD encouraged pt to contact dietitian's office if further nutrition questions/concerns. Rec: 1. continue heart healthy diet per MD 2. strawberry-banana delta smoothie BIDLD for wound healing; pending MD verification in EMR 3. Routine MVM w/ Fe supplementation given likely hx gastric sleeve per pt report; per physician discretion 4. bowel care per rx 5. daily scaled wt Addendum: 09/27/22 at [address] Amended: Links added.
[2022-09-27] MEDS: JUVEN Smoothie Arginine/Glut./Ca2+Bmb (Juven 19.3pkt) 240ml cup PO SCH ×2 (12:30→17:30)
--- NOTE | 2022-09-27 14:48 | NUR ---
PRESSURE ULCER EDUCATION: DEFINITION: A pressure ulcer is an area of skin that breaks down when you stay in one position too long. The constant pressure against the skin reduces the blood flow to that area and the affected tissue dies. CAUSES: "Being bedridden or in a wheelchair "Fragile skin "Having a chronic condition, such as diabetes or vascular disease "Inability to move certain parts of your body without assistance "Older age "Incontinence of urine or stool SYMPTOMS: "A reddened area that DOES NOT turn white when pressed on - this can be the beginning of a pressure ulcer "A blister, deep sore or a crater - these can be advanced pressure ulcers FIRST AID: "Relieve the pressure on this area "Keep the area clean and dry "Call your primary doctor if you see any of the above symptoms "DO NOT massage the area "DO NOT use a donut shaped or ring shaped pillow- these actually interfere with the blood flow and cause complications PREVENTION: "Check for pressure ulcers everyday "Change position at least every two hours to relieve pressure "Use items that help relieve pressure- pillows, sheepskin, foam padding, and powders. "Keep skin clean and dry "Eat healthy well balanced meals "Exercise daily IF YOU SEE ANY OF THESE SYMPTOMS WHILE IN THE HOSPITAL - TELL YOUR NURSE IMMEDIATELY. IF YOU SEE ANY OF THESE SYMPTOMS WHILE AT HOME OR HAVE ANY QUESTIONS OR CONCERNS ABOUT PRESSURE ULCERS - CALL YOUR PRIMARY DOCTOR IMMEDIATELY. Addendum: 09/27/22 at 1449 by [address] High RN Amended: Links added.
[2022-09-27] MEDS: atorvastatin 10mg tablet PO SCH (19:02)
[2022-09-27] MEDS: Insulin Reg/NS 100units/100mL 100 ML IV SCH (22:20)
--- NOTE | 2022-09-27 22:30 | NUR ---
Rec'd report from RICHARD Barnes.alert and oriented, c/o incisional chest pain. Too soon for dann, medicated with morphine as ordered.
[2022-09-27] MEDS: morphine 2 MG/ML inj. syringe IV PRN (22:43)
[2022-09-28] VITALS (24 sets, daily range): BP systolic 95–136; BP diastolic 55–83
[2022-09-28] MEDS: ceFAZolin/D5W- 1GM premix 50 ML IV SCH
[2022-09-28] MEDS: HYDROcodone/acetaminophen 10/325mg tab PO PRN ×5 (02:31→19:58)
[2022-09-28 02:41] LABS: BASOPHILS % (AUTO) 0.3 % (0-1); EOSINOPHILS % (AUTO) 0.3 % (0-6); HEMATOCRIT 31.1 % (35.0-45.0); HEMOGLOBIN 9.8 g/dl (12.0-16.0); LYMPHOCYTES # (AUTO) 1.4 X10'3 (1.1-4.8); MEAN CORPUSCULAR HEMOGLOBIN 29.7 PG (27.0-31.0); MEAN CORPUSCULAR HGB CONC 31.6 g/dL (33.0-36.5); MEAN PLATELET VOLUME 8.1 FL (7.4-10.4); MONOCYTES # (AUTO) 1.5 X10'3 (0-0.9); NEUTROPHILS # (AUTO) 7.6 X10'3 (1.8-7.7); NEUTROPHILS % (AUTO) 72.4 % (42-75); PLATELET COUNT 183 X10'3 (140-440); WHITE BLOOD COUNT 10.5 X10'3 (4.5-11.0)
[2022-09-28 02:52] LABS: ALBUMIN 2.8 G/DL (3.4-5.0); ANION GAP 10 (8-16); BLOOD UREA NITROGEN 34 MG/DL (7-18); BUN/CREATININE RATIO 17.3 (10.0-20.0); CALCIUM 8.1 MG/DL (8.5-10.1); CHLORIDE 111 MMOL/L (99-107); CREATININE 1.96 MG/DL (0.40-0.90); GLUCOSE 119 MG/DL (70-104); MAGNESIUM 2.9 MG/DL (1.5-2.4); POTASSIUM 5.4 MMOL/L (3.5-5.1); SODIUM 140 MMOL/L (135-145); TOTAL CARBON DIOXIDE 19.4 MMOL/L (24-32); eGFR 26 ML/MIN
[2022-09-28 03:26] LABS: ANISOCYTOSIS 3+; PLATELET ESTIMATE NORMAL; TOTAL CELLS COUNTED 100
[2022-09-28 03:27] LABS: BURR CELLS FEW; ELLIPTOCYTES FEW; POLYCHROMASIA FEW
--- NOTE | 2022-09-28 06:00 | NUR ---
Patient in room ICU 2040. I have received report from Rachael RAMOS and had the opportunity to ask questions and assume patient care.
[2022-09-28] MEDS ORDERED: furosemide 40mg/4ml inj IV ONE (07:05)
[2022-09-28] MEDS: duloxetine 30mg CAPSULE.DR PO SCH (08:55)
[2022-09-28] MEDS: sennosides/docusate sodium tablet PO SCH ×2 (08:55→19:57)
[2022-09-28] MEDS: mupirocin 2% nasal ointment 1gm UD NS SCH (08:55)
[2022-09-28] MEDS: aspirin 81mg tab.chew PO SCH (08:55)
[2022-09-28] MEDS: buPROPion SR 150mg tablet PO SCH ×2 (08:55→19:57)
[2022-09-28] MEDS: gabapentin 300mg capsule PO SCH ×2 (08:55→19:57)
[2022-09-28] MEDS: metoprolol tartrate 12.5mg (1/2 tablet) PO SCH ×2 (08:55→19:57)
[2022-09-28] MEDS: levoTHYROXINE 25mcg tablet PO SCH (08:59)
[2022-09-28] MEDS: pantoprazole 40mg Tablet.DR PO SCH (08:59)
[2022-09-28] MEDS: JUVEN Smoothie Arginine/Glut./Ca2+Bmb (Juven 19.3pkt) 240ml cup PO SCH ×2 (12:54→17:30)
[2022-09-28] MEDS: sodium chloride 0.45% 1,000 ML IV SCH (13:00)
[2022-09-28 15:43] LABS: COLOR,URINE YELLOW (Yellow); GLUCOSE, URINE NEGATIVE (Neg); KETONES,URINE NEGATIVE (Neg); LEUKOCYTE ESTERASE ,URINE TRACE (Neg); NITRITES, URINE NEGATIVE (Neg); OCCULT BLOOD,URINE MODERATE (Neg); PROTEIN,URINE NEGATIVE (Neg); UROBILINOGEN,URINE 0.2 E.U/dL (0.2-1.0)
[2022-09-28 15:49] LABS: UA COLLECTION TYPE FOLEY CATH
[2022-09-28 15:50] LABS: CLARITY,URINE SLIGHTLY CLOUDY (Clear)
[2022-09-28 15:51] LABS: BACTERIA,URINE FEW /HPF (Neg); MUCUS STRANDS FEW /LPF (Neg); SQUAMOUS EPITHELIAL CELL,UR FEW /LPF (FEW); WBC,URINE 0-4 /HPF (0-4)
[2022-09-28 15:52] LABS: HYALINE CASTS 0-3 /LPF (NEGATIVE); WBC CLUMPS,URINE FEW /HPF (NEGATIVE)
[2022-09-28] MEDS: ondansetron/PF 4mg/2ml inj IV PRN (17:37)
--- NOTE | 2022-09-28 18:22 | NUR ---
Problems reprioritized. Patient report given, questions answered & plan of care reviewed with Rachael RAMOS.
[2022-09-28] MEDS: atorvastatin 10mg tablet PO SCH (19:58)
[2022-09-28] MEDS: morphine 2 MG/ML inj. syringe IV PRN (21:36)
[2022-09-29] VITALS (23 sets, daily range): BP systolic 103–164; BP diastolic 51–108
[2022-09-29] MEDS: HYDROcodone/acetaminophen 10/325mg tab PO PRN ×5 (02:27→18:53)
[2022-09-29 02:52] LABS: BASOPHILS % (AUTO) 0.5 % (0-1); EOSINOPHILS # (AUTO) 0.3 X10'3 (0-0.9); EOSINOPHILS % (AUTO) 3.8 % (0-6); HEMATOCRIT 30.2 % (35.0-45.0); HEMOGLOBIN 9.5 g/dl (12.0-16.0); LYMPHOCYTES # (AUTO) 1.5 X10'3 (1.1-4.8); LYMPHOCYTES % (AUTO) 17.9 % (21-51); MEAN CORPUSCULAR HEMOGLOBIN 29.5 PG (27.0-31.0); MEAN CORPUSCULAR HGB CONC 31.3 g/dL (33.0-36.5); MONOCYTES # (AUTO) 0.8 X10'3 (0-0.9); MONOCYTES % (AUTO) 10.3 % (2-12); NEUTROPHILS # (AUTO) 5.5 X10'3 (1.8-7.7); NEUTROPHILS % (AUTO) 67.5 % (42-75); PLATELET COUNT 166 X10'3 (140-440); RED BLOOD COUNT 3.21 X10'6 (4.20-5.60); RED CELL DISTRIBUTION WIDTH 22.8 % (11.5-14.5); WHITE BLOOD COUNT 8.2 X10'3 (4.5-11.0)
[2022-09-29 03:05] LABS: ALBUMIN 2.5 G/DL (3.4-5.0); ANION GAP 8 (8-16); BLOOD UREA NITROGEN 38 MG/DL (7-18); BUN/CREATININE RATIO 22.9 (10.0-20.0); CALCIUM 7.9 MG/DL (8.5-10.1); CHLORIDE 109 MMOL/L (99-107); CREATININE 1.66 MG/DL (0.40-0.90); GLUCOSE 83 MG/DL (70-104); MAGNESIUM 2.5 MG/DL (1.5-2.4); PHOSPHORUS 3.3 MG/DL (2.3-4.5); POTASSIUM 4.6 MMOL/L (3.5-5.1); SODIUM 138 MMOL/L (135-145); TOTAL CARBON DIOXIDE 20.7 MMOL/L (24-32); eGFR 31 ML/MIN
[2022-09-29 03:45] LABS: ANISOCYTOSIS 3+; BURR CELLS FEW; ELLIPTOCYTES FEW; NUCLEATED RED BLOOD CELLS 3 /100WBC (0-0); PLATELET ESTIMATE NORMAL; TEAR DROP CELLS FEW; TOTAL CELLS COUNTED 100
[2022-09-29 03:48] LABS: SMUDGE CELLS FEW
--- NOTE | 2022-09-29 06:46 | NUR ---
Patient in room ICU 2040. I have received report from Rachael RAMOS and had the opportunity to ask questions and assume patient care.
[2022-09-29] MEDS: buPROPion SR 150mg tablet PO SCH ×2 (07:42→20:00)
[2022-09-29] MEDS: metoprolol tartrate 12.5mg (1/2 tablet) PO SCH ×2 (07:43→20:00)
[2022-09-29] MEDS: aspirin 81mg tab.chew PO SCH (07:44)
[2022-09-29] MEDS: levoTHYROXINE 25mcg tablet PO SCH (07:44)
[2022-09-29] MEDS: duloxetine 30mg CAPSULE.DR PO SCH (07:44)
[2022-09-29] MEDS: pantoprazole 40mg Tablet.DR PO SCH (07:44)
[2022-09-29] MEDS: sennosides/docusate sodium tablet PO SCH ×2 (07:44→20:00)
[2022-09-29] MEDS: gabapentin 300mg capsule PO SCH (07:44)
[2022-09-29] MEDS: JUVEN Smoothie Arginine/Glut./Ca2+Bmb (Juven 19.3pkt) 240ml cup PO SCH ×3 (12:30→19:19)
[2022-09-29] MEDS ORDERED: furosemide 20 MG/2 ML vial IV ONE (13:45)
[2022-09-29 14:18] LABS: ALBUMIN 2.6 G/DL (3.4-5.0); ANION GAP 9 (8-16); BLOOD UREA NITROGEN 38 MG/DL (7-18); BUN/CREATININE RATIO 22.4 (10.0-20.0); CALCIUM 7.7 MG/DL (8.5-10.1); CHLORIDE 105 MMOL/L (99-107); GLUCOSE 116 MG/DL (70-104); PHOSPHORUS 3.9 MG/DL (2.3-4.5); POTASSIUM 5.1 MMOL/L (3.5-5.1); SODIUM 134 MMOL/L (135-145); TOTAL CARBON DIOXIDE 19.6 MMOL/L (24-32); eGFR 30 ML/MIN
[2022-09-29 14:45] LABS: % IRON SATURATION 8 % (11-46); IRON 16 UG/DL (49-151); TOTAL IRON BINDING CAPACITY 197 UG/DL (259-388)
--- NOTE | 2022-09-29 18:17 | NUR ---
Problems reprioritized. Patient report given, questions answered & plan of care reviewed with Kaity RAMOS.
[2022-09-29] MEDS: atorvastatin 10mg tablet PO SCH (21:19)
[2022-09-30] VITALS (18 sets, daily range): BP systolic 89–136; BP diastolic 53–82
[2022-09-30 03:17] LABS: BASOPHILS # (AUTO) 0.1 X10'3 (0-0.2); BASOPHILS % (AUTO) 0.7 % (0-1); EOSINOPHILS # (AUTO) 0.3 X10'3 (0-0.9); EOSINOPHILS % (AUTO) 3.7 % (0-6); HEMATOCRIT 30.5 % (35.0-45.0); HEMOGLOBIN 9.6 g/dl (12.0-16.0); LYMPHOCYTES # (AUTO) 1.2 X10'3 (1.1-4.8); LYMPHOCYTES % (AUTO) 13.5 % (21-51); MEAN CORPUSCULAR HEMOGLOBIN 29.3 PG (27.0-31.0); MEAN CORPUSCULAR HGB CONC 31.6 g/dL (33.0-36.5); MEAN PLATELET VOLUME 7.8 FL (7.4-10.4); MONOCYTES # (AUTO) 0.8 X10'3 (0-0.9); MONOCYTES % (AUTO) 9.1 % (2-12); NEUTROPHILS # (AUTO) 6.6 X10'3 (1.8-7.7); PLATELET COUNT 190 X10'3 (140-440); RED BLOOD COUNT 3.28 X10'6 (4.20-5.60); RED CELL DISTRIBUTION WIDTH 22.1 % (11.5-14.5)
[2022-09-30 03:38] LABS: % IRON SATURATION 8 % (11-46); IRON 15 UG/DL (49-151); TOTAL IRON BINDING CAPACITY 184 UG/DL (259-388)
[2022-09-30 03:51] LABS: ALBUMIN 2.5 G/DL (3.4-5.0); ANION GAP 9 (8-16); BLOOD UREA NITROGEN 39 MG/DL (7-18); BUN/CREATININE RATIO 25.8 (10.0-20.0); CALCIUM 8.1 MG/DL (8.5-10.1); CHLORIDE 106 MMOL/L (99-107); CREATININE 1.51 MG/DL (0.40-0.90); FERRITIN 282 NG/ML (8-252); GLUCOSE 87 MG/DL (70-104); MAGNESIUM 2.3 MG/DL (1.5-2.4); PHOSPHORUS 3.3 MG/DL (2.3-4.5); POTASSIUM 4.6 MMOL/L (3.5-5.1); SODIUM 135 MMOL/L (135-145); TOTAL CARBON DIOXIDE 19.8 MMOL/L (24-32); eGFR 34 ML/MIN
[2022-09-30] MEDS: HYDROcodone/acetaminophen 10/325mg tab PO PRN ×5 (06:24→21:19)
--- NOTE | 2022-09-30 06:27 | NUR ---
Patient in bed awake, family at bedside.Medicated for pain, we will monitor.
[2022-09-30] MEDS: sennosides/docusate sodium tablet PO SCH ×2 (07:19→20:06)
[2022-09-30] MEDS: pantoprazole 40mg Tablet.DR PO SCH (07:19)
[2022-09-30] MEDS: metoprolol tartrate 12.5mg (1/2 tablet) PO SCH ×2 (07:19→20:05)
[2022-09-30] MEDS: buPROPion SR 150mg tablet PO SCH (07:19)
[2022-09-30] MEDS: duloxetine 30mg CAPSULE.DR PO SCH (07:19)
[2022-09-30] MEDS: levoTHYROXINE 25mcg tablet PO SCH (07:19)
[2022-09-30] MEDS: gabapentin 300mg capsule PO SCH (07:20)
[2022-09-30] MEDS: aspirin 81mg tab.chew PO SCH (07:20)
--- NOTE | 2022-09-30 08:56 | NUR ---
Jose Luis PA/cardiology at bedside,discontinued 2 chest tubes and pacer wires.Sterile gauze in place,pt tolerated procedure.
[2022-09-30] MEDS ORDERED: potassium Cl 40MEQ/270ML bag 250 ML IV PRN (09:35)
[2022-09-30] MEDS ORDERED: potassium Cl 20 mEq SR tablet PO PRN ×2 (09:35)
[2022-09-30] MEDS ORDERED: potassium CL 10mEq/100ml bag 100 ML IV PRN (09:35)
[2022-09-30] MEDS ORDERED: potassium Cl 20mEq/100mL bag 100 ML IV PRN (09:35)
[2022-09-30] MEDS ORDERED: magnesium 2GM in 50ml NS 50 ML IV PRN (09:35)
[2022-09-30] MEDS ORDERED: potassium Cl 40MEQ/1/2NS 520ml 520 ML IV PRN (09:35)
[2022-09-30] MEDS ORDERED: magnesium 4gm in 100ml NS 100 ML IV PRN (09:35)
--- NOTE | 2022-09-30 11:42 | NUR ---
Nutrition consult: Pt already seen by RD for education, please see prior RD note. Pt continues on a no concentrated sweets diet with declining PO intake, previously with 100% PO intake down to 75% 09/27 with refusal of dinner 09/28 and 25-50% PO intake since 09/29. Pt receiving a Delta smoothie BIDLD however documented to be refusing all ONS except for 25% PO intake of ONS at lunch 09/28. Per EMR pt is confused this morning. D/w RN who states pt very loopy this morning with some ICU delirium after not sleeping. Changes in mental status is likely impacting PO intake. Per EMR pt has been receiving minimum assistance with meals since lunch 09/28. Noted pt with low iron studies, d/w RN recommendation for routine Iron and Vitamin C supplementation with physician approval. LBM 09/26 per EMR, d/w RN. Pt receiving routine bowel care and with additional PRN bowel care available. Will continue to follow and make recommendations as appropriate. Recommendations: 1. Continue no concentrated sweets diet 2. [place]-banana Delta smoothie BIDLD for wound healing 3. Encourage PO intake and assist with meals while pt with decreased mentation 4. Routine MVM with Iron and Vitamin C supplementation given h/o gastric bypass and low iron studies 5. Routine bowel care; utilize PRN bowel care 6. Daily scaled weights per rx Addendum: 09/30/22 at [address] Amended: Links added.
[2022-09-30] MEDS: ondansetron/PF 4mg/2ml inj IV PRN (13:16)
[2022-09-30] MEDS ORDERED: traZODone 150mg tablet PO PRN (14:15)
[2022-09-30] MEDS: iron sucrose complex injection 200 MG in normal saline 100ml IV soln 100 ML IV SCH (17:38)
[2022-09-30] MEDS: JUVEN Smoothie Arginine/Glut./Ca2+Bmb (Juven 19.3pkt) 240ml cup PO SCH (17:38)
--- NOTE | 2022-09-30 18:14 | NUR ---
Problems reprioritized. Patient report given, questions answered & plan of care reviewed with Page RAMOS.
--- NOTE | 2022-09-30 18:19 | NUR ---
Patient in room ICU 2040. I have received report from Ashly RAMOS and had the opportunity to ask questions and assume patient care.
[2022-09-30] MEDS: buPROPion SR 100mg tab PO SCH (20:06)
[2022-09-30] MEDS: magnesium Cl slow-release 64mg tablet PO SCH (20:06)
[2022-09-30] MEDS: mirtazapine 15mg tablet PO SCH (20:29)
[2022-09-30] MEDS: atorvastatin 10mg tablet PO SCH (20:29)
[2022-10-01] VITALS (14 sets, daily range): BP systolic 81–153; BP diastolic 39–93
[2022-10-01] MEDS: HYDROcodone/acetaminophen 10/325mg tab PO PRN ×5 (04:24→21:17)
--- NOTE | 2022-10-01 06:11 | NUR ---
Problems reprioritized. Patient report given, questions answered & plan of care reviewed with Fede RAMOS.
[2022-10-01 07:35] LABS: BASOPHILS % (AUTO) 0.4 % (0-1); EOSINOPHILS # (AUTO) 0.3 X10'3 (0-0.9); EOSINOPHILS % (AUTO) 3.4 % (0-6); HEMOGLOBIN 9.8 g/dl (12.0-16.0); LYMPHOCYTES % (AUTO) 10.1 % (21-51); MEAN CORPUSCULAR HEMOGLOBIN 29.8 PG (27.0-31.0); MEAN CORPUSCULAR HGB CONC 31.7 g/dL (33.0-36.5); MEAN CORPUSCULAR VOLUME 93.9 FL (78-98); MEAN PLATELET VOLUME 7.6 FL (7.4-10.4); MONOCYTES # (AUTO) 1.1 X10'3 (0-0.9); MONOCYTES % (AUTO) 11.5 % (2-12); NEUTROPHILS # (AUTO) 7.2 X10'3 (1.8-7.7); NEUTROPHILS % (AUTO) 74.6 % (42-75); PLATELET COUNT 180 X10'3 (140-440); RED CELL DISTRIBUTION WIDTH 21.9 % (11.5-14.5); WHITE BLOOD COUNT 9.7 X10'3 (4.5-11.0)
[2022-10-01] MEDS: pantoprazole 40mg Tablet.DR PO SCH (07:42)
[2022-10-01] MEDS: duloxetine 30mg CAPSULE.DR PO SCH (07:42)
[2022-10-01] MEDS: sennosides/docusate sodium tablet PO SCH ×2 (07:42→20:15)
[2022-10-01] MEDS: buPROPion SR 100mg tab PO SCH ×2 (07:42→20:15)
[2022-10-01] MEDS: magnesium Cl slow-release 64mg tablet PO SCH ×2 (07:42→20:15)
[2022-10-01] MEDS: gabapentin 300mg capsule PO SCH (07:42)
[2022-10-01] MEDS: levoTHYROXINE 25mcg tablet PO SCH (07:42)
[2022-10-01] MEDS: metoprolol tartrate 12.5mg (1/2 tablet) PO SCH ×2 (07:43→20:14)
[2022-10-01 08:09] LABS: ANISOCYTOSIS 3+; PLATELET ESTIMATE NORMAL; POIKILOCYTOSIS FEW; POLYCHROMASIA FEW
[2022-10-01 08:12] LABS: ALBUMIN 2.2 G/DL (3.4-5.0); ANION GAP 10 (8-16); BLOOD UREA NITROGEN 27 MG/DL (7-18); BUN/CREATININE RATIO 24.8 (10.0-20.0); CHLORIDE 107 MMOL/L (99-107); CREATININE 1.09 MG/DL (0.40-0.90); GLUCOSE 78 MG/DL (70-104); POTASSIUM 4.6 MMOL/L (3.5-5.1); SODIUM 139 MMOL/L (135-145); TOTAL CARBON DIOXIDE 21.8 MMOL/L (24-32); eGFR 50 ML/MIN
[2022-10-01] MEDS: aspirin 81mg tab.chew PO SCH (08:40)
[2022-10-01] MEDS: iron sucrose complex injection 200 MG in normal saline 100ml IV soln 100 ML IV SCH (08:42)
[2022-10-01] MEDS: JUVEN Smoothie Arginine/Glut./Ca2+Bmb (Juven 19.3pkt) 240ml cup PO SCH ×3 (13:00→19:08)
--- NOTE | 2022-10-01 18:44 | NUR ---
Problems reprioritized. Patient report given, questions answered & plan of care reviewed with Jim RAMOS.
--- NOTE | 2022-10-01 18:51 | NUR ---
Patient in room PCU 3026. I have received report from Michel and had the opportunity to ask questions and assume patient care.
[2022-10-01] MEDS: atorvastatin 10mg tablet PO SCH (20:15)
[2022-10-01] MEDS: mirtazapine 15mg tablet PO SCH (20:15)
--- NOTE | 2022-10-01 21:14 | NUR ---
Pt up at side of bed, confused trying to get out of bed. Reoriented pt and placed back in bed. Tab alarm put on and bed alarm on.
[2022-10-02] VITALS (7 sets, daily range): BP systolic 110–155; BP diastolic 66–89
--- NOTE | 2022-10-02 04:44 | NUR ---
Bladder scanned pt for 200mL in bladder. Pt states she does not feel urge to void, however she did void 350mL in BSC approx 0245. Total urine output for day 500mL charted.
--- NOTE | 2022-10-02 05:43 | NUR ---
Stopped pt from getting out of bed to use BSC. Pt did not use call light, setting off tab alarm. Pt ended up having incontinent urine in bed. Sat pt up to BSC and changed bed linens. Cleaned pt, placed back in bed using sternal precautions. Advised pt to use call light when needing to use BSC and to not try to get out of bed by self.
--- NOTE | 2022-10-02 06:14 | NUR ---
Problems reprioritized. Patient report given, questions answered & plan of care reviewed with Luz.
--- NOTE | 2022-10-02 06:25 | NUR ---
Patient in room PCU 3026. I have received report from Swetha RAMIREZ and had the opportunity to ask questions and assume patient care.Pt C/O pain 11/28 Lyons 20mg po given. Addendum: 10/02/22 at 0732 by Luz Smith RN Amended: Links added.
[2022-10-02 06:35] LABS: BASOPHILS % (AUTO) 0.5 % (0-1); EOSINOPHILS # (AUTO) 0.4 X10'3 (0-0.9); EOSINOPHILS % (AUTO) 3.6 % (0-6); HEMATOCRIT 33.2 % (35.0-45.0); HEMOGLOBIN 10.2 g/dl (12.0-16.0); LYMPHOCYTES # (AUTO) 1.2 X10'3 (1.1-4.8); LYMPHOCYTES % (AUTO) 11.6 % (21-51); MEAN CORPUSCULAR HEMOGLOBIN 29.4 PG (27.0-31.0); MEAN CORPUSCULAR HGB CONC 30.8 g/dL (33.0-36.5); MEAN CORPUSCULAR VOLUME 95.6 FL (78-98); MEAN PLATELET VOLUME 7.7 FL (7.4-10.4); MONOCYTES # (AUTO) 1.1 X10'3 (0-0.9); MONOCYTES % (AUTO) 10.5 % (2-12); NEUTROPHILS # (AUTO) 7.8 X10'3 (1.8-7.7); NEUTROPHILS % (AUTO) 73.8 % (42-75); PLATELET COUNT 238 X10'3 (140-440); RED BLOOD COUNT 3.47 X10'6 (4.20-5.60); RED CELL DISTRIBUTION WIDTH 21.7 % (11.5-14.5); WHITE BLOOD COUNT 10.6 X10'3 (4.5-11.0)
[2022-10-02 06:51] LABS: ALBUMIN 2.3 G/DL (3.4-5.0); ANION GAP 9 (8-16); BLOOD UREA NITROGEN 22 MG/DL (7-18); BUN/CREATININE RATIO 22.2 (10.0-20.0); CALCIUM 8.4 MG/DL (8.5-10.1); CHLORIDE 109 MMOL/L (99-107); CREATININE 0.99 MG/DL (0.40-0.90); GLUCOSE 80 MG/DL (70-104); POTASSIUM 4.7 MMOL/L (3.5-5.1); SODIUM 140 MMOL/L (135-145); TOTAL CARBON DIOXIDE 21.8 MMOL/L (24-32); eGFR 56 ML/MIN
[2022-10-02] MEDS: HYDROcodone/acetaminophen 10/325mg tab PO PRN ×4 (07:03→20:12)
--- NOTE | 2022-10-02 07:25 | NUR ---
Problems reprioritized. Patient report given, questions answered & plan of care reviewed with Bang RAMOS. Addendum: 10/02/22 at 0732 by Luz Smith RN Amended: Links added.
[2022-10-02] MEDS: magnesium Cl slow-release 64mg tablet PO SCH ×2 (07:58→20:09)
[2022-10-02] MEDS: metoprolol tartrate 12.5mg (1/2 tablet) PO SCH ×2 (07:58→20:10)
[2022-10-02] MEDS: gabapentin 300mg capsule PO SCH (07:58)
[2022-10-02] MEDS: pantoprazole 40mg Tablet.DR PO SCH (07:58)
[2022-10-02] MEDS: sennosides/docusate sodium tablet PO SCH ×2 (07:58→20:10)
[2022-10-02] MEDS: duloxetine 30mg CAPSULE.DR PO SCH (07:59)
[2022-10-02] MEDS: aspirin 81mg tab.chew PO SCH (07:59)
[2022-10-02] MEDS: levoTHYROXINE 25mcg tablet PO SCH (07:59)
[2022-10-02] MEDS: buPROPion SR 100mg tab PO SCH ×2 (07:59→20:09)
[2022-10-02] MEDS: iron sucrose complex injection 200 MG in normal saline 100ml IV soln 100 ML IV SCH (08:00)
--- NOTE | 2022-10-02 13:01 | NUR ---
PT. TOOK OFF OXYGEN. DECIDED TO TRIAL TO SEE IF PT. NEEDS IT, AND PT. PULSE OX. WAS 87%, SO PUT PT. BACK ON 2L. WILL RETEST PULSE OX IN 10MIN
[2022-10-02] MEDS: JUVEN Smoothie Arginine/Glut./Ca2+Bmb (Juven 19.3pkt) 240ml cup PO SCH (18:10)
--- NOTE | 2022-10-02 18:34 | NUR ---
Problems reprioritized. Patient report given TO ZAIDA RAMOS, questions answered & plan of care reviewed with .
--- NOTE | 2022-10-02 18:37 | NUR ---
Patient in room PCU 3026. I have received report from Michel and had the opportunity to ask questions and assume patient care.
--- NOTE | 2022-10-02 18:41 | NUR ---
Orientee documentation: I have reviewed all interventions, assessments performed and documented by Vince RAMOS. [place] Medication Administration: For this medication-pass time frame, all medication were reviewed, dispensed, administered and documented per hospital policy by Vince RAMOS.
[2022-10-02] MEDS: mirtazapine 15mg tablet PO SCH (20:10)
[2022-10-02] MEDS: atorvastatin 10mg tablet PO SCH (20:10)
[2022-10-03 02:18] VITALS: BP 147/74
[2022-10-03] MEDS: HYDROcodone/acetaminophen 10/325mg tab PO PRN ×5 (02:31→23:58)
[2022-10-03 04:34] LABS: BASOPHILS # (AUTO) 0.2 X10'3 (0-0.2); BASOPHILS % (AUTO) 1.4 % (0-1); EOSINOPHILS # (AUTO) 0.4 X10'3 (0-0.9); EOSINOPHILS % (AUTO) 3.2 % (0-6); HEMATOCRIT 31.4 % (35.0-45.0); HEMOGLOBIN 9.8 g/dl (12.0-16.0); LYMPHOCYTES # (AUTO) 0.7 X10'3 (1.1-4.8); LYMPHOCYTES % (AUTO) 6.4 % (21-51); MEAN CORPUSCULAR HEMOGLOBIN 29.3 PG (27.0-31.0); MEAN CORPUSCULAR HGB CONC 31.1 g/dL (33.0-36.5); MEAN CORPUSCULAR VOLUME 94.1 FL (78-98); MONOCYTES # (AUTO) 1.2 X10'3 (0-0.9); MONOCYTES % (AUTO) 10.9 % (2-12); NEUTROPHILS # (AUTO) 8.9 X10'3 (1.8-7.7); NEUTROPHILS % (AUTO) 78.1 % (42-75); PLATELET COUNT 297 X10'3 (140-440); RED BLOOD COUNT 3.34 X10'6 (4.20-5.60); RED CELL DISTRIBUTION WIDTH 21.6 % (11.5-14.5); WHITE BLOOD COUNT 11.4 X10'3 (4.5-11.0)
[2022-10-03 04:40] LABS: ALBUMIN 2.2 G/DL (3.4-5.0); ANION GAP 11 (8-16); BLOOD UREA NITROGEN 21 MG/DL (7-18); BUN/CREATININE RATIO 22.8 (10.0-20.0); CALCIUM 8.5 MG/DL (8.5-10.1); CHLORIDE 108 MMOL/L (99-107); CREATININE 0.92 MG/DL (0.40-0.90); GLUCOSE 93 MG/DL (70-104); POTASSIUM 4.9 MMOL/L (3.5-5.1); SODIUM 140 MMOL/L (135-145); TOTAL CARBON DIOXIDE 21.4 MMOL/L (24-32); eGFR 61 ML/MIN
--- NOTE | 2022-10-03 06:30 | NUR ---
Patient in room PCU 3026. I have received report from Jim RAMOS and had the opportunity to ask questions and assume patient care.
--- NOTE | 2022-10-03 06:59 | NUR ---
Patient in room PCU 3026. I have received report from ZAIDA RAMOS and had the opportunity to ask questions and assume patient care.
--- NOTE | 2022-10-03 07:01 | NUR ---
Problems reprioritized. Patient report given, questions answered & plan of care reviewed with Bang.
[2022-10-03 07:08] VITALS: BP 147/80
[2022-10-03 07:29] LABS: NUCLEATED RED BLOOD CELLS 1 /100WBC (0-0); TOTAL CELLS COUNTED 100
[2022-10-03 07:31] LABS: ACANTHOCYTES FEW; ANISOCYTOSIS 3+; BURR CELLS FEW; ELLIPTOCYTES FEW; HYPOCHROMASIA 1+; PLATELET ESTIMATE NORMAL; POLYCHROMASIA FEW; TEAR DROP CELLS FEW
[2022-10-03] MEDS: magnesium Cl slow-release 64mg tablet PO SCH ×2 (08:32→20:12)
[2022-10-03] MEDS: gabapentin 300mg capsule PO SCH (08:33)
[2022-10-03] MEDS: sennosides/docusate sodium tablet PO SCH ×2 (08:33→20:15)
[2022-10-03] MEDS: levoTHYROXINE 25mcg tablet PO SCH (08:33)
[2022-10-03] MEDS: duloxetine 30mg CAPSULE.DR PO SCH (08:33)
[2022-10-03] MEDS: iron sucrose complex injection 200 MG in normal saline 100ml IV soln 100 ML IV SCH (08:34)
[2022-10-03] MEDS: buPROPion SR 100mg tab PO SCH ×2 (08:34→20:12)
[2022-10-03] MEDS: pantoprazole 40mg Tablet.DR PO SCH (08:34)
[2022-10-03] MEDS: metoprolol tartrate 12.5mg (1/2 tablet) PO SCH ×2 (08:34→20:14)
[2022-10-03] MEDS: aspirin 81mg tab.chew PO SCH (08:38)
[2022-10-03 12:26] VITALS: BP 139/79
--- NOTE | 2022-10-03 12:42 | NUR ---
PT. DID NOT WANT TO GET OUT OF BED TODAY AT THIS TIME, REQUESTED TO ASK AGAIN AFTER EATING.
--- NOTE | 2022-10-03 13:05 | NUR ---
JACKIE RAMOS U, 2596, RE: [id number] PT. COMPLAINING OF SOB AT THIS TIME AND WOULD LIKE NEBULE TREATMENT (IPATROPIUM) A PRN ORDER. THANKS
[2022-10-03] MEDS: JUVEN Smoothie Arginine/Glut./Ca2+Bmb (Juven 19.3pkt) 240ml cup PO SCH ×2 (13:21→17:30)
[2022-10-03] MEDS: ipratropium 0.5 MG/2.5ML nebule IH PRN (13:33)
[2022-10-03 16:17] VITALS: BP 163/80
[2022-10-03 18:00] VITALS: BP 150/95
--- NOTE | 2022-10-03 18:37 | NUR ---
Problems reprioritized. Patient report given TO KIRT RAMOS, questions answered & plan of care reviewed with .
[2022-10-03] MEDS ORDERED: furosemide 40mg/4ml inj IV SCH (20:00)
[2022-10-03] MEDS: mirtazapine 15mg tablet PO SCH (20:11)
[2022-10-03] MEDS: atorvastatin 10mg tablet PO SCH (20:13)
[2022-10-03 22:00] VITALS: BP 121/70
[2022-10-04 02:00] VITALS: BP 151/89
[2022-10-04] MEDS: HYDROcodone/acetaminophen 10/325mg tab PO PRN ×4 (05:58→20:04)
[2022-10-04 06:00] VITALS: BP 147/83
[2022-10-04 06:20] LABS: ALBUMIN 2.3 G/DL (3.4-5.0); ANION GAP 12 (8-16); BLOOD UREA NITROGEN 21 MG/DL (7-18); BUN/CREATININE RATIO 22.8 (10.0-20.0); CALCIUM 8.3 MG/DL (8.5-10.1); CHLORIDE 109 MMOL/L (99-107); CREATININE 0.92 MG/DL (0.40-0.90); GLUCOSE 88 MG/DL (70-104); POTASSIUM 4.4 MMOL/L (3.5-5.1); SODIUM 143 MMOL/L (135-145); TOTAL CARBON DIOXIDE 22.5 MMOL/L (24-32); eGFR 61 ML/MIN
--- NOTE | 2022-10-04 06:34 | NUR ---
Problems reprioritized. Patient report given, questions answered & plan of care reviewed with Tita.
--- NOTE | 2022-10-04 06:57 | NUR ---
Patient in room PCU 3026. I have received report from RICHARD Ibrahim, and had the opportunity to ask questions and assume patient care. Pt resting comfortably. Will continue to monitor.
[2022-10-04] MEDS: duloxetine 30mg CAPSULE.DR PO SCH (09:29)
[2022-10-04] MEDS: buPROPion SR 100mg tab PO SCH ×2 (09:30→20:04)
[2022-10-04] MEDS: gabapentin 300mg capsule PO SCH (09:30)
[2022-10-04] MEDS: metoprolol tartrate 12.5mg (1/2 tablet) PO SCH ×2 (09:31→20:04)
[2022-10-04] MEDS: magnesium Cl slow-release 64mg tablet PO SCH ×2 (09:31→20:04)
[2022-10-04] MEDS: aspirin 81mg tab.chew PO SCH (09:31)
[2022-10-04] MEDS: sennosides/docusate sodium tablet PO SCH ×2 (09:31→20:05)
[2022-10-04] MEDS: pantoprazole 40mg Tablet.DR PO SCH (09:32)
[2022-10-04] MEDS: levoTHYROXINE 25mcg tablet PO SCH (09:32)
[2022-10-04] MEDS: furosemide 40mg tablet PO SCH ×2 (09:32→20:05)
--- NOTE | 2022-10-04 11:51 | NUR ---
F/u 10/04: Pt PO continues to fluctuate ~44% avg NCS diet and ~80% past 7 Delta smoothies meeting ~94% kcal and ~78% protein estimated needs. Of note, pt AOx2/confused w/ thick/dry tongue per EMR; likely influencing PO. RD recommends Ensure High Protein WB to better meet protein needs given good ONS acceptance- PA approved in EMR dietary notified. RD d/w RN recommends routine MVM w/ Fe, B12, calcium citrate TID, and vitamin D if MD agreeable given hx gastric bypass w/ fluctuating intake in case true hx was more than just vertical sleeve. Large BM 10/02 per EMR. Will continue to follow. Recommendations: 1. Continue no concentrated sweets diet 2. [place]-banana Delta smoothie BIDLD; Ensure High Protein WB for wound healing 3. Encourage PO intake and assist with meals while pt with decreased mentation 4. Consider routine MVM with Iron, B12, vitamin D3, and calcium citrate TID given hx gastric bypass unknown if vertical sleeve vs true bypass- per physician discretion 5. Routine bowel care; utilize PRN bowel care 6. Daily scaled weights per rx Addendum: 10/04/22 at [address] Amended: Links added.
[2022-10-04 12:00] VITALS: BP 156/90
[2022-10-04] MEDS: JUVEN Smoothie Arginine/Glut./Ca2+Bmb (Juven 19.3pkt) 240ml cup PO SCH ×2 (12:30→17:42)
[2022-10-04 16:00] VITALS: BP 131/74
--- NOTE | 2022-10-04 16:03 | NUR ---
Patient in room PCU 3026. I have received report from Tita RAMOS and had the opportunity to ask questions and assume patient care.
--- NOTE | 2022-10-04 16:07 | NUR ---
Problems reprioritized. Patient report given, questions answered & plan of care reviewed with ASHLEY DAVIS.
[2022-10-04 18:00] VITALS: BP 114/69
--- NOTE | 2022-10-04 18:23 | NUR ---
Problems reprioritized. Patient report given, questions answered & plan of care reviewed with Eva RAMOS.
[2022-10-04] MEDS: ipratropium 0.5 MG/2.5ML nebule IH PRN (19:18)
[2022-10-04] MEDS: atorvastatin 10mg tablet PO SCH (20:07)
[2022-10-04] MEDS: mirtazapine 15mg tablet PO SCH (20:07)
[2022-10-04 22:00] VITALS: BP 147/80
[2022-10-05] VITALS (8 sets, daily range): BP systolic 126–167; BP diastolic 77–101
[2022-10-05] MEDS: HYDROcodone/acetaminophen 10/325mg tab PO PRN ×4 (03:20→17:41)
--- NOTE | 2022-10-05 06:26 | NUR ---
Problems reprioritized. Patient report given, questions answered & plan of care reviewed with Claudia.
--- NOTE | 2022-10-05 07:06 | NUR ---
Patient in room PCU 3026. I have received report from RICHARD CASTELLANOS, and had the opportunity to ask questions and assume patient care.
[2022-10-05] MEDS: lactose-reduced food (Ensure High Protein) 237ml bottle PO SCH (07:30)
[2022-10-05 07:40] LABS: ALBUMIN 2.3 G/DL (3.4-5.0); ANION GAP 9 (8-16); BLOOD UREA NITROGEN 19 MG/DL (7-18); BUN/CREATININE RATIO 19.4 (10.0-20.0); CHLORIDE 107 MMOL/L (99-107); CREATININE 0.98 MG/DL (0.40-0.90); GLUCOSE 87 MG/DL (70-104); POTASSIUM 3.9 MMOL/L (3.5-5.1); SODIUM 142 MMOL/L (135-145); TOTAL CARBON DIOXIDE 26.4 MMOL/L (24-32); eGFR 57 ML/MIN
[2022-10-05] MEDS: levoTHYROXINE 25mcg tablet PO SCH (07:54)
[2022-10-05] MEDS: magnesium Cl slow-release 64mg tablet PO SCH ×2 (07:54→20:47)
[2022-10-05] MEDS: pantoprazole 40mg Tablet.DR PO SCH (07:55)
[2022-10-05] MEDS: buPROPion SR 100mg tab PO SCH ×2 (07:55→20:47)
[2022-10-05] MEDS: duloxetine 30mg CAPSULE.DR PO SCH (07:55)
[2022-10-05] MEDS: gabapentin 300mg capsule PO SCH (07:56)
[2022-10-05] MEDS: sennosides/docusate sodium tablet PO SCH ×2 (07:56→20:46)
[2022-10-05] MEDS: metoprolol tartrate 12.5mg (1/2 tablet) PO SCH ×2 (07:56→20:47)
[2022-10-05] MEDS: furosemide 40mg tablet PO SCH ×2 (07:56→20:46)
[2022-10-05] MEDS: aspirin 81mg tab.chew PO SCH (07:56)
[2022-10-05 10:23] LABS: BASOPHILS # (AUTO) 0.1 X10'3 (0-0.2); EOSINOPHILS # (AUTO) 0.4 X10'3 (0-0.9); EOSINOPHILS % (AUTO) 3.6 % (0-6); HEMATOCRIT 35.3 % (35.0-45.0); LYMPHOCYTES # (AUTO) 1.6 X10'3 (1.1-4.8); LYMPHOCYTES % (AUTO) 14.5 % (21-51); MEAN CORPUSCULAR HEMOGLOBIN 29.4 PG (27.0-31.0); MEAN CORPUSCULAR VOLUME 94.8 FL (78-98); MEAN PLATELET VOLUME 8.2 FL (7.4-10.4); MONOCYTES # (AUTO) 1.4 X10'3 (0-0.9); MONOCYTES % (AUTO) 12.4 % (2-12); NEUTROPHILS # (AUTO) 7.7 X10'3 (1.8-7.7); NEUTROPHILS % (AUTO) 68.5 % (42-75); PLATELET COUNT 389 X10'3 (140-440); RED BLOOD COUNT 3.72 X10'6 (4.20-5.60); RED CELL DISTRIBUTION WIDTH 22.1 % (11.5-14.5); WHITE BLOOD COUNT 11.3 X10'3 (4.5-11.0)
[2022-10-05] MEDS: lisinopril 10 MG tablet PO SCH (10:49)
[2022-10-05] MEDS ORDERED: levoFLOXACIN 500mg tablet PO SCH (11:00)
[2022-10-05 11:05] LABS: TOTAL CELLS COUNTED 100
[2022-10-05 11:06] LABS: ANISOCYTOSIS 3+; PLATELET ESTIMATE NORMAL
[2022-10-05 11:07] LABS: HYPOCHROMASIA 1+; POIKILOCYTOSIS 1+
[2022-10-05] MEDS ORDERED: diphenhydrAMINE 25mg capsule PO PRN (12:10)
--- NOTE | 2022-10-05 12:11 | NUR ---
PT C/O OF "BIG TONGUE", ON ASSESSMENT PT'S SPEECH WAS IMPEDED AND HER TONGUE WAS ENLARGED. NOTIFIED ELIZABETH CERDA RECEIVED AND ENTERED ORDER FOR BENADRYL PO 25MG, Q6HR PRN.
[2022-10-05] MEDS: JUVEN Smoothie Arginine/Glut./Ca2+Bmb (Juven 19.3pkt) 240ml cup PO SCH ×2 (12:30→17:30)
--- NOTE | 2022-10-05 14:53 | NUR ---
Pt is up and walking with PT, Kierra RAMOS
--- NOTE | 2022-10-05 18:42 | NUR ---
Problems reprioritized. Patient report given, questions answered & plan of care reviewed with RICHARD CASTELLANOS.
[2022-10-05] MEDS: atorvastatin 10mg tablet PO SCH (20:46)
[2022-10-05] MEDS: mirtazapine 15mg tablet PO SCH (20:47)
[2022-10-06] MEDS: HYDROcodone/acetaminophen 10/325mg tab PO PRN ×4 (00:02→16:01)
[2022-10-06 02:00] VITALS: BP 123/70
[2022-10-06 06:00] VITALS: BP 148/84
--- NOTE | 2022-10-06 06:32 | NUR ---
Patient in room PCU 3026. I have received report from Eva RAMOS and had the opportunity to ask questions and assume patient care.
--- NOTE | 2022-10-06 06:49 | NUR ---
Problems reprioritized. Patient report given, questions answered & plan of care reviewed with Brooklyn
[2022-10-06] MEDS: gabapentin 300mg capsule PO SCH (07:14)
[2022-10-06] MEDS: buPROPion SR 100mg tab PO SCH (07:14)
[2022-10-06] MEDS: sennosides/docusate sodium tablet PO SCH (07:15)
[2022-10-06] MEDS: levoTHYROXINE 25mcg tablet PO SCH (07:15)
[2022-10-06] MEDS: magnesium Cl slow-release 64mg tablet PO SCH (07:16)
[2022-10-06] MEDS: pantoprazole 40mg Tablet.DR PO SCH (07:16)
[2022-10-06] MEDS: metoprolol tartrate 12.5mg (1/2 tablet) PO SCH (07:16)
[2022-10-06] MEDS: duloxetine 30mg CAPSULE.DR PO SCH (07:16)
[2022-10-06] MEDS: furosemide 40mg tablet PO SCH (07:17)
[2022-10-06] MEDS: lisinopril 10 MG tablet PO SCH (07:17)
[2022-10-06] MEDS: lactose-reduced food (Ensure High Protein) 237ml bottle PO SCH (07:30)
[2022-10-06 07:53] LABS: ALBUMIN 2.1 G/DL (3.4-5.0); ANION GAP 9 (8-16); BLOOD UREA NITROGEN 21 MG/DL (7-18); BUN/CREATININE RATIO 22.1 (10.0-20.0); CALCIUM 7.8 MG/DL (8.5-10.1); CHLORIDE 105 MMOL/L (99-107); CREATININE 0.95 MG/DL (0.40-0.90); GLUCOSE 75 MG/DL (70-104); SODIUM 139 MMOL/L (135-145); TOTAL CARBON DIOXIDE 25.2 MMOL/L (24-32); eGFR 59 ML/MIN
[2022-10-06 07:54] LABS: POTASSIUM 3.9 MMOL/L (3.5-5.1)
[2022-10-06] MEDS: aspirin 81mg tab.chew PO SCH (08:31)
[2022-10-06 11:00] VITALS: BP 142/76
[2022-10-06] MEDS ORDERED: levoFLOXACIN 250mg tablet PO SCH (11:00)
[2022-10-06] MEDS: JUVEN Smoothie Arginine/Glut./Ca2+Bmb (Juven 19.3pkt) 240ml cup PO SCH (12:40)
--- NOTE | 2022-10-06 14:55 | NUR ---
Patient will be discharging back to [facility] today. I called in report to Gracy Metz LVN at [facility]. I gave her patients current status and answered all questions.
--- NOTE | 2022-10-06 17:15 | NUR ---
Patient discharged to [facility]. Removed telebox and IV and returned telebox to [facility]. She left in medical transport with all belongings. No c/o pain or discomfort upon discharge.
== END 2022-10-06 17:21 | DRG 216 ==
LOC: ER 13:49 → ED HOLD 19:51 → PCU 3S 09-20 08:00 → ICU 2S 09-26 08:35 → PCU 3S 10-01 16:58
PROVIDERS: ADMIT Internal Medicine; ATTEND Family Medicine
PROC: 4A02XM4 Measurement of Cardiac Total Activity, External Approach (ICD-10-PCS; 2022-09-19)
PROC: 3E073KZ Introduction of Other Diagnostic Substance into Coronary Artery, Percutaneous Approach (ICD-10-PCS; 2022-09-19)
PROC: 4A023N8 Measurement of Cardiac Sampling and Pressure, Bilateral, Percutaneous Approach (ICD-10-PCS; 2022-09-23)
PROC: B2111ZZ Fluoroscopy of Multiple Coronary Arteries using Low Osmolar Contrast (ICD-10-PCS; 2022-09-23)
PROC: B2151ZZ Fluoroscopy of Left Heart using Low Osmolar Contrast (ICD-10-PCS; 2022-09-23)
PROC: B41F1ZZ Fluoroscopy of Right Lower Extremity Arteries using Low Osmolar Contrast (ICD-10-PCS; 2022-09-23)
PROC: 02UJ08Z Supplement Tricuspid Valve with Zooplastic Tissue, Open Approach (ICD-10-PCS; 2022-09-26)
PROC: 02L70CK Occlusion of Left Atrial Appendage with Extraluminal Device, Open Approach (ICD-10-PCS; 2022-09-26)
PROC: 5A1221Z Performance of Cardiac Output, Continuous (ICD-10-PCS; 2022-09-26)
PROC: 30233N1 Transfusion of Nonautologous Red Blood Cells into Peripheral Vein, Percutaneous Approach (ICD-10-PCS; 2022-09-26)
PROC: 02HV33Z Insertion of Infusion Device into Superior Vena Cava, Percutaneous Approach (ICD-10-PCS; 2022-09-26)
PROC: B548ZZA Ultrasonography of Superior Vena Cava, Guidance (ICD-10-PCS; 2022-09-26)
PROC: 03HY32Z Insertion of Monitoring Device into Upper Artery, Percutaneous Approach (ICD-10-PCS; 2022-09-26)
PROC: 02UG08Z Supplement Mitral Valve with Zooplastic Tissue, Open Approach (ICD-10-PCS; principal; 2022-09-26 07:46)
DX: I08.1 Rheumatic disorders of both mitral and tricuspid valves (principal); J81.0 Acute pulmonary edema; E87.20 Acidosis, unspecified; I13.0 Hypertensive heart and chronic kidney disease with heart failure and stage 1 through stage 4 chronic kidney disease, or unspecified chronic kidney disease; I50.32 Chronic diastolic (congestive) heart failure; I42.9 Cardiomyopathy, unspecified; I48.92 Unspecified atrial flutter; N17.9 Acute kidney failure, unspecified; E03.9 Hypothyroidism, unspecified; E11.22 Type 2 diabetes mellitus with diabetic chronic kidney disease; G47.00 Insomnia, unspecified; E11.40 Type 2 diabetes mellitus with diabetic neuropathy, unspecified; F41.9 Anxiety disorder, unspecified; G43.909 Migraine, unspecified, not intractable, without status migrainosus; K21.9 Gastro-esophageal reflux disease without esophagitis; E86.0 Dehydration; D64.9 Anemia, unspecified; E87.5 Hyperkalemia; M54.9 Dorsalgia, unspecified; I95.9 Hypotension, unspecified; M79.661 Pain in right lower leg; R31.29 Other microscopic hematuria; Z96.651 Presence of right artificial knee joint; M79.605 Pain in left leg; F32.A Depression, unspecified; G89.4 Chronic pain syndrome; I48.0 Paroxysmal atrial fibrillation; J44.9 Chronic obstructive pulmonary disease, unspecified; N18.30 Chronic kidney disease, stage 3 unspecified; R09.02 Hypoxemia; Z79.01 Long term (current) use of anticoagulants; Z87.891 Personal history of nicotine dependence; Z79.899 Other long term (current) drug therapy; Z82.49 Family history of ischemic heart disease and other diseases of the circulatory system; Z83.3 Family history of diabetes mellitus
CPT/HCPCS: 36415; 36430; 36600; 71045; 71046; 76770; 78452; 80048; 80053; 80069; 80162; 81001; 82330; 82435; 82570; 82728; 82803; 82947; 82948; 83036; 83540; 83550; 83605; 83735; 83880; 84100; 84132; 84295; 84300; 84484; 85007; 85008; 85018; 85025; 85347; 85384; 85610; 85730; 86885; 86900; 86901; 86920; 87040; 87070; 87081; 87088; 93005; 93017; 93306; 93308; 93312; 93325; 93460; 93880; 93970; 93971; 94002; 94640; 94760; 97110; 97116; 97161; 97530; 97535; 99152; 99153; 99285; A4615; A4618; A5200; A6154; A6209; A6212; A6213; A6222; A6223; A6258; A6446; A6449; A7000; A7048; A9500; C1713; C1751; C1760; C1769; G0378; J0171; J0690; J1160; J1250; J1644; J1650; J1756; J1815; J1940; J2060; J2150; J2250; J2270; J2405; J2704; J2720; J2785; J2930; J3010; J3370; J3430; J3475; J3480; J3490; J7030; J7040; J7050; J7120; P9016; P9045; P9047; Q0163; Q0177; Q9967

== ENCOUNTER 2022-10-21 14:33 | Inpatient (IN) | payer BC ==
[~2022-10-21] VITALS: Ht 162.6 cm; Wt 63.6 kg
[~2022-10-21 14:33] MED LIST changes: +EMPA10TA PO; -SOTA80TA46 PO
[2022-10-21 14:57] LABS: BASOPHILS # (AUTO) 0.1 X10'3 (0-0.2); BASOPHILS % (AUTO) 0.9 % (0-1); EOSINOPHILS # (AUTO) 0.6 X10'3 (0-0.9); EOSINOPHILS % (AUTO) 5.5 % (0-6); HEMATOCRIT 22.2 % (35.0-45.0); LYMPHOCYTES % (AUTO) 18.5 % (21-51); MEAN CORPUSCULAR HEMOGLOBIN 30.4 PG (27.0-31.0); MEAN CORPUSCULAR HGB CONC 31.5 g/dL (33.0-36.5); MEAN CORPUSCULAR VOLUME 96.6 FL (78-98); MEAN PLATELET VOLUME 7.2 FL (7.4-10.4); MONOCYTES # (AUTO) 1.2 X10'3 (0-0.9); MONOCYTES % (AUTO) 10.9 % (2-12); NEUTROPHILS % (AUTO) 64.2 % (42-75); PLATELET COUNT 411 X10'3 (140-440); RED CELL DISTRIBUTION WIDTH 20.5 % (11.5-14.5); WHITE BLOOD COUNT 10.9 X10'3 (4.5-11.0)
[2022-10-21] MEDS ORDERED: normal saline 1000ML IV soln IV ONE (15:05)
[2022-10-21 15:11] LABS: ALANINE AMINOTRANSFERASE 22 U/L (12-78); ALBUMIN 2.4 G/DL (3.4-5.0); ALBUMIN/GLOBULIN RATIO 0.7 (1.1-1.5); ALKALINE PHOSPHATASE 272 IU/L (46-116); ANION GAP 8 (8-16); ASPARTATE AMINO TRANSFERASE 38 U/L (10-37); BILIRUBIN,TOTAL 0.6 MG/DL (0.1-1.0); BLOOD UREA NITROGEN 25 MG/DL (7-18); BUN/CREATININE RATIO 17.5 (10.0-20.0); CALCIUM 7.7 MG/DL (8.5-10.1); CHLORIDE 103 MMOL/L (99-107); CREATININE 1.43 MG/DL (0.40-0.90); GLUCOSE 84 MG/DL (70-104); POTASSIUM 3.8 MMOL/L (3.5-5.1); SODIUM 135 MMOL/L (135-145); TOTAL CARBON DIOXIDE 23.7 MMOL/L (24-32); TOTAL PROTEIN 5.8 G/DL (6.4-8.2); eCRCL 33 ML/MIN; eGFR 37 ML/MIN
[2022-10-21 15:18] LABS: PRO BRAIN NATRIURETIC PEPTIDE 5616 PG/ML (0-125)
[2022-10-21 15:19] LABS: ANISOCYTOSIS 3+; HYPOCHROMASIA 1+; PLATELET ESTIMATE NORMAL; POIKILOCYTOSIS 1+
[2022-10-21 15:20] LABS: POLYCHROMASIA FEW; SCHISTOCYTES FEW
[2022-10-21 15:59] LABS: BILIRUBIN,URINE NEGATIVE (Neg); CLARITY,URINE CLOUDY (Clear); COLOR,URINE YELLOW (Yellow); GLUCOSE, URINE 100 mg/dl (Neg); KETONES,URINE NEGATIVE (Neg); LEUKOCYTE ESTERASE ,URINE TRACE (Neg); NITRITES, URINE NEGATIVE (Neg); OCCULT BLOOD,URINE NEGATIVE (Neg); PROTEIN,URINE NEGATIVE (Neg); UROBILINOGEN,URINE 0.2 E.U/dL (0.2-1.0)
[2022-10-21 16:13] LABS: UA COLLECTION TYPE VOIDED
[2022-10-21 16:14] LABS: SQUAMOUS EPITHELIAL CELL,UR MANY /LPF (FEW)
[2022-10-21 16:19] LABS: BACTERIA,URINE FEW /HPF (Neg); RBC,URINE 0-2 /HPF (0-2); TRANSITIONAL EPI CELLS,URINE FEW /HPF; YEAST MANY /HPF (NEGATIVE)
[2022-10-21] MEDS ORDERED: pantoprazole 40mg IV 80 MG in normal saline 100ml IV soln 100 ML IV ONE (16:25)
[2022-10-21] MEDS ORDERED: ondansetron/PF 4mg/2ml inj IV PRN (16:35)
[2022-10-21] MEDS ORDERED: magnesium 4gm in 100ml NS 100 ML IV PRN (16:35)
[2022-10-21] MEDS ORDERED: acetaminophen 325mg tablet PO PRN (16:35)
[2022-10-21] MEDS ORDERED: potassium Cl 40MEQ/1/2NS 520ml 520 ML IV PRN (16:35)
[2022-10-21] MEDS ORDERED: morphine 2 MG/ML inj. syringe IV PRN (16:35)
[2022-10-21] MEDS ORDERED: potassium Cl 20 mEq SR tablet PO PRN ×2 (16:35)
[2022-10-21] MEDS: normal saline 1000ml 1,000 ML IV SCH (17:02)
[2022-10-21 17:24] LABS: APTT 56 SECONDS (22-32); INR 2.3 INR; PROTHROMBIN TIME 23.5 SECONDS (9.0-12.0)
[2022-10-21] MEDS ORDERED: LAMO25TA5 PO (17:28)
[2022-10-21] MEDS ORDERED: WARF2.5T82 PO (17:28)
[2022-10-21] MEDS ORDERED: CYCL-1 PO (17:28)
[2022-10-21] MEDS ORDERED: LEVO75TA7 PO (17:28)
[2022-10-21] MEDS ORDERED: METO25TA6 PO (17:28)
[2022-10-21] MEDS ORDERED: BUPR200T30 PO (17:28)
[2022-10-21] MEDS ORDERED: ATOR10TA70 PO (17:28)
[2022-10-21] MEDS ORDERED: PERFLUTREN PROTEIN-A MICROSPHR (Optison) 0.22 MG/ML 3ML VIAL IV ONE (17:30)
[2022-10-21 18:38] VITALS: BP 70/42; PULSE 74; RESP 13; TEMP 98.7
--- NOTE | 2022-10-21 18:46 | NUR ---
DR SOTO NOTIFIED THAT PT CONTINUES TO BE HYPOTENSIVE WITH SYSTOLIC BP OF 70. BLOOD TRANSFUSION BEING STARTED. PT DOES COMPLAIN OF SOME STERNAL CHEST PAIN AFTER ECHO, COULD BE CHEST WALL PAIN BUT GIVEN PTS SYMPTOMS AND CARDIAC HX, EKG TO BE OBTAINED STAT. NO OTHER NEW ORDERS AT THIS TIME
[2022-10-21 19:05] VITALS: BP 79/42; PULSE 77; RESP 12; TEMP 98.5
--- NOTE | 2022-10-21 19:18 | NUR ---
PT PROVIDED WITH CLEAN BRIEF AND PURE WICK
[2022-10-21] MEDS: docusate sod 100mg capsule PO SCH (20:00)
[2022-10-21] MEDS: K and/or MAG REPLACEMENT MC SCH (20:00)
[2022-10-21 20:05] VITALS: BP 83/36; PULSE 77; RESP 19; TEMP 98.1
[2022-10-21] MEDS ORDERED: pantoprazole 40MG/NS 100ML BAG 100 ML IV SCH (21:00)
[2022-10-21] MEDS: pantoprazole 40MG/NS 100ML BAG 100 ML IV SCH (21:15)
--- NOTE | 2022-10-21 22:08 | NUR ---
SPOKE WITH MD REGARDING BP OF 79/49. MD TO PUT IN ORDERS
[2022-10-21] MEDS ORDERED: tranexamic acid inj. 1,000 MG in normal saline 100ml IV soln 90 ML IV ONE (22:15)
[2022-10-21] MEDS ORDERED: phytonadione inj. 5 MG in normal saline 100ml IV soln 100 ML IV ONE (22:15)
[2022-10-21] MEDS ORDERED: tranexamic acid 100mg/ml inj. ONE (22:52)
[2022-10-21] MEDS ORDERED: phytonadione 10 MG/1 ML amp ONE (22:52)
[2022-10-21] MEDS: normal saline 500ml IV soln 500 ML IV SCH (22:53)
--- NOTE | 2022-10-21 23:23 | NUR ---
[facility] CONTACT [facility] [phone]
[2022-10-21 23:57] VITALS: BP 80/41; PULSE 75; RESP 13; TEMP 98.5
[2022-10-22] VITALS (15 sets, daily range): BP systolic 86–112; BP diastolic 47–60; PULSE 73–84; RESP 12–17; TEMP 97.2–98.7; O2SAT 98–100
[2022-10-22 00:08] LABS: HEMATOCRIT 22.6 % (35.0-45.0); HEMOGLOBIN 7.6 g/dl (12.0-16.0); MEAN CORPUSCULAR HEMOGLOBIN 31.4 PG (27.0-31.0); MEAN CORPUSCULAR HGB CONC 33.4 g/dL (33.0-36.5); PLATELET COUNT 363 X10'3 (140-440); RED BLOOD COUNT 2.41 X10'6 (4.20-5.60); RED CELL DISTRIBUTION WIDTH 20.3 % (11.5-14.5); WHITE BLOOD COUNT 9.5 X10'3 (4.5-11.0)
[2022-10-22] MEDS: normal saline 500ml IV soln 500 ML IV SCH ×5 (00:23→08:15)
[2022-10-22] MEDS: pantoprazole 40MG/NS 100ML BAG 100 ML IV SCH ×5 (02:54→22:02)
[2022-10-22] MEDS: normal saline 1000ml 1,000 ML IV SCH (05:17)
[2022-10-22] MEDS ORDERED: NORepinephrine 8mg/ 250ml NS 250 ML IV SCH (05:20)
[2022-10-22] MEDS: morphine 2 MG/ML inj. syringe IV PRN ×4 (06:51→19:41)
[2022-10-22] MEDS: K and/or MAG REPLACEMENT MC SCH ×2 (07:31→20:00)
[2022-10-22] MEDS: docusate sod 100mg capsule PO SCH ×2 (07:35→19:39)
[2022-10-22 07:40] LABS: HEMATOCRIT 26.2 % (35.0-45.0); HEMOGLOBIN 8.5 g/dl (12.0-16.0); MEAN CORPUSCULAR HEMOGLOBIN 29.9 PG (27.0-31.0); MEAN CORPUSCULAR HGB CONC 32.4 g/dL (33.0-36.5); MEAN CORPUSCULAR VOLUME 92.3 FL (78-98); MEAN PLATELET VOLUME 7.2 FL (7.4-10.4); PLATELET COUNT 417 X10'3 (140-440); RED BLOOD COUNT 2.84 X10'6 (4.20-5.60); RED CELL DISTRIBUTION WIDTH 20.6 % (11.5-14.5); WHITE BLOOD COUNT 11.2 X10'3 (4.5-11.0)
[2022-10-22 08:14] LABS: ALANINE AMINOTRANSFERASE 21 U/L (12-78); ALBUMIN 2.5 G/DL (3.4-5.0); ALBUMIN/GLOBULIN RATIO 0.8 (1.1-1.5); ALKALINE PHOSPHATASE 268 IU/L (46-116); ANION GAP 12 (8-16); ASPARTATE AMINO TRANSFERASE 31 U/L (10-37); BLOOD UREA NITROGEN 21 MG/DL (7-18); BUN/CREATININE RATIO 19.8 (10.0-20.0); CALCIUM 7.8 MG/DL (8.5-10.1); CHLORIDE 106 MMOL/L (99-107); CREATININE 1.06 MG/DL (0.40-0.90); GLUCOSE 81 MG/DL (70-104); POTASSIUM 3.7 MMOL/L (3.5-5.1); SODIUM 137 MMOL/L (135-145); TOTAL CARBON DIOXIDE 18.9 MMOL/L (24-32); TOTAL PROTEIN 5.7 G/DL (6.4-8.2); eCRCL 45 ML/MIN; eGFR 52 ML/MIN
[2022-10-22 08:22] LABS: INR 1.3 INR; PROTHROMBIN TIME 13.7 SECONDS (9.0-12.0)
--- NOTE | 2022-10-22 08:45 | NUR ---
norepinephrine was titrated down by rocio.
--- NOTE | 2022-10-22 09:40 | NUR ---
TITRATED NOREPI TO 0.[address] NARAYAN VERBAL ORDER. VERBAL ORDER TO TITRATE TO MAINTAIN MAP >60.
[2022-10-22] MEDS: normal saline 1000ml 500 ML IV SCH ×5 (09:54→23:14)
[2022-10-22] MEDS ORDERED: normal saline 1000ml 1,000 ML IV ONE (09:55)
--- NOTE | 2022-10-22 10:42 | NUR ---
stopped the norepinephrine drip per dr rice verbal order, will monitor pt bp status
--- NOTE | 2022-10-22 12:33 | NUR ---
to gi lab
[2022-10-22] MEDS ORDERED: MIDAZolam 1 MG/ML 5ML VIAL ONE (13:17)
[2022-10-22] MEDS ORDERED: fentaNYL/PF 50MCG/1 ML 2ML syringe ONE (13:17)
[2022-10-22] MEDS ORDERED: LIDOcaine Viscous 15ml cup ONE (13:26)
[2022-10-22 16:35] LABS: HEMATOCRIT 24.8 % (35.0-45.0); HEMOGLOBIN 8.1 g/dl (12.0-16.0); MEAN CORPUSCULAR HEMOGLOBIN 30.7 PG (27.0-31.0); MEAN CORPUSCULAR HGB CONC 32.7 g/dL (33.0-36.5); MEAN CORPUSCULAR VOLUME 93.6 FL (78-98); MEAN PLATELET VOLUME 7.1 FL (7.4-10.4); PLATELET COUNT 363 X10'3 (140-440); RED BLOOD COUNT 2.65 X10'6 (4.20-5.60); RED CELL DISTRIBUTION WIDTH 21.1 % (11.5-14.5); WHITE BLOOD COUNT 8.9 X10'3 (4.5-11.0)
--- NOTE | 2022-10-22 18:18 | NUR ---
Problems reprioritized. Patient report given, questions answered & plan of care reviewed with Nora. Addendum: 10/22/22 at 1819 by Derick Cai RN Amended: Links added.
--- NOTE | 2022-10-22 18:20 | NUR ---
Patient in room PCU 3015. I have received report from RICHARD GREEN and had the opportunity to ask questions and assume patient care.
[2022-10-22] MEDS: buPROPion SR 100mg tab PO SCH (19:39)
[2022-10-22] MEDS: mirtazapine 15mg tablet PO SCH (22:01)
[2022-10-22] MEDS: atorvastatin 10mg tablet PO SCH (22:02)
[2022-10-22] MEDS: hydrOXYzine 25 MG tablet PO SCH (22:02)
[2022-10-22] MEDS: traZODone 150mg tablet PO SCH (22:26)
[2022-10-23] VITALS (8 sets, daily range): BP systolic 86–113; BP diastolic 46–65; PULSE 80–89; RESP 12–18; TEMP 97.2–98.8; O2SAT 94–99
[2022-10-23] MEDS: cyclobenzaprine 10mg tablet PO SCH ×4 (00:22→23:21)
[2022-10-23] MEDS: sucralfate 1 gm tablet PO SCH ×4 (00:22→23:22)
[2022-10-23] MEDS: morphine 2 MG/ML inj. syringe IV PRN ×3 (00:23→11:05)
[2022-10-23] MEDS: pantoprazole 40MG/NS 100ML BAG 100 ML IV SCH ×2 (02:12→06:00)
[2022-10-23] MEDS: normal saline 1000ml 500 ML IV SCH ×3 (04:37→09:14)
--- NOTE | 2022-10-23 06:25 | NUR ---
Problems reprioritized. Patient report given, questions answered & plan of care reviewed with RICHARD CANTU.
[2022-10-23] MEDS: K and/or MAG REPLACEMENT MC SCH ×2 (08:00→20:00)
[2022-10-23] MEDS: metoprolol tartrate 25mg tablet PO SCH ×2 (08:00→09:32)
[2022-10-23 08:04] LABS: HEMATOCRIT 24.9 % (35.0-45.0); HEMOGLOBIN 7.9 g/dl (12.0-16.0); MEAN CORPUSCULAR HEMOGLOBIN 30.4 PG (27.0-31.0); MEAN CORPUSCULAR HGB CONC 31.8 g/dL (33.0-36.5); MEAN CORPUSCULAR VOLUME 95.6 FL (78-98); MEAN PLATELET VOLUME 6.8 FL (7.4-10.4); PLATELET COUNT 347 X10'3 (140-440); RED BLOOD COUNT 2.61 X10'6 (4.20-5.60); RED CELL DISTRIBUTION WIDTH 21.2 % (11.5-14.5); WHITE BLOOD COUNT 8.6 X10'3 (4.5-11.0)
[2022-10-23 08:14] LABS: % IRON SATURATION 36 % (11-46); IRON 58 UG/DL (49-151); TOTAL IRON BINDING CAPACITY 163 UG/DL (259-388)
[2022-10-23 08:16] LABS: ALANINE AMINOTRANSFERASE 15 U/L (12-78); ALBUMIN 2.2 G/DL (3.4-5.0); ALBUMIN/GLOBULIN RATIO 0.7 (1.1-1.5); ALKALINE PHOSPHATASE 258 IU/L (46-116); ANION GAP 11 (8-16); ASPARTATE AMINO TRANSFERASE 24 U/L (10-37); BILIRUBIN,TOTAL 0.9 MG/DL (0.1-1.0); BLOOD UREA NITROGEN 18 MG/DL (7-18); BUN/CREATININE RATIO 21.7 (10.0-20.0); CALCIUM 7.8 MG/DL (8.5-10.1); CHLORIDE 112 MMOL/L (99-107); CREATININE 0.83 MG/DL (0.40-0.90); GLUCOSE 84 MG/DL (70-104); POTASSIUM 3.7 MMOL/L (3.5-5.1); SODIUM 141 MMOL/L (135-145); TOTAL CARBON DIOXIDE 18.3 MMOL/L (24-32); TOTAL PROTEIN 5.2 G/DL (6.4-8.2); eCRCL 58 ML/MIN; eGFR 69 ML/MIN
[2022-10-23] MEDS: gabapentin 300mg capsule PO SCH (09:29)
[2022-10-23] MEDS: lamoTRIgine 25mg tablet PO SCH (09:29)
[2022-10-23] MEDS: EMPAGLIFLOZIN 10 MG TABLET PO SCH (09:30)
[2022-10-23] MEDS: buPROPion SR 100mg tab PO SCH ×2 (09:30→21:13)
[2022-10-23] MEDS: docusate sod 100mg capsule PO SCH ×2 (09:30→21:14)
[2022-10-23] MEDS: duloxetine 30mg CAPSULE.DR PO SCH (09:32)
[2022-10-23] MEDS: levoTHYROXINE 75mcg tablet PO SCH (09:38)
[2022-10-23] MEDS: pantoprazole 40mg Tablet.DR PO SCH (10:37)
[2022-10-23] MEDS: HYDROcodone/acetaminophen 10/325mg tab PO PRN ×3 (13:37→23:16)
[2022-10-23] MEDS ORDERED: HYDROcodone/acetaminophen 10/325mg tab PO PRN (15:20)
[2022-10-23] MEDS: magnesium hydroxide 30ml (MOM) UD suspension PO PRN (16:43)
[2022-10-23] MEDS: midodrine 5mg tablet PO SCH (16:44)
--- NOTE | 2022-10-23 18:20 | NUR ---
Patient in room PCU 3015. I have received report from Linda RAMOS and had the opportunity to ask questions and assume patient care.
[2022-10-23] MEDS: mirtazapine 15mg tablet PO SCH (21:13)
[2022-10-23] MEDS: hydrOXYzine 25 MG tablet PO SCH (21:14)
[2022-10-23] MEDS: traZODone 150mg tablet PO SCH (21:14)
[2022-10-23] MEDS: atorvastatin 10mg tablet PO SCH (21:14)
[2022-10-24] VITALS (7 sets, daily range): BP systolic 84–101; BP diastolic 44–58; PULSE 78–88; RESP 11–18; TEMP 97.9–99; O2SAT 96–97
[2022-10-24] MEDS: HYDROcodone/acetaminophen 10/325mg tab PO PRN ×3 (04:03→14:04)
--- NOTE | 2022-10-24 06:30 | NUR ---
Patient in room PCU 3015. I have received report from Bing RAMIREZ and had the opportunity to ask questions and assume patient care.
--- NOTE | 2022-10-24 06:39 | NUR ---
Problems reprioritized. Patient report given, questions answered & plan of care reviewed with amie coy.
--- NOTE | 2022-10-24 07:23 | NUR ---
This RN has reviewed and agrees w/the HOSPICE REGISTERED NURSE's physical assessment of this patient.
[2022-10-24] MEDS: K and/or MAG REPLACEMENT MC SCH ×2 (08:00→20:00)
[2022-10-24] MEDS: levoTHYROXINE 75mcg tablet PO SCH (08:09)
[2022-10-24] MEDS: duloxetine 30mg CAPSULE.DR PO SCH (08:10)
[2022-10-24] MEDS: pantoprazole 40mg Tablet.DR PO SCH (08:10)
[2022-10-24] MEDS: buPROPion SR 100mg tab PO SCH ×2 (08:10→20:00)
[2022-10-24] MEDS: sucralfate 1 gm tablet PO SCH ×2 (08:10→15:23)
[2022-10-24] MEDS: midodrine 5mg tablet PO SCH ×3 (08:11→15:23)
[2022-10-24] MEDS: docusate sod 100mg capsule PO SCH ×2 (08:11→19:59)
[2022-10-24] MEDS: lamoTRIgine 25mg tablet PO SCH (08:11)
[2022-10-24] MEDS: gabapentin 300mg capsule PO SCH (08:11)
[2022-10-24] MEDS: EMPAGLIFLOZIN 10 MG TABLET PO SCH (08:11)
[2022-10-24] MEDS: cyclobenzaprine 10mg tablet PO SCH ×2 (08:11→15:23)
[2022-10-24 08:56] LABS: HEMATOCRIT 26.3 % (35.0-45.0); HEMOGLOBIN 8.6 g/dl (12.0-16.0); MEAN CORPUSCULAR HGB CONC 32.5 g/dL (33.0-36.5); MEAN CORPUSCULAR VOLUME 95.3 FL (78-98); MEAN PLATELET VOLUME 6.8 FL (7.4-10.4); PLATELET COUNT 366 X10'3 (140-440); RED BLOOD COUNT 2.76 X10'6 (4.20-5.60); RED CELL DISTRIBUTION WIDTH 21.4 % (11.5-14.5); WHITE BLOOD COUNT 8.3 X10'3 (4.5-11.0)
[2022-10-24 09:00] LABS: ALANINE AMINOTRANSFERASE 16 U/L (12-78); ALBUMIN 2.2 G/DL (3.4-5.0); ALBUMIN/GLOBULIN RATIO 0.7 (1.1-1.5); ALKALINE PHOSPHATASE 265 IU/L (46-116); ANION GAP 10 (8-16); ASPARTATE AMINO TRANSFERASE 21 U/L (10-37); BILIRUBIN,TOTAL 0.8 MG/DL (0.1-1.0); BLOOD UREA NITROGEN 16 MG/DL (7-18); BUN/CREATININE RATIO 16.7 (10.0-20.0); CALCIUM 8.3 MG/DL (8.5-10.1); CHLORIDE 111 MMOL/L (99-107); CREATININE 0.96 MG/DL (0.40-0.90); GLUCOSE 84 MG/DL (70-104); MAGNESIUM 2.1 MG/DL (1.5-2.4); SODIUM 142 MMOL/L (135-145); TOTAL CARBON DIOXIDE 21.1 MMOL/L (24-32); TOTAL PROTEIN 5.2 G/DL (6.4-8.2); eCRCL 50 ML/MIN; eGFR 58 ML/MIN
--- NOTE | 2022-10-24 14:19 | NUR ---
Spoke with Dr. Wright about patient's Central lines. gave order to DC both R central line and Left IJ lines.
--- NOTE | 2022-10-24 14:49 | NUR ---
Dr Moe rounded and spoke with nursing about patient's lines, no BM, and Pain management. Dr Moe gave orders for nursing to DC central line tomorrow and have PICC place a new PIV tomorrow, Remove L IJ IV, gave order to add a Dulcolax suppository now then PRN QD, DC Wynona and change to Percocet 10 mg Q 4 hours.
[2022-10-24] MEDS ORDERED: bisacodyl 10mg suppository rectal RC STA (14:58)
[2022-10-24] MEDS ORDERED: bisacodyl 10mg suppository rectal RC PRN (15:00)
[2022-10-24] MEDS: magnesium hydroxide 30ml (MOM) UD suspension PO PRN (16:13)
[2022-10-24] MEDS: oxyCODONE/APAP 10/325mg tablet PO PRN ×2 (16:19→20:13)
[2022-10-24 16:46] LABS: THYROID STIMULATING HORMONE 10.91 ulU/ml (0.34-4.50)
[2022-10-24 17:52] LABS: INR 1.3 INR; PROTHROMBIN TIME 13.9 SECONDS (9.0-12.0)
--- NOTE | 2022-10-24 18:24 | NUR ---
Problems reprioritized. Patient report given, questions answered & plan of care reviewed with Fede RAMIREZ.
[2022-10-24] MEDS: hydrOXYzine 25 MG tablet PO SCH (19:59)
[2022-10-24] MEDS: traZODone 150mg tablet PO SCH (19:59)
[2022-10-24] MEDS: mirtazapine 15mg tablet PO SCH (20:00)
[2022-10-24] MEDS: atorvastatin 10mg tablet PO SCH (20:00)
[2022-10-24] MEDS: normal saline 1000ml 1,000 ML IV SCH (20:10)
[2022-10-24] MEDS ORDERED: warfarin 5mg tablet PO ONE (21:00)
[2022-10-25] VITALS (7 sets, daily range): BP systolic 79–104; BP diastolic 42–55; PULSE 64–92; RESP 12–19; TEMP 97.7–98.8; O2SAT 93–98
[2022-10-25] MEDS: cyclobenzaprine 10mg tablet PO SCH ×3 (00:43→15:50)
[2022-10-25] MEDS: sucralfate 1 gm tablet PO SCH ×3 (00:43→15:50)
[2022-10-25] MEDS: oxyCODONE/APAP 10/325mg tablet PO PRN ×5 (00:46→22:44)
--- NOTE | 2022-10-25 02:43 | NUR ---
AGREE WITH ADDICTIONS RECOVERY SPECIALIST ASSESSMENT
[2022-10-25] MEDS: normal saline 1000ml 1,000 ML IV SCH (05:12)
[2022-10-25 07:47] LABS: HEMATOCRIT 25.2 % (35.0-45.0); HEMOGLOBIN 8.3 g/dl (12.0-16.0); MEAN CORPUSCULAR HEMOGLOBIN 31.8 PG (27.0-31.0); MEAN CORPUSCULAR HGB CONC 33.1 g/dL (33.0-36.5); MEAN PLATELET VOLUME 6.6 FL (7.4-10.4); PLATELET COUNT 343 X10'3 (140-440); RED BLOOD COUNT 2.62 X10'6 (4.20-5.60); RED CELL DISTRIBUTION WIDTH 21.7 % (11.5-14.5); WHITE BLOOD COUNT 7.9 X10'3 (4.5-11.0)
[2022-10-25] MEDS: duloxetine 30mg CAPSULE.DR PO SCH (07:49)
[2022-10-25] MEDS: midodrine 5mg tablet PO SCH ×3 (07:49→15:50)
[2022-10-25] MEDS: levoTHYROXINE 75mcg tablet PO SCH (07:49)
[2022-10-25] MEDS: lamoTRIgine 25mg tablet PO SCH (07:50)
[2022-10-25] MEDS: gabapentin 300mg capsule PO SCH (07:50)
[2022-10-25] MEDS: docusate sod 100mg capsule PO SCH ×2 (07:51→19:06)
[2022-10-25] MEDS: pantoprazole 40mg Tablet.DR PO SCH (07:51)
[2022-10-25] MEDS: buPROPion SR 100mg tab PO SCH ×2 (07:51→19:06)
[2022-10-25] MEDS: EMPAGLIFLOZIN 10 MG TABLET PO SCH (07:51)
[2022-10-25] MEDS: K and/or MAG REPLACEMENT MC SCH ×2 (07:53→20:00)
[2022-10-25 07:58] LABS: INR 1.4 INR; PROTHROMBIN TIME 14.3 SECONDS (9.0-12.0)
[2022-10-25 08:13] LABS: ALANINE AMINOTRANSFERASE 12 U/L (12-78); ALBUMIN 2.1 G/DL (3.4-5.0); ALBUMIN/GLOBULIN RATIO 0.8 (1.1-1.5); ALKALINE PHOSPHATASE 243 IU/L (46-116); ANION GAP 6 (8-16); ASPARTATE AMINO TRANSFERASE 19 U/L (10-37); BILIRUBIN,TOTAL 0.8 MG/DL (0.1-1.0); BLOOD UREA NITROGEN 15 MG/DL (7-18); CALCIUM 7.9 MG/DL (8.5-10.1); CHLORIDE 110 MMOL/L (99-107); CREATININE 0.94 MG/DL (0.40-0.90); GLUCOSE 78 MG/DL (70-104); MAGNESIUM 1.9 MG/DL (1.5-2.4); POTASSIUM 3.9 MMOL/L (3.5-5.1); SODIUM 140 MMOL/L (135-145); TOTAL CARBON DIOXIDE 24.5 MMOL/L (24-32); TOTAL PROTEIN 4.8 G/DL (6.4-8.2); eCRCL 51 ML/MIN; eGFR 60 ML/MIN
--- NOTE | 2022-10-25 09:23 | NUR ---
Spoke with Dr Crandall about plan of care. gave order for colonoscopy tomorrow, bradly of Omayra, NPO after midnight, CL diet today.
[2022-10-25] MEDS ORDERED: PEG 3350/Na sulf,bicarb,Cl/KCl oral sol 4 liter bottle PO ONE (12:00)
--- NOTE | 2022-10-25 12:26 | NUR ---
AGREE WITH SPEECH AND HEARING DIRECTOR AM ASSESSMENT
--- NOTE | 2022-10-25 13:40 | NUR ---
WOC note: Per medical records, this is a 67 year old female who presents to the ED with chief complaint of significant fatigue and dizziness. Admit hypotension, also hemoccult positive stool in ED noted. Past medical history of Atrial fibrillation, Hypertension, Chronic back pain, Seasonal allergies, HFpEF, Valvular heart disease, COPD, Bipolar, Hypothyroidism. She currently resides with her sister. Patient denes history of smoking/ drinking alcohol nor any illicit drug use. LABS: WBC 7.9, H&H 8.3 and 25.2, albumin 2.1, glucose 78, BUN 15. Wound care in for skin assessment secondary to nursing consult for skin tear LUE. The patient is resting comfortably at nurse arrival, awake and in agreement with assessment and intent. ID by name and / medical band. Patient is independent in ADLS. Turns in the bed easily. Her heels are pink and firm, sacrococcygeal area slightly reddened with blanching intact skin. No rashes or moisture noted to groin. Left elbow presents with two small dry scabs from a fall at home, pt reports. No redness or edema noted, dry dressing in place that was removed and scabs left open to air as they are dry. Right hand/ wrist in soft splint, good CSM. Primary nurse reports the patient told her she had a wound under the split, pt states she had a small closed scab under the splint and she does not want it removed. She reports no open wounds or sores, denies any pain. The remainder of the skin exam was unremarkable. Pt educated on importance of turning and repositioning every 1-2 hours and to call for assistance if needed, on protein intake to facilitate wound healing as well as to stay hydrated. Patient was left in a position of comfort, heels floated, call light in reach, bed locked and in the lowest position. Reported off to primary nurse. WOC will not follow.
--- NOTE | 2022-10-25 18:15 | NUR ---
Problems reprioritized. Patient report given, questions answered & plan of care reviewed with Fede RAMIREZ.
[2022-10-25] MEDS: mirtazapine 15mg tablet PO SCH (19:06)
[2022-10-25] MEDS: atorvastatin 10mg tablet PO SCH (19:06)
[2022-10-25] MEDS: traZODone 150mg tablet PO SCH (19:08)
[2022-10-25] MEDS: hydrOXYzine 25 MG tablet PO SCH (19:08)
[2022-10-25] MEDS ORDERED: warfarin 5mg tablet PO ONE (21:00)
[2022-10-26] VITALS (9 sets, daily range): BP systolic 92–138; BP diastolic 47–81; PULSE 76–85; RESP 13–19; TEMP 97–97.6; O2SAT 92–100
[2022-10-26] MEDS: cyclobenzaprine 10mg tablet PO SCH ×3 (00:53→16:00)
[2022-10-26] MEDS: sucralfate 1 gm tablet PO SCH ×3 (00:53→16:00)
[2022-10-26] MEDS: oxyCODONE/APAP 10/325mg tablet PO PRN ×4 (05:35→19:33)
[2022-10-26] MEDS: levoTHYROXINE 75mcg tablet PO SCH (07:00)
[2022-10-26 07:20] LABS: ALANINE AMINOTRANSFERASE 15 U/L (12-78); ALBUMIN 2.2 G/DL (3.4-5.0); ALBUMIN/GLOBULIN RATIO 0.7 (1.1-1.5); ALKALINE PHOSPHATASE 284 IU/L (46-116); ANION GAP 10 (8-16); ASPARTATE AMINO TRANSFERASE 28 U/L (10-37); BILIRUBIN,TOTAL 0.9 MG/DL (0.1-1.0); BLOOD UREA NITROGEN 11 MG/DL (7-18); BUN/CREATININE RATIO 13.9 (10.0-20.0); CALCIUM 7.9 MG/DL (8.5-10.1); CHLORIDE 108 MMOL/L (99-107); CREATININE 0.79 MG/DL (0.40-0.90); GLUCOSE 81 MG/DL (70-104); INR 1.7 INR; POTASSIUM 3.9 MMOL/L (3.5-5.1); PROTHROMBIN TIME 17.6 SECONDS (9.0-12.0); SODIUM 140 MMOL/L (135-145); TOTAL CARBON DIOXIDE 21.7 MMOL/L (24-32); TOTAL PROTEIN 5.2 G/DL (6.4-8.2); eCRCL 60 ML/MIN; eGFR 73 ML/MIN
[2022-10-26] MEDS: buPROPion SR 100mg tab PO SCH ×2 (08:00→19:33)
[2022-10-26] MEDS: K and/or MAG REPLACEMENT MC SCH ×2 (08:00→20:00)
[2022-10-26] MEDS: docusate sod 100mg capsule PO SCH ×2 (08:00→19:32)
[2022-10-26] MEDS: gabapentin 300mg capsule PO SCH (11:08)
[2022-10-26] MEDS: EMPAGLIFLOZIN 10 MG TABLET PO SCH (11:09)
[2022-10-26] MEDS: midodrine 5mg tablet PO SCH ×3 (11:09→16:00)
[2022-10-26] MEDS: lamoTRIgine 25mg tablet PO SCH (11:09)
[2022-10-26] MEDS: duloxetine 30mg CAPSULE.DR PO SCH (11:09)
--- NOTE | 2022-10-26 11:09 | NUR ---
Initial: Pt admit for anemia likely secondary to upper GIB. Per physician progress note pt s/p EGD which was negative for any active bleeding or underlying etiology for bleeding in the esophagus, stomach, and duodenum. Pt currently on a clear liquid diet, pending colonoscopy per physician note. Prior to clear liquid diet pt was on a heart healthy diet and eating well, documented with average 86% PO intake meeting 100% estimated protein and energy needs. Paged physician with recommendation for routine MVM with Iron, Vitamin B12, Vitamin D3, and Calcium given h/o gastric bypass. LBM 10/25 per I&O. Will continue to follow and make recommendations as appropriate. Recommendations: 1) Resume heart healthy diet as medically indicated 2) Consider routine MVM with Iron, Vitamin B12, Vitamin D3, and Calcium given h/o gastric bypass-physician paged 10/26 3) Routine bowel care per rx 4) Scaled weight this admit; subsequent weekly scaled weights Addendum: 10/26/22 at [address] Amended: Links added.
[2022-10-26] MEDS: pantoprazole 40mg Tablet.DR PO SCH (11:10)
--- NOTE | 2022-10-26 12:54 | NUR ---
agree with academic affairs assistant am assessment except where additions added.
--- NOTE | 2022-10-26 16:00 | NUR ---
PATIENT TAKEN TO GI LAB FOR COLONOSCOPY PROCEDURE.
[2022-10-26] MEDS ORDERED: MIDAZolam 1 MG/ML 5ML VIAL ONE (16:53)
[2022-10-26] MEDS ORDERED: fentaNYL/PF 50MCG/1 ML 2ML syringe ONE (16:53)
[2022-10-26] MEDS: hydrOXYzine 25 MG tablet PO SCH (19:32)
[2022-10-26] MEDS: atorvastatin 10mg tablet PO SCH (19:33)
[2022-10-26] MEDS: traZODone 150mg tablet PO SCH (19:33)
[2022-10-26] MEDS: mirtazapine 15mg tablet PO SCH (19:33)
[2022-10-26] MEDS ORDERED: warfarin 4mg tablet PO ONE (21:00)
[2022-10-27] MEDS: sucralfate 1 gm tablet PO SCH ×2 (00:49→07:52)
[2022-10-27] MEDS: cyclobenzaprine 10mg tablet PO SCH ×2 (00:49→07:52)
[2022-10-27] MEDS: oxyCODONE/APAP 10/325mg tablet PO PRN ×3 (00:49→12:10)
[2022-10-27 01:00] VITALS: BP 102/56; PULSE 80; RESP 16; TEMP 98.9; O2SAT 94
[2022-10-27 06:14] LABS: INR 2.1 INR; PROTHROMBIN TIME 21.2 SECONDS (9.0-12.0)
--- NOTE | 2022-10-27 06:21 | NUR ---
Patient in room PCU 3015. I have received report from Fede and had the opportunity to ask questions and assume patient care.
[2022-10-27 06:30] VITALS: BP 111/64; PULSE 82; RESP 15; TEMP 98.1; O2SAT 96
[2022-10-27] MEDS: duloxetine 30mg CAPSULE.DR PO SCH (07:51)
[2022-10-27] MEDS: pantoprazole 40mg Tablet.DR PO SCH (07:52)
[2022-10-27] MEDS: gabapentin 300mg capsule PO SCH (07:52)
[2022-10-27] MEDS: lamoTRIgine 25mg tablet PO SCH (07:52)
[2022-10-27] MEDS: buPROPion SR 100mg tab PO SCH (07:52)
[2022-10-27] MEDS: midodrine 5mg tablet PO SCH ×2 (07:53→12:10)
[2022-10-27] MEDS: levoTHYROXINE 75mcg tablet PO SCH (07:53)
[2022-10-27] MEDS: docusate sod 100mg capsule PO SCH (07:53)
[2022-10-27] MEDS: EMPAGLIFLOZIN 10 MG TABLET PO SCH (07:53)
[2022-10-27 08:00] VITALS: RESP 15; O2SAT 96
[2022-10-27] MEDS: K and/or MAG REPLACEMENT MC SCH (08:00)
--- NOTE | 2022-10-27 14:00 | NUR ---
Patient discharged home. DCed telebox and IV's [facility] Went over DC instructions with patient and her sister and answered all questions. Patient was stable and had no c/o pain or discomfort at the time of discharge. Transported patient out via wheelchair and she left in a private vehicle.
[2022-10-27] MEDS ORDERED: warfarin 4mg tablet PO ONE (21:00)
== END 2022-10-27 14:52 | disposition home health service (06) | DRG 377 ==
LOC: ER 14:34 → ED HOLD 16:41 → PCU 3S 10-22 14:40
PROVIDERS: ADMIT Family Medicine; ATTEND Family Medicine
PROC: 30233N1 Transfusion of Nonautologous Red Blood Cells into Peripheral Vein, Percutaneous Approach (ICD-10-PCS; 2022-10-21)
PROC: 30233K1 Transfusion of Nonautologous Frozen Plasma into Peripheral Vein, Percutaneous Approach (ICD-10-PCS; 2022-10-22)
PROC: 0DJ08ZZ Inspection of Upper Intestinal Tract, Via Natural or Artificial Opening Endoscopic (ICD-10-PCS; 2022-10-22)
PROC: 0DBM8ZZ Excision of Descending Colon, Via Natural or Artificial Opening Endoscopic (ICD-10-PCS; principal; 2022-10-26)
DX: K92.2 Gastrointestinal hemorrhage, unspecified (principal); N17.0 Acute kidney failure with tubular necrosis; I50.32 Chronic diastolic (congestive) heart failure; D62 Acute posthemorrhagic anemia; E86.0 Dehydration; K57.31 Diverticulosis of large intestine without perforation or abscess with bleeding; G89.29 Other chronic pain; M54.9 Dorsalgia, unspecified; I95.9 Hypotension, unspecified; D12.4 Benign neoplasm of descending colon; K64.8 Other hemorrhoids; E03.9 Hypothyroidism, unspecified; F31.9 Bipolar disorder, unspecified; I48.0 Paroxysmal atrial fibrillation; J44.9 Chronic obstructive pulmonary disease, unspecified; G43.909 Migraine, unspecified, not intractable, without status migrainosus; D64.9 Anemia, unspecified; I11.0 Hypertensive heart disease with heart failure; E11.9 Type 2 diabetes mellitus without complications; Z96.651 Presence of right artificial knee joint; Z96.611 Presence of right artificial shoulder joint; Z83.3 Family history of diabetes mellitus; Z79.01 Long term (current) use of anticoagulants; Z79.899 Other long term (current) drug therapy
CPT/HCPCS: 36415; 36430; 43235; 45380; 71045; 73502; 80053; 81001; 83540; 83550; 83605; 83735; 83880; 84145; 84443; 84484; 85008; 85025; 85027; 85610; 85730; 86885; 86900; 86901; 86920; 87040; 93005; 93306; 97116; 97161; 97530; 99152; 99153; 99285; A4615; A4620; A6223; A6258; A6449; C1751; C1889; C9113; G0378; J2250; J2270; J3010; J3430; J3490; J7030; J7040; P9016; P9059; Q0177

== ENCOUNTER 2022-11-22 13:09 | Inpatient (IN) | payer BC ==
[2022-11-22] VITALS (8 sets, daily range): BP systolic 88–112; BP diastolic 48–64; PULSE 101–117; RESP 10–20; TEMP 97–98.5; O2SAT 94–96
[~2022-11-22] VITALS: Ht 160 cm; Wt 60.9 kg
[~2022-11-22 13:09] MED LIST changes: -ALBU2.5V13 NEB; +ATOR10TA70 PO; +ATOR10TA87 PO; -BUPR-317 PO; +BUPR200T30 PO; -BUPR300T86 PO; -BUSP10TA3 PO; +CYCL-1 PO; +CYCL-394 PO; -DOCU100T2 PO; -FURO-150 PO; -IRON150C5 PO; +LAMO25TA5 PO; -LEVO50TA8 PO; +LEVO75TA PO; +LEVO75TA7 PO; -LISI10TA27 PO; -ONDA8TAB13 PO; -SUMA50TA PO; -WARF-55 PO; +WARF2.5T82 PO
[2022-11-22] MEDS ORDERED: diltiazem 5mg/ml 5ml inj. IV ONE ×2 (13:30→15:35)
[2022-11-22] MEDS ORDERED: aspirin 81mg tab.chew PO ONE (13:30)
[2022-11-22 13:57] LABS: BASOPHILS # (AUTO) 0.1 X10'3 (0-0.2); BASOPHILS % (AUTO) 1.1 % (0-1); EOSINOPHILS # (AUTO) 0.8 X10'3 (0-0.9); EOSINOPHILS % (AUTO) 11.2 % (0-6); HEMATOCRIT 41.2 % (35.0-45.0); HEMOGLOBIN 13.2 g/dl (12.0-16.0); LYMPHOCYTES # (AUTO) 1.5 X10'3 (1.1-4.8); LYMPHOCYTES % (AUTO) 22.2 % (21-51); MEAN CORPUSCULAR HEMOGLOBIN 30.9 PG (27.0-31.0); MEAN CORPUSCULAR HGB CONC 32.1 g/dL (33.0-36.5); MEAN CORPUSCULAR VOLUME 96.3 FL (78-98); MEAN PLATELET VOLUME 7.3 FL (7.4-10.4); MONOCYTES # (AUTO) 0.7 X10'3 (0-0.9); MONOCYTES % (AUTO) 9.6 % (2-12); NEUTROPHILS # (AUTO) 3.9 X10'3 (1.8-7.7); NEUTROPHILS % (AUTO) 55.9 % (42-75); PLATELET COUNT 369 X10'3 (140-440); RED BLOOD COUNT 4.28 X10'6 (4.20-5.60); RED CELL DISTRIBUTION WIDTH 18.1 % (11.5-14.5); WHITE BLOOD COUNT 6.9 X10'3 (4.5-11.0)
[2022-11-22] MEDS ORDERED: HYDROcodone/acetaminophen 10/325mg tab PO ONE (14:00)
[2022-11-22 14:14] LABS: ALANINE AMINOTRANSFERASE 79 U/L (12-78); ALBUMIN 2.7 G/DL (3.4-5.0); ALBUMIN/GLOBULIN RATIO 0.7 (1.1-1.5); ALKALINE PHOSPHATASE 271 IU/L (46-116); ANION GAP 8 (8-16); ASPARTATE AMINO TRANSFERASE 95 U/L (10-37); BILIRUBIN,TOTAL 0.3 MG/DL (0.1-1.0); BLOOD UREA NITROGEN 15 MG/DL (7-18); BUN/CREATININE RATIO 15.5 (10.0-20.0); CALCIUM 8.3 MG/DL (8.5-10.1); CHLORIDE 113 MMOL/L (99-107); CREATININE 0.97 MG/DL (0.40-0.90); GLUCOSE 91 MG/DL (70-104); POTASSIUM 4.1 MMOL/L (3.5-5.1); SODIUM 141 MMOL/L (135-145); TOTAL CARBON DIOXIDE 20.2 MMOL/L (24-32); TOTAL PROTEIN 6.4 G/DL (6.4-8.2); eCRCL 47 ML/MIN; eGFR 57 ML/MIN
[2022-11-22] MEDS ORDERED: acetaminophen 325mg tablet PO PRN (14:50)
[2022-11-22] MEDS ORDERED: potassium Cl 20 mEq SR tablet PO PRN ×2 (14:50)
[2022-11-22] MEDS ORDERED: mag hydrox/Alum hydrox/simeth 30ml oral suspension PO PRN (14:50)
[2022-11-22] MEDS ORDERED: magnesium 2GM in 50ml NS 50 ML IV PRN (14:50)
[2022-11-22] MEDS ORDERED: magnesium hydroxide 30ml (MOM) UD suspension PO PRN (14:50)
[2022-11-22] MEDS ORDERED: potassium Cl 40MEQ/1/2NS 520ml 520 ML IV PRN (14:50)
[2022-11-22] MEDS ORDERED: magnesium 4gm in 100ml NS 100 ML IV PRN (14:50)
[2022-11-22] MEDS ORDERED: ondansetron/PF 4mg/2ml inj IV PRN (14:50)
[2022-11-22] MEDS ORDERED: magnesium Cl slow-release 64mg tablet PO PRN (14:50)
[2022-11-22] MEDS ORDERED: glucagon, human recombinant 1mg kit SUBCUT PRN (14:55)
[2022-11-22] MEDS ORDERED: DEXTROSE 15 GM of carb/4 tabs (each vial/BOTTLE has 4 tablets) PO PRN ×2 (14:55)
[2022-11-22] MEDS ORDERED: MESSAGE TO PHARMACY PO ONE (14:55)
[2022-11-22] MEDS ORDERED: dextrose 50%-water 50ml dispensing syringe IV PRN ×2 (14:55)
[2022-11-22] MEDS ORDERED: insulin Lispro (HumaLOG) vial - multi-dose SQ SCH (14:55)
[2022-11-22] MEDS: diltiazem-NS 100mg/100ml 100 ML IV PRN (15:36)
[2022-11-22] MEDS: morphine 2 MG/ML inj. syringe IV PRN ×2 (16:54→21:46)
[2022-11-22] MEDS: K and/or MAG REPLACEMENT MC SCH (19:51)
[2022-11-22] MEDS: apixaban 5mg tablet PO SCH (19:52)
[2022-11-22] MEDS: docusate sod 100mg capsule PO SCH (19:52)
[2022-11-22] MEDS: insulin glargine (Lantus) pen - multi-dose SQ SCH (21:00)
[2022-11-23] VITALS (24 sets, daily range): BP systolic 84–119; BP diastolic 45–88; PULSE 95–119; RESP 10–18; TEMP 97.3–98.3; O2SAT 94–97
[2022-11-23] MEDS: diltiazem-NS 100mg/100ml 100 ML IV PRN ×2 (03:16→11:39)
[2022-11-23] MEDS: morphine 2 MG/ML inj. syringe IV PRN ×5 (03:17→20:58)
--- NOTE | 2022-11-23 06:35 | NUR ---
Problems reprioritized. Patient report given, questions answered & plan of care reviewed with Derick
[2022-11-23 06:44] LABS: BASOPHILS # (AUTO) 0.1 X10'3 (0-0.2); BASOPHILS % (AUTO) 1.3 % (0-1); EOSINOPHILS # (AUTO) 0.8 X10'3 (0-0.9); EOSINOPHILS % (AUTO) 10.5 % (0-6); HEMATOCRIT 38.6 % (35.0-45.0); HEMOGLOBIN 12.5 g/dl (12.0-16.0); LYMPHOCYTES # (AUTO) 2.1 X10'3 (1.1-4.8); LYMPHOCYTES % (AUTO) 27.1 % (21-51); MEAN CORPUSCULAR HEMOGLOBIN 31.6 PG (27.0-31.0); MEAN CORPUSCULAR HGB CONC 32.5 g/dL (33.0-36.5); MEAN CORPUSCULAR VOLUME 97.1 FL (78-98); MEAN PLATELET VOLUME 7.4 FL (7.4-10.4); MONOCYTES # (AUTO) 0.6 X10'3 (0-0.9); MONOCYTES % (AUTO) 8.3 % (2-12); NEUTROPHILS % (AUTO) 52.8 % (42-75); PLATELET COUNT 347 X10'3 (140-440); RED BLOOD COUNT 3.97 X10'6 (4.20-5.60); RED CELL DISTRIBUTION WIDTH 18.1 % (11.5-14.5); WHITE BLOOD COUNT 7.6 X10'3 (4.5-11.0)
--- NOTE | 2022-11-23 06:44 | NUR ---
Patient in room U 3022. I have received report from Alexandria and had the opportunity to ask questions and assume patient care. Addendum: 11/23/22 at 0645 by Derick Cai RN Amended: Links added.
[2022-11-23 07:05] LABS: ALANINE AMINOTRANSFERASE 54 U/L (12-78); ALBUMIN 2.6 G/DL (3.4-5.0); ALBUMIN/GLOBULIN RATIO 0.8 (1.1-1.5); ALKALINE PHOSPHATASE 238 IU/L (46-116); ANION GAP 7 (8-16); ASPARTATE AMINO TRANSFERASE 55 U/L (10-37); BILIRUBIN,TOTAL 0.3 MG/DL (0.1-1.0); BLOOD UREA NITROGEN 16 MG/DL (7-18); BUN/CREATININE RATIO 13.8 (10.0-20.0); CALCIUM 8.6 MG/DL (8.5-10.1); CHLORIDE 110 MMOL/L (99-107); CHOL/HDL RATIO 3.1 (0.00-4.99); CHOLESTEROL 167 MG/DL (0-200); CREATININE 1.16 MG/DL (0.40-0.90); GLUCOSE 85 MG/DL (70-104); HDL CHOLESTEROL 54 MG/DL (35-60); LDL CHOLESTEROL 87 MG/DL (50-100); POTASSIUM 4.1 MMOL/L (3.5-5.1); SODIUM 139 MMOL/L (135-145); TOTAL CARBON DIOXIDE 22.5 MMOL/L (24-32); TRIGLYCERIDES 67 MG/DL (20-135); eCRCL 39 ML/MIN; eGFR 47 ML/MIN
[2022-11-23] MEDS: docusate sod 100mg capsule PO SCH ×2 (07:41→19:19)
[2022-11-23] MEDS: apixaban 5mg tablet PO SCH ×2 (07:41→19:18)
[2022-11-23] MEDS: K and/or MAG REPLACEMENT MC SCH ×2 (08:00→19:19)
--- NOTE | 2022-11-23 08:25 | NUR ---
Juan A screen froze up during administration of morphine, computer restarted, administration charted on separate computer
[2022-11-23 10:24] LABS: BILIRUBIN,URINE NEGATIVE (Neg); CLARITY,URINE CLOUDY (Clear); COLOR,URINE YELLOW (Yellow); GLUCOSE, URINE 250 mg/dl (Neg); KETONES,URINE NEGATIVE (Neg); LEUKOCYTE ESTERASE ,URINE SMALL (Neg); NITRITES, URINE NEGATIVE (Neg); OCCULT BLOOD,URINE NEGATIVE (Neg); PROTEIN,URINE NEGATIVE (Neg); UROBILINOGEN,URINE 0.2 E.U/dL (0.2-1.0)
[2022-11-23 10:45] LABS: UA COLLECTION TYPE CLN CATCH MIDSTREAM; WBC,URINE 50-100 /HPF (0-4)
[2022-11-23 10:46] LABS: BACTERIA,URINE 4+ /HPF (Neg); MUCUS STRANDS FEW /LPF (Neg); SQUAMOUS EPITHELIAL CELL,UR MANY /LPF (FEW)
[2022-11-23 14:25] LABS: BILIRUBIN,URINE NEGATIVE (Neg); CLARITY,URINE CLOUDY (Clear); COLOR,URINE YELLOW (Yellow); GLUCOSE, URINE 100 mg/dl (Neg); KETONES,URINE NEGATIVE (Neg); LEUKOCYTE ESTERASE ,URINE SMALL (Neg); NITRITES, URINE NEGATIVE (Neg); OCCULT BLOOD,URINE TRACE-INTACT (Neg); PH,URINE 5.5 (4.8-8.0); PROTEIN,URINE NEGATIVE (Neg); UROBILINOGEN,URINE 0.2 E.U/dL (0.2-1.0)
--- NOTE | 2022-11-23 14:38 | NUR ---
Malnutrition consult: Pt admit for Afib, increased LFTs unknown etiology per EMR. Pt is on a heart healthy diet with average PO intake of 88% x 2 first meals which met 100% of estimated kcal and protein needs. Per RN malnutrition screen pt reports 34 pound or more wt loss and a decreased in PO intake/appetite. Scaled wt this admit of 60.9kg (134 pounds) and prior wt hx in EMR of 78.3kg (172 pounds) on 10/06/22 confirms reported wt loss. Pt seen at bedside reports UBW of 180 pounds about 3 months ago. Pt states she started to lose weight intentionally a few months ago and got to 180 pounds but then "heart problems started and the weight loss was no longer on purpose". Pt reports a decreased appetite for the last 3 months but tries to drink Ensures at home 3 times a day but doesn't always; Ensure coupons provided. Pt physically had signs of muscle wasting to mandaen region and clavicle region as well as fat wasting to orbital region. Due to reported decreased intake, wt loss hx in EMR, and visible wasting, pt meet a minimum of two malnutrition criteria at this time; notified. LBM on 11/22 receiving routine colace per EMR. Will continue to monitor and make recommendations as appropriate. Recommendations: 1.continue heart healthy diet;consider liberalizing to regular if PO intake declines 2.monitor PO intake and monitor need for ONS 3.routine bowel care 4 weekly wts Addendum: 11/23/22 at [address] Amended: Links added.
[2022-11-23 14:50] LABS: UA COLLECTION TYPE CLN CATCH MIDSTREAM
[2022-11-23 14:51] LABS: BACTERIA,URINE 4+ /HPF (Neg); SQUAMOUS EPITHELIAL CELL,UR MODERATE /LPF (FEW); WBC CLUMPS,URINE MODERATE /HPF (NEGATIVE); WBC,URINE 30-50 /HPF (0-4)
[2022-11-23 14:52] LABS: RBC,URINE 0-2 /HPF (0-2)
--- NOTE | 2022-11-23 18:35 | NUR ---
Problems reprioritized. Patient report given, questions answered & plan of care reviewed with Alexandria. Addendum: 11/23/22 at 1835 by Derick Cai RN Amended: Links added.
[2022-11-23] MEDS: insulin glargine (Lantus) pen - multi-dose SQ SCH (21:00)
[2022-11-24] VITALS (18 sets, daily range): BP systolic 92–120; BP diastolic 60–76; PULSE 84–130; RESP 11–28; TEMP 97.4–98.8; O2SAT 94–98
[2022-11-24] MEDS: morphine 2 MG/ML inj. syringe IV PRN ×2 (02:47→07:41)
[2022-11-24] MEDS: diltiazem-NS 100mg/100ml 100 ML IV PRN (04:51)
--- NOTE | 2022-11-24 06:24 | NUR ---
Patient in room U 3022. I have received report from Alexandria and had the opportunity to ask questions and assume patient care. Addendum: 11/24/22 at 0624 by Derick Cai RN Amended: Links added.
--- NOTE | 2022-11-24 06:24 | NUR ---
Patient in room U 3023. I have received report from Juliette and had the opportunity to ask questions and assume patient care. Addendum: 11/24/22 at 0624 by Derick Cai RN Amended: Links added.
--- NOTE | 2022-11-24 06:38 | NUR ---
Problems reprioritized. Patient report given, questions answered & plan of care reviewed with Derick
[2022-11-24 06:42] LABS: BASOPHILS # (AUTO) 0.1 X10'3 (0-0.2); BASOPHILS % (AUTO) 0.8 % (0-1); EOSINOPHILS # (AUTO) 0.7 X10'3 (0-0.9); EOSINOPHILS % (AUTO) 8.2 % (0-6); HEMATOCRIT 41.6 % (35.0-45.0); HEMOGLOBIN 13.3 g/dl (12.0-16.0); LYMPHOCYTES # (AUTO) 1.4 X10'3 (1.1-4.8); LYMPHOCYTES % (AUTO) 15.7 % (21-51); MEAN CORPUSCULAR HEMOGLOBIN 31.4 PG (27.0-31.0); MEAN CORPUSCULAR HGB CONC 32.1 g/dL (33.0-36.5); MEAN CORPUSCULAR VOLUME 97.7 FL (78-98); MEAN PLATELET VOLUME 7.4 FL (7.4-10.4); MONOCYTES # (AUTO) 0.6 X10'3 (0-0.9); MONOCYTES % (AUTO) 7.1 % (2-12); NEUTROPHILS % (AUTO) 68.2 % (42-75); PLATELET COUNT 324 X10'3 (140-440); RED BLOOD COUNT 4.25 X10'6 (4.20-5.60); RED CELL DISTRIBUTION WIDTH 17.8 % (11.5-14.5); WHITE BLOOD COUNT 8.8 X10'3 (4.5-11.0)
[2022-11-24 07:20] LABS: ALANINE AMINOTRANSFERASE 40 U/L (12-78); ALBUMIN 2.6 G/DL (3.4-5.0); ALBUMIN/GLOBULIN RATIO 0.7 (1.1-1.5); ALKALINE PHOSPHATASE 242 IU/L (46-116); ANION GAP 10 (8-16); ASPARTATE AMINO TRANSFERASE 37 U/L (10-37); BILIRUBIN,TOTAL 0.4 MG/DL (0.1-1.0); BLOOD UREA NITROGEN 22 MG/DL (7-18); BUN/CREATININE RATIO 25.3 (10.0-20.0); CALCIUM 8.4 MG/DL (8.5-10.1); CHLORIDE 109 MMOL/L (99-107); CREATININE 0.87 MG/DL (0.40-0.90); GLUCOSE 92 MG/DL (70-104); POTASSIUM 4.3 MMOL/L (3.5-5.1); SODIUM 138 MMOL/L (135-145); TOTAL CARBON DIOXIDE 19.4 MMOL/L (24-32); TOTAL PROTEIN 6.1 G/DL (6.4-8.2); eCRCL 53 ML/MIN; eGFR 65 ML/MIN
[2022-11-24] MEDS: docusate sod 100mg capsule PO SCH ×2 (07:34→20:00)
[2022-11-24] MEDS: apixaban 5mg tablet PO SCH (07:34)
[2022-11-24] MEDS: K and/or MAG REPLACEMENT MC SCH ×2 (08:00→20:00)
[2022-11-24] MEDS ORDERED: ipratropium 0.5 MG/2.5ML nebule IH PRN (08:35)
[2022-11-24 11:37] LABS: PROTHROMBIN TIME 11.1 SECONDS (9.0-12.0)
[2022-11-24] MEDS: HYDROcodone/acetaminophen 10/325mg tab PO PRN ×3 (11:39→23:47)
[2022-11-24] MEDS ORDERED: amiodarone 150mg/dext, iso-os 100 ML IV ONE (12:25)
[2022-11-24] MEDS: amiodarone/D5 360MG/200ML BAG 200 ML IV SCH ×2 (13:18→21:17)
[2022-11-24 15:26] LABS: HBSAG SCREEN Negative (Negative); HEP A AB, IGM Negative (Negative); HEP B CORE AB, IGM Negative (Negative); HEPATITIS C VIRUS ANTIBODY Non Reactive (Non Reactive)
[2022-11-24] MEDS: sucralfate 1 gm tablet PO SCH ×2 (16:18→23:47)
--- NOTE | 2022-11-24 18:11 | NUR ---
Problems reprioritized. Patient report given, questions answered & plan of care reviewed with Alexandria. Addendum: 11/24/22 at 1811 by Derick Cai RN Amended: Links added.
[2022-11-24] MEDS ORDERED: warfarin 5mg tablet PO SCH (21:00)
[2022-11-24] MEDS: pantoprazole 40mg Tablet.DR PO SCH (21:13)
[2022-11-24] MEDS: traZODone 150mg tablet PO SCH (21:13)
[2022-11-24] MEDS: buPROPion SR 100mg tab PO SCH (21:14)
[2022-11-24] MEDS: mirtazapine 15mg tablet PO SCH (21:14)
[2022-11-24] MEDS: hydrOXYzine 25 MG tablet PO SCH (21:14)
[2022-11-24] MEDS: diltiazem 30mg tablet PO SCH (21:15)
[2022-11-25] VITALS (17 sets, daily range): BP systolic 82–138; BP diastolic 37–82; PULSE 76–124; RESP 11–24; TEMP 97–98.2; O2SAT 93–99
[2022-11-25] MEDS: amiodarone/D5 360MG/200ML BAG 200 ML IV SCH ×2 (00:33→06:37)
--- NOTE | 2022-11-25 01:15 | NUR ---
notified of pt's B/P of 80/38 automatic cuff and 85/50 manual cuff. New order is to give 250ml N/S bolus start
[2022-11-25] MEDS ORDERED: normal saline 500ml IV soln 500 ML IV ONE (01:20)
[2022-11-25] MEDS: diltiazem 30mg tablet PO SCH ×2 (02:00→08:14)
--- NOTE | 2022-11-25 06:57 | NUR ---
Problems reprioritized. Patient report given, questions answered & plan of care reviewed with Michel
[2022-11-25 07:19] LABS: PROTHROMBIN TIME 10.9 SECONDS (9.0-12.0)
[2022-11-25 07:20] LABS: LYMPHOCYTES # (AUTO) 1.4 X10'3 (1.1-4.8); MEAN CORPUSCULAR VOLUME 95.3 FL (78-98); MEAN PLATELET VOLUME 7.7 FL (7.4-10.4); RED CELL DISTRIBUTION WIDTH 17.4 % (11.5-14.5)
[2022-11-25 07:23] LABS: BASOPHILS % (AUTO) 0.7 % (0-1); EOSINOPHILS # (AUTO) 0.7 X10'3 (0-0.9); EOSINOPHILS % (AUTO) 10.6 % (0-6); HEMATOCRIT 39.5 % (35.0-45.0); LYMPHOCYTES % (AUTO) 20.9 % (21-51); MEAN CORPUSCULAR HEMOGLOBIN 31.4 PG (27.0-31.0); MEAN CORPUSCULAR HGB CONC 32.9 g/dL (33.0-36.5); MONOCYTES # (AUTO) 0.6 X10'3 (0-0.9); MONOCYTES % (AUTO) 9.3 % (2-12); NEUTROPHILS % (AUTO) 58.5 % (42-75); PLATELET COUNT 300 X10'3 (140-440); RED BLOOD COUNT 4.14 X10'6 (4.20-5.60); WHITE BLOOD COUNT 6.9 X10'3 (4.5-11.0)
[2022-11-25 07:26] LABS: ALANINE AMINOTRANSFERASE 32 U/L (12-78); ALBUMIN 2.6 G/DL (3.4-5.0); ALBUMIN/GLOBULIN RATIO 0.7 (1.1-1.5); ALKALINE PHOSPHATASE 241 IU/L (46-116); ANION GAP 6 (8-16); ASPARTATE AMINO TRANSFERASE 28 U/L (10-37); BILIRUBIN,TOTAL 0.2 MG/DL (0.1-1.0); BLOOD UREA NITROGEN 23 MG/DL (7-18); BUN/CREATININE RATIO 27.7 (10.0-20.0); CALCIUM 8.4 MG/DL (8.5-10.1); CHLORIDE 108 MMOL/L (99-107); CREATININE 0.83 MG/DL (0.40-0.90); GLUCOSE 88 MG/DL (70-104); POTASSIUM 4.1 MMOL/L (3.5-5.1); SODIUM 140 MMOL/L (135-145); TOTAL CARBON DIOXIDE 25.6 MMOL/L (24-32); TOTAL PROTEIN 6.1 G/DL (6.4-8.2); eCRCL 55 ML/MIN; eGFR 69 ML/MIN
[2022-11-25] MEDS: K and/or MAG REPLACEMENT MC SCH ×2 (08:00→19:47)
[2022-11-25] MEDS: docusate sod 100mg capsule PO SCH ×2 (08:00→19:48)
[2022-11-25] MEDS: sucralfate 1 gm tablet PO SCH ×2 (08:14→16:03)
[2022-11-25] MEDS: buPROPion SR 100mg tab PO SCH ×2 (08:14→19:47)
[2022-11-25] MEDS: pantoprazole 40mg Tablet.DR PO SCH ×2 (08:14→19:47)
[2022-11-25] MEDS: atorvastatin 10mg tablet PO SCH (08:15)
[2022-11-25] MEDS: EMPAGLIFLOZIN 10 MG TABLET PO SCH (08:16)
[2022-11-25] MEDS: lamoTRIgine 25mg tablet PO SCH (08:16)
[2022-11-25] MEDS: gabapentin 300mg capsule PO SCH (08:16)
[2022-11-25] MEDS: HYDROcodone/acetaminophen 10/325mg tab PO PRN ×2 (08:16→14:27)
[2022-11-25] MEDS: duloxetine 30mg CAPSULE.DR PO SCH (08:17)
[2022-11-25] MEDS: levoTHYROXINE 75mcg tablet PO SCH (08:17)
--- NOTE | 2022-11-25 10:09 | NUR ---
Patient in room PCU 3022. I have received report from Eva RAMOS and had the opportunity to ask questions and assume patient care.
--- NOTE | 2022-11-25 11:41 | NUR ---
Reassessment: Pt continues eating well on heart healthy diet, documented with average 89% PO intake since admit meeting estimated nutrient needs. LBM 11/24 per EMR. No nutrition intervention implemented at this time. Will continue to follow and make recommendations as appropriate. Recommendations: 1. Consider liberalizing to regular diet given lipid panel WNL and episodes of hypotension during admit 2. Routine bowel care 3. Weekly scaled weights Addendum: 11/25/22 at [address] Amended: Links added.
[2022-11-25] MEDS: metoprolol tartrate 50mg tablet PO SCH ×3 (12:24→19:59)
--- NOTE | 2022-11-25 14:15 | NUR ---
I talked with Levi and she wants pt to be taken off the Amio gtt now and start Amio 200 mg PO BID starting now. I have put in the orders and am taking pt off the gtt now.
[2022-11-25] MEDS: amiodarone 200mg tablet PO SCH ×2 (14:26→19:47)
[2022-11-25] MEDS: cyclobenzaprine 10mg tablet PO PRN ×2 (14:27→22:37)
[2022-11-25] MEDS ORDERED: ondansetron 4mg rapidly disintigrating tab PO PRN (15:30)
--- NOTE | 2022-11-25 18:37 | NUR ---
Problems reprioritized. Patient report given, questions answered & plan of care reviewed with Dorothy RAMOS.
[2022-11-25] MEDS ORDERED: warfarin 1mg tablet PO ONE (21:00)
[2022-11-25] MEDS: hydrOXYzine 25 MG tablet PO SCH (21:53)
[2022-11-25] MEDS: mirtazapine 15mg tablet PO SCH (21:54)
[2022-11-25] MEDS: traZODone 150mg tablet PO SCH (21:54)
[2022-11-26] MEDS: sucralfate 1 gm tablet PO SCH ×2 (00:11→08:09)
[2022-11-26 02:00] VITALS: BP 84/54; PULSE 80; RESP 15; TEMP 97.7; O2SAT 96
[2022-11-26 05:56] VITALS: BP 90/60
--- NOTE | 2022-11-26 06:29 | NUR ---
Patient report given, questions answered & plan of care reviewed with RICHARD Pearson
[2022-11-26 07:00] VITALS: BP 89/56; PULSE 80; RESP 13; TEMP 99.4; O2SAT 94
--- NOTE | 2022-11-26 07:00 | NUR ---
Patient in room PCU 3022. I have received report from Dorothy RAMOS and had the opportunity to ask questions and assume patient care.
[2022-11-26 07:16] LABS: PROTHROMBIN TIME 10.6 SECONDS (9.0-12.0)
[2022-11-26 07:33] LABS: ALANINE AMINOTRANSFERASE 35 U/L (12-78); ALBUMIN 2.6 G/DL (3.4-5.0); ALBUMIN/GLOBULIN RATIO 0.7 (1.1-1.5); ALKALINE PHOSPHATASE 270 IU/L (46-116); ANION GAP 7 (8-16); ASPARTATE AMINO TRANSFERASE 31 U/L (10-37); BILIRUBIN,TOTAL 0.3 MG/DL (0.1-1.0); BLOOD UREA NITROGEN 24 MG/DL (7-18); BUN/CREATININE RATIO 24.5 (10.0-20.0); CALCIUM 8.7 MG/DL (8.5-10.1); CHLORIDE 107 MMOL/L (99-107); CREATININE 0.98 MG/DL (0.40-0.90); GLUCOSE 87 MG/DL (70-104); MAGNESIUM 2.1 MG/DL (1.5-2.4); POTASSIUM 4.3 MMOL/L (3.5-5.1); SODIUM 137 MMOL/L (135-145); TOTAL CARBON DIOXIDE 22.8 MMOL/L (24-32); TOTAL PROTEIN 6.1 G/DL (6.4-8.2); eCRCL 47 ML/MIN; eGFR 57 ML/MIN
[2022-11-26] MEDS: K and/or MAG REPLACEMENT MC SCH (08:00)
[2022-11-26] MEDS: metoprolol tartrate 50mg tablet PO SCH (08:06)
[2022-11-26] MEDS: docusate sod 100mg capsule PO SCH (08:07)
[2022-11-26] MEDS: cyclobenzaprine 10mg tablet PO PRN (08:07)
[2022-11-26] MEDS: lamoTRIgine 25mg tablet PO SCH (08:07)
[2022-11-26] MEDS: buPROPion SR 100mg tab PO SCH (08:07)
[2022-11-26] MEDS: gabapentin 300mg capsule PO SCH (08:08)
[2022-11-26] MEDS: HYDROcodone/acetaminophen 10/325mg tab PO PRN ×2 (08:08→14:04)
[2022-11-26] MEDS: pantoprazole 40mg Tablet.DR PO SCH (08:08)
[2022-11-26] MEDS: levoTHYROXINE 75mcg tablet PO SCH (08:08)
[2022-11-26] MEDS: duloxetine 30mg CAPSULE.DR PO SCH (08:08)
[2022-11-26] MEDS: atorvastatin 10mg tablet PO SCH (08:08)
[2022-11-26] MEDS: amiodarone 200mg tablet PO SCH (08:09)
[2022-11-26] MEDS: EMPAGLIFLOZIN 10 MG TABLET PO SCH (08:09)
[2022-11-26 09:54] LABS: BASOPHILS % (AUTO) 0.6 % (0-1); EOSINOPHILS # (AUTO) 0.5 X10'3 (0-0.9); EOSINOPHILS % (AUTO) 6.5 % (0-6); HEMATOCRIT 40.8 % (35.0-45.0); HEMOGLOBIN 12.8 g/dl (12.0-16.0); LYMPHOCYTES # (AUTO) 1.1 X10'3 (1.1-4.8); LYMPHOCYTES % (AUTO) 13.5 % (21-51); MEAN CORPUSCULAR HEMOGLOBIN 30.6 PG (27.0-31.0); MEAN CORPUSCULAR HGB CONC 31.4 g/dL (33.0-36.5); MEAN CORPUSCULAR VOLUME 97.5 FL (78-98); MEAN PLATELET VOLUME 8.4 FL (7.4-10.4); MONOCYTES # (AUTO) 0.5 X10'3 (0-0.9); MONOCYTES % (AUTO) 6.7 % (2-12); NEUTROPHILS # (AUTO) 5.8 X10'3 (1.8-7.7); NEUTROPHILS % (AUTO) 72.7 % (42-75); PLATELET COUNT 294 X10'3 (140-440); RED BLOOD COUNT 4.19 X10'6 (4.20-5.60); RED CELL DISTRIBUTION WIDTH 17.9 % (11.5-14.5); WHITE BLOOD COUNT 7.9 X10'3 (4.5-11.0)
[2022-11-26 10:09] VITALS: PULSE 68; RESP 16; O2SAT 95
[2022-11-26 11:00] VITALS: BP 86/58; PULSE 82; RESP 19; TEMP 98.4; O2SAT 100
[2022-11-26] MEDS ORDERED: METO50TA16 PO (12:32)
[2022-11-26] MEDS ORDERED: AMI200T PO (12:32)
[2022-11-26] MEDS ORDERED: WARF2.5T82 PO (12:32)
[2022-11-26] MEDS ORDERED: LEVO750T68 PO (13:05)
--- NOTE | 2022-11-26 15:37 | NUR ---
Pt was DC'd as per Dr's orders. Pt was unhooked from all IV and tele. Pt and family were educated at bedside and all questions were answered. Pt gathered all belongings and took with them. Pt will set up appointments and pharmacy picking tech meds at their pharmacy. Pt was wheeled down to the lobby by staff. Pt was put in a private vehicle destined for home.
[2022-11-26] MEDS ORDERED: warfarin 1mg tablet PO ONE (21:00)
== END 2022-11-26 15:20 | disposition home health service (06) | DRG 308 ==
LOC: ER 13:09 → ED HOLD 14:52 → EDBEDREQSVC 15:52 → PCU 3S 17:45
PROVIDERS: ADMIT Internal Medicine; ATTEND Internal Medicine
DX: I48.91 Unspecified atrial fibrillation (principal); N17.0 Acute kidney failure with tubular necrosis; I50.30 Unspecified diastolic (congestive) heart failure; N39.0 Urinary tract infection, site not specified; J44.9 Chronic obstructive pulmonary disease, unspecified; E03.9 Hypothyroidism, unspecified; G43.909 Migraine, unspecified, not intractable, without status migrainosus; I11.0 Hypertensive heart disease with heart failure; F31.9 Bipolar disorder, unspecified; E78.5 Hyperlipidemia, unspecified; E11.9 Type 2 diabetes mellitus without complications; N28.9 Disorder of kidney and ureter, unspecified; R74.01 Elevation of levels of liver transaminase levels; I95.9 Hypotension, unspecified; I08.1 Rheumatic disorders of both mitral and tricuspid valves; M54.9 Dorsalgia, unspecified; G89.29 Other chronic pain; Z96.651 Presence of right artificial knee joint; Z90.711 Acquired absence of uterus with remaining cervical stump; Z79.899 Other long term (current) drug therapy; Z90.49 Acquired absence of other specified parts of digestive tract; Z87.891 Personal history of nicotine dependence; Z86.73 Personal history of transient ischemic attack (TIA), and cerebral infarction without residual deficits; Z79.01 Long term (current) use of anticoagulants; Z82.49 Family history of ischemic heart disease and other diseases of the circulatory system
CPT/HCPCS: 36415; 71045; 76700; 80053; 80061; 80074; 81001; 82948; 83735; 84484; 85025; 85610; 87077; 87081; 87088; 87186; 93005; 93308; 94760; 99285; G0378; J0282; J1815; J2270; J3490; J7040; Q0177

== ENCOUNTER 2023-01-09 16:27 | Emergency (ER) | payer BC ==
[~2023-01-09] VITALS: Ht 160 cm; Wt 65.9 kg
[~2023-01-09 16:27] MED LIST changes: +AMIO200T27 PO; -ATOR10TA87 PO; +CELE200C PO; -CYCL-394 PO; -LEVO75TA PO; +LOP12.5T PO; +WARF-55 PO; -WARF2.5T82 PO
[2023-01-09] MEDS ORDERED: morphine 4 MG/ML inj SYRINge IV ONE (17:40)
[2023-01-09] MEDS ORDERED: ondansetron/PF 4mg/2ml inj IV ONE (17:40)
[2023-01-09] MEDS ORDERED: normal saline 1000ML IV soln IVB ONE (17:40)
[2023-01-09 17:59] LABS: BASOPHILS # (AUTO) 0.1 X10'3 (0-0.2); EOSINOPHILS # (AUTO) 0.5 X10'3 (0-0.9); EOSINOPHILS % (AUTO) 6.4 % (0-6); HEMATOCRIT 32.5 % (35.0-45.0); HEMOGLOBIN 10.5 g/dl (12.0-16.0); LYMPHOCYTES # (AUTO) 1.9 X10'3 (1.1-4.8); LYMPHOCYTES % (AUTO) 25.4 % (21-51); MEAN CORPUSCULAR HGB CONC 32.4 g/dL (33.0-36.5); MEAN CORPUSCULAR VOLUME 95.7 FL (78-98); MONOCYTES # (AUTO) 0.8 X10'3 (0-0.9); MONOCYTES % (AUTO) 10.9 % (2-12); NEUTROPHILS # (AUTO) 4.2 X10'3 (1.8-7.7); NEUTROPHILS % (AUTO) 56.3 % (42-75); PLATELET COUNT 286 X10'3 (140-440); RED BLOOD COUNT 3.39 X10'6 (4.20-5.60); RED CELL DISTRIBUTION WIDTH 17.1 % (11.5-14.5); WHITE BLOOD COUNT 7.5 X10'3 (4.5-11.0)
[2023-01-09 18:14] LABS: ALANINE AMINOTRANSFERASE 71 U/L (12-78); ALBUMIN 2.8 G/DL (3.4-5.0); ALBUMIN/GLOBULIN RATIO 0.8 (1.1-1.5); ALKALINE PHOSPHATASE 217 IU/L (46-116); ANION GAP 5 (8-16); ASPARTATE AMINO TRANSFERASE 77 U/L (10-37); BILIRUBIN,TOTAL 0.3 MG/DL (0.1-1.0); BLOOD UREA NITROGEN 35 MG/DL (7-18); BUN/CREATININE RATIO 23.2 (10.0-20.0); CALCIUM 7.7 MG/DL (8.5-10.1); CHLORIDE 105 MMOL/L (99-107); CREATININE 1.51 MG/DL (0.40-0.90); GLUCOSE 88 MG/DL (70-104); POTASSIUM 5.3 MMOL/L (3.5-5.1); SODIUM 137 MMOL/L (135-145); TOTAL CARBON DIOXIDE 27.2 MMOL/L (24-32); TOTAL PROTEIN 6.2 G/DL (6.4-8.2); eGFR 34 ML/MIN
[2023-01-09 21:07] LABS: BILIRUBIN,URINE NEGATIVE (Neg); CLARITY,URINE CLOUDY (Clear); COLOR,URINE YELLOW (Yellow); GLUCOSE, URINE 500 mg/dl (Neg); KETONES,URINE NEGATIVE (Neg); LEUKOCYTE ESTERASE ,URINE SMALL (Neg); NITRITES, URINE POSITIVE (Neg); OCCULT BLOOD,URINE NEGATIVE (Neg); PROTEIN,URINE NEGATIVE (Neg); UROBILINOGEN,URINE 0.2 E.U/dL (0.2-1.0)
[2023-01-09 21:11] LABS: UA COLLECTION TYPE CLN CATCH MIDSTREAM
[2023-01-09 21:13] LABS: SQUAMOUS EPITHELIAL CELL,UR MANY /LPF (FEW)
[2023-01-09 21:14] LABS: BACTERIA,URINE 4+ /HPF (Neg); RBC,URINE NONE SEEN /HPF (0-2)
[2023-01-09 21:15] LABS: WBC,URINE TNTC /HPF (0-4)
--- NOTE | 2023-01-09 21:21 | NUR ---
UA REJECTED FOR CULTURE BY LAB, AWARE.
[2023-01-09] MEDS ORDERED: CefTRIAXone/D5W-Rocephin 1gm 50 ML IV ONE (22:05)
[2023-01-09] MEDS ORDERED: CEPH-585 PO (22:07)
[2023-01-09] MEDS ORDERED: HYDROcodone/acetaminophen 10/325mg tab PO ONE (22:25)
--- NOTE | 2023-01-09 22:45 | NUR ---
[facility] CALLED 1.5HR ETA
[2023-01-09 23:52] VITALS: BP 101/56; PULSE 60; RESP 16; TEMP 98.6; O2SAT 98
== END 2023-01-09 23:52 | disposition home or self-care (01) ==
LOC: ER 16:27
DX: R42 Dizziness and giddiness (principal); R00.1 Bradycardia, unspecified; R53.1 Weakness; G43.909 Migraine, unspecified, not intractable, without status migrainosus; I11.0 Hypertensive heart disease with heart failure; I50.9 Heart failure, unspecified; J44.9 Chronic obstructive pulmonary disease, unspecified; E11.9 Type 2 diabetes mellitus without complications; E03.9 Hypothyroidism, unspecified; F31.9 Bipolar disorder, unspecified; Z79.899 Other long term (current) drug therapy; Z79.2 Long term (current) use of antibiotics
CPT/HCPCS: 36415; 70450; 71045; 80053; 81001; 84484; 85025; 93005; 96361; 96365; 96375; 99285; J0696; J2270; J2405; J7030

== ENCOUNTER 2023-01-15 18:41 | Emergency (ER) | payer BC ==
[~2023-01-15] VITALS: Ht 160 cm; Wt 65.9 kg
[~2023-01-15 18:41] MED LIST changes: +CEPH-585 PO
[2023-01-15 19:28] LABS: BASOPHILS # (AUTO) 0.1 X10'3 (0-0.2); BASOPHILS % (AUTO) 1.2 % (0-1); EOSINOPHILS # (AUTO) 0.3 X10'3 (0-0.9); EOSINOPHILS % (AUTO) 6.2 % (0-6); HEMATOCRIT 33.2 % (35.0-45.0); HEMOGLOBIN 10.6 g/dl (12.0-16.0); LYMPHOCYTES % (AUTO) 21.3 % (21-51); MEAN CORPUSCULAR HEMOGLOBIN 30.7 PG (27.0-31.0); MEAN CORPUSCULAR HGB CONC 32.1 g/dL (33.0-36.5); MEAN CORPUSCULAR VOLUME 95.5 FL (78-98); MEAN PLATELET VOLUME 7.2 FL (7.4-10.4); MONOCYTES # (AUTO) 0.8 X10'3 (0-0.9); MONOCYTES % (AUTO) 16.9 % (2-12); NEUTROPHILS # (AUTO) 2.7 X10'3 (1.8-7.7); NEUTROPHILS % (AUTO) 54.4 % (42-75); PLATELET COUNT 233 X10'3 (140-440); RED BLOOD COUNT 3.47 X10'6 (4.20-5.60); RED CELL DISTRIBUTION WIDTH 16.9 % (11.5-14.5); WHITE BLOOD COUNT 4.9 X10'3 (4.5-11.0)
[2023-01-15 19:32] LABS: INR 1.1 INR; PROTHROMBIN TIME 11.5 SECONDS (9.0-12.0)
[2023-01-15 19:35] LABS: ALANINE AMINOTRANSFERASE 112 U/L (12-78); ALBUMIN/GLOBULIN RATIO 0.8 (1.1-1.5); ALKALINE PHOSPHATASE 456 IU/L (46-116); ANION GAP 9 (8-16); ASPARTATE AMINO TRANSFERASE 193 U/L (10-37); BILIRUBIN,TOTAL 0.3 MG/DL (0.1-1.0); BLOOD UREA NITROGEN 31 MG/DL (7-18); BUN/CREATININE RATIO 20.3 (10.0-20.0); CALCIUM 8.3 MG/DL (8.5-10.1); CHLORIDE 104 MMOL/L (99-107); CREATININE 1.53 MG/DL (0.40-0.90); GLUCOSE 74 MG/DL (70-104); POTASSIUM 4.3 MMOL/L (3.5-5.1); SODIUM 137 MMOL/L (135-145); TOTAL CARBON DIOXIDE 24.3 MMOL/L (24-32); TOTAL PROTEIN 6.6 G/DL (6.4-8.2); eCRCL 30 ML/MIN; eGFR 34 ML/MIN
[2023-01-15 19:42] LABS: PRO BRAIN NATRIURETIC PEPTIDE 12839 PG/ML (0-125)
--- NOTE | 2023-01-15 20:19 | NUR ---
I have reviewed and agree with all assessments done.
[2023-01-15] MEDS ORDERED: acetaminophen 325mg tablet PO STA (20:30)
[2023-01-15] MEDS ORDERED: ondansetron 4mg rapidly disintigrating tab PO ONE (20:35)
[2023-01-15] MEDS ORDERED: traMADol 50MG tablet PO ONE (20:35)
[2023-01-15 20:40] LABS: TOTAL CELLS COUNTED 100
[2023-01-15 20:42] LABS: ANISOCYTOSIS 1+; PLATELET ESTIMATE NORMAL
[2023-01-15 20:45] LABS: ELLIPTOCYTES FEW
[2023-01-15 20:49] LABS: TOXIC GRANULATION 1+
[2023-01-15 21:33] LABS: LIPASE 31 U/L (16-77)
[2023-01-15 22:09] VITALS: BP 97/61; PULSE 63; RESP 16; TEMP 98.2; O2SAT 94
== END 2023-01-15 22:11 | disposition home or self-care (01) ==
LOC: ER 18:42
DX: R07.9 Chest pain, unspecified (principal); R53.1 Weakness; R51.9 Headache, unspecified; I11.0 Hypertensive heart disease with heart failure; E11.9 Type 2 diabetes mellitus without complications; J44.9 Chronic obstructive pulmonary disease, unspecified; E07.9 Disorder of thyroid, unspecified; Z79.899 Other long term (current) drug therapy
CPT/HCPCS: 36415; 70450; 71045; 72170; 76700; 80053; 83690; 83880; 84484; 85007; 85025; 85610; 93005; 99285

== ENCOUNTER 2023-01-26 15:25 | Emergency (ER) | payer BC ==
[~2023-01-26] VITALS: Ht 160 cm; Wt 67.3 kg
[~2023-01-26 15:25] MED LIST changes: -CEPH-585 PO
--- NOTE | 2023-01-26 15:35 | NUR ---
MSE COMPLETE BY KISHOR JOHNSON
[2023-01-26 16:04] LABS: BASOPHILS # (AUTO) 0.1 X10'3 (0-0.2); BASOPHILS % (AUTO) 1.1 % (0-1); EOSINOPHILS # (AUTO) 0.4 X10'3 (0-0.9); HEMATOCRIT 40.7 % (35.0-45.0); HEMOGLOBIN 12.8 g/dl (12.0-16.0); LYMPHOCYTES # (AUTO) 1.9 X10'3 (1.1-4.8); MEAN CORPUSCULAR HEMOGLOBIN 30.1 PG (27.0-31.0); MEAN CORPUSCULAR HGB CONC 31.4 g/dL (33.0-36.5); MEAN CORPUSCULAR VOLUME 95.8 FL (78-98); MEAN PLATELET VOLUME 7.2 FL (7.4-10.4); MONOCYTES # (AUTO) 1.1 X10'3 (0-0.9); MONOCYTES % (AUTO) 10.7 % (2-12); NEUTROPHILS # (AUTO) 6.8 X10'3 (1.8-7.7); NEUTROPHILS % (AUTO) 66.2 % (42-75); PLATELET COUNT 441 X10'3 (140-440); RED BLOOD COUNT 4.24 X10'6 (4.20-5.60); RED CELL DISTRIBUTION WIDTH 17.8 % (11.5-14.5); WHITE BLOOD COUNT 10.3 X10'3 (4.5-11.0)
[2023-01-26 16:06] LABS: BILIRUBIN,URINE NEGATIVE (Neg); CLARITY,URINE TURBID (Clear); COLOR,URINE YELLOW (Yellow); GLUCOSE, URINE 250 mg/dl (Neg); KETONES,URINE TRACE mg/dl (Neg); LEUKOCYTE ESTERASE ,URINE SMALL (Neg); NITRITES, URINE POSITIVE (Neg); OCCULT BLOOD,URINE TRACE-INTACT (Neg); PROTEIN,URINE TRACE mg/dl (Neg); UROBILINOGEN,URINE 0.2 E.U/dL (0.2-1.0)
[2023-01-26 16:12] LABS: UA COLLECTION TYPE CLN CATCH MIDSTREAM
[2023-01-26 16:13] LABS: BACTERIA,URINE 3+ /HPF (Neg); SQUAMOUS EPITHELIAL CELL,UR MANY /LPF (FEW); WBC,URINE TNTC /HPF (0-4)
[2023-01-26 16:15] LABS: CAL OXALATE CRYSTALS 1+ /HPF (NEGATIVE)
[2023-01-26 16:19] LABS: ALANINE AMINOTRANSFERASE 32 U/L (12-78); ALBUMIN 3.3 G/DL (3.4-5.0); ALBUMIN/GLOBULIN RATIO 0.8 (1.1-1.5); ALKALINE PHOSPHATASE 286 IU/L (46-116); ANION GAP 7 (8-16); ASPARTATE AMINO TRANSFERASE 43 U/L (10-37); BILIRUBIN,TOTAL 0.3 MG/DL (0.1-1.0); BLOOD UREA NITROGEN 28 MG/DL (7-18); BUN/CREATININE RATIO 16.8 (10.0-20.0); CALCIUM 8.6 MG/DL (8.5-10.1); CHLORIDE 104 MMOL/L (99-107); CREATININE 1.67 MG/DL (0.40-0.90); GLUCOSE 68 MG/DL (70-104); LIPASE 61 U/L (16-77); POTASSIUM 4.6 MMOL/L (3.5-5.1); SODIUM 137 MMOL/L (135-145); TOTAL CARBON DIOXIDE 26.3 MMOL/L (24-32); TOTAL PROTEIN 7.4 G/DL (6.4-8.2); eCRCL 27 ML/MIN; eGFR 31 ML/MIN
[2023-01-26] MEDS ORDERED: cephalexin 250mg capsule PO ONE (17:45)
[2023-01-26] MEDS ORDERED: aspirin 81mg tab.chew PO ONE (18:00)
--- NOTE | 2023-01-26 18:06 | NUR ---
PATIENT STATING PAIN IN CHEST IS A TIGHTNESS AND RATING IT 8/10. ELIZABETH GREEN NOTIFIED. 324 ASA ORDERED AND EKG. WILL CONTINUE TO MONITOR.
[2023-01-26] MEDS ORDERED: CEPH-585 PO (18:47)
[2023-01-26] MEDS ORDERED: ondansetron/PF 4mg/2ml inj IV ONE (19:50)
[2023-01-26] MEDS ORDERED: morphine 4 MG/ML inj SYRINge IV ONE ×2 (19:50→21:20)
[2023-01-26 19:56] LABS: BILIRUBIN,URINE NEGATIVE (Neg); CLARITY,URINE SLIGHTLY CLOUDY (Clear); COLOR,URINE YELLOW (Yellow); GLUCOSE, URINE 250 mg/dl (Neg); KETONES,URINE NEGATIVE (Neg); LEUKOCYTE ESTERASE ,URINE TRACE (Neg); NITRITES, URINE POSITIVE (Neg); OCCULT BLOOD,URINE NEGATIVE (Neg); PROTEIN,URINE TRACE mg/dl (Neg); UROBILINOGEN,URINE 0.2 E.U/dL (0.2-1.0)
[2023-01-26 20:07] LABS: UA COLLECTION TYPE STRAIGHT CATH
[2023-01-26 20:08] LABS: WBC,URINE 30-50 /HPF (0-4)
[2023-01-26 20:09] LABS: BACTERIA,URINE 4+ /HPF (Neg); MUCUS STRANDS FEW /LPF (Neg); RBC,URINE 0-2 /HPF (0-2); SQUAMOUS EPITHELIAL CELL,UR FEW /LPF (FEW); WBC CLUMPS,URINE MODERATE /HPF (NEGATIVE)
[2023-01-26] MEDS ORDERED: ondansetron 4mg rapidly disintigrating tab PO ONE (21:20)
--- NOTE | 2023-01-26 21:25 | NUR ---
patient agreed to leave her car keys in our safe overnight and take a taxi cab home in order to receive pain medications prior to discharge.
[2023-01-26 21:34] VITALS: BP 112/64; PULSE 64; RESP 18; TEMP 97.9; O2SAT 97
--- NOTE | 2023-01-27 02:49 | NUR ---
I AGREE WITH ASSESMENT OF ASHLEY AMBROSIO
== END 2023-01-26 21:57 | disposition still patient (30) ==
LOC: ER 15:27
DX: N39.0 Urinary tract infection, site not specified (principal); R07.9 Chest pain, unspecified; I11.0 Hypertensive heart disease with heart failure; J44.9 Chronic obstructive pulmonary disease, unspecified; E11.9 Type 2 diabetes mellitus without complications; E03.9 Hypothyroidism, unspecified; G89.29 Other chronic pain; M54.9 Dorsalgia, unspecified; Z79.899 Other long term (current) drug therapy
CPT/HCPCS: 36415; 71045; 80053; 81001; 83690; 84484; 85025; 87077; 87088; 87186; 93005; 96374; 99285; J2270; A4353

== ENCOUNTER 2023-01-28 17:48 | Emergency (ER) | payer BC ==
[~2023-01-28] VITALS: Ht 157.5 cm; Wt 61.7 kg
[~2023-01-28 17:48] MED LIST changes: +CEPH-585 PO
[2023-01-28] MEDS ORDERED: ondansetron 4mg rapidly disintigrating tab PO ONE (17:55)
[2023-01-28] MEDS ORDERED: CefTRIAXone 1000mg IM Kit (w/lidocaine diluent) IM ONE (18:20)
[2023-01-28 18:26] VITALS: BP 110/63; PULSE 73; TEMP 98.5; O2SAT 99
[2023-01-28 18:26] LABS: BILIRUBIN,URINE NEGATIVE (Neg); CLARITY,URINE SLIGHTLY CLOUDY (Clear); COLOR,URINE YELLOW (Yellow); GLUCOSE, URINE 500 mg/dl (Neg); KETONES,URINE NEGATIVE (Neg); LEUKOCYTE ESTERASE ,URINE NEGATIVE (Neg); NITRITES, URINE NEGATIVE (Neg); OCCULT BLOOD,URINE TRACE-INTACT (Neg); PROTEIN,URINE NEGATIVE (Neg); UROBILINOGEN,URINE 0.2 E.U/dL (0.2-1.0)
[2023-01-28 18:29] LABS: BASOPHILS # (AUTO) 0.1 X10'3 (0-0.2); BASOPHILS % (AUTO) 0.7 % (0-1); EOSINOPHILS # (AUTO) 0.3 X10'3 (0-0.9); EOSINOPHILS % (AUTO) 2.6 % (0-6); HEMOGLOBIN 13.1 g/dl (12.0-16.0); LYMPHOCYTES # (AUTO) 1.9 X10'3 (1.1-4.8); LYMPHOCYTES % (AUTO) 15.6 % (21-51); MEAN CORPUSCULAR HGB CONC 31.3 g/dL (33.0-36.5); MEAN CORPUSCULAR VOLUME 95.9 FL (78-98); MEAN PLATELET VOLUME 7.3 FL (7.4-10.4); MONOCYTES # (AUTO) 1.2 X10'3 (0-0.9); MONOCYTES % (AUTO) 9.7 % (2-12); NEUTROPHILS # (AUTO) 8.8 X10'3 (1.8-7.7); NEUTROPHILS % (AUTO) 71.4 % (42-75); PLATELET COUNT 485 X10'3 (140-440); RED BLOOD COUNT 4.38 X10'6 (4.20-5.60); RED CELL DISTRIBUTION WIDTH 17.8 % (11.5-14.5); WHITE BLOOD COUNT 12.4 X10'3 (4.5-11.0)
[2023-01-28] MEDS ORDERED: acetaminophen 325mg tablet PO ONE (18:30)
[2023-01-28] MEDS ORDERED: phenazopyridine 100mg tablet PO ONE (18:30)
[2023-01-28] MEDS ORDERED: traMADol 50MG tablet PO ONE (18:30)
[2023-01-28 18:37] LABS: UA COLLECTION TYPE CLN CATCH MIDSTREAM
[2023-01-28 18:39] LABS: SQUAMOUS EPITHELIAL CELL,UR MANY /LPF (FEW)
[2023-01-28 18:40] LABS: BACTERIA,URINE 3+ /HPF (Neg); RBC,URINE 0-2 /HPF (0-2); WBC,URINE 0-4 /HPF (0-4)
[2023-01-28 18:41] VITALS: RESP 17
[2023-01-28 18:42] LABS: ALANINE AMINOTRANSFERASE 34 U/L (12-78); ALBUMIN 3.4 G/DL (3.4-5.0); ALBUMIN/GLOBULIN RATIO 0.7 (1.1-1.5); ALKALINE PHOSPHATASE 294 IU/L (46-116); ANION GAP 11 (8-16); ASPARTATE AMINO TRANSFERASE 35 U/L (10-37); BILIRUBIN,TOTAL 0.3 MG/DL (0.1-1.0); BLOOD UREA NITROGEN 25 MG/DL (7-18); BUN/CREATININE RATIO 16.2 (10.0-20.0); CALCIUM 8.9 MG/DL (8.5-10.1); CHLORIDE 103 MMOL/L (99-107); CREATININE 1.54 MG/DL (0.40-0.90); GLUCOSE 103 MG/DL (70-104); LIPASE 55 U/L (16-77); POTASSIUM 4.3 MMOL/L (3.5-5.1); SODIUM 137 MMOL/L (135-145); TOTAL CARBON DIOXIDE 23.2 MMOL/L (24-32); eCRCL 28 ML/MIN; eGFR 34 ML/MIN
[2023-01-28] MEDS ORDERED: ONDA4TAB12 PO (19:02)
[2023-01-28] MEDS ORDERED: SULF1TAB49 PO (19:02)
== END 2023-01-28 19:17 | disposition home or self-care (01) ==
LOC: ER 17:49
DX: N39.0 Urinary tract infection, site not specified (principal); I11.0 Hypertensive heart disease with heart failure; I50.9 Heart failure, unspecified; J44.9 Chronic obstructive pulmonary disease, unspecified; E11.9 Type 2 diabetes mellitus without complications; E03.9 Hypothyroidism, unspecified; F31.9 Bipolar disorder, unspecified; Z79.899 Other long term (current) drug therapy; Z79.2 Long term (current) use of antibiotics
CPT/HCPCS: 36415; 80053; 81001; 83690; 85025; 96372; 99284; J0696

== ENCOUNTER 2023-02-08 00:33 | Emergency (ER) | payer BC ==
[~2023-02-08] VITALS: Ht 160 cm; Wt 65.9 kg
[~2023-02-08 00:33] MED LIST changes: +ONDA4TAB12 PO
[2023-02-08] MEDS ORDERED: acetaminophen 325mg tablet PO ONE (02:45)
[2023-02-08] MEDS ORDERED: ibuprofen 200mg tablet PO ONE (02:45)
--- NOTE | 2023-02-08 03:09 | NUR ---
PT REFUSED ORDERED TYLENOL AND IBU STATING THAT SHE TRIED TAKING TWO TYLENOL EARLIER AND THAT IT DIDN'T HELP. MADE AWARE. NO NEW ORDERS. PT DROVE HERSELF TO ED.
[2023-02-08 04:25] LABS: EOSINOPHILS % (AUTO) 9.3 % (0-6); MEAN CORPUSCULAR HEMOGLOBIN 30.5 PG (27.0-31.0); WHITE BLOOD COUNT 5.9 X10'3 (4.5-11.0)
[2023-02-08 04:27] LABS: BASOPHILS # (AUTO) 0.1 X10'3 (0-0.2); BASOPHILS % (AUTO) 1.1 % (0-1); EOSINOPHILS # (AUTO) 0.5 X10'3 (0-0.9); HEMATOCRIT 35.9 % (35.0-45.0); HEMOGLOBIN 11.6 g/dl (12.0-16.0); LYMPHOCYTES # (AUTO) 2.1 X10'3 (1.1-4.8); LYMPHOCYTES % (AUTO) 36.4 % (21-51); MEAN CORPUSCULAR HGB CONC 32.2 g/dL (33.0-36.5); MEAN CORPUSCULAR VOLUME 94.6 FL (78-98); MEAN PLATELET VOLUME 7.1 FL (7.4-10.4); MONOCYTES # (AUTO) 0.6 X10'3 (0-0.9); NEUTROPHILS # (AUTO) 2.5 X10'3 (1.8-7.7); NEUTROPHILS % (AUTO) 43.2 % (42-75); PLATELET COUNT 326 X10'3 (140-440); RED CELL DISTRIBUTION WIDTH 17.4 % (11.5-14.5)
[2023-02-08 04:34] LABS: D-DIMER 1.65 MG/L FEU (0-0.50); INR 2.7 INR; PROTHROMBIN TIME 27.2 SECONDS (9.0-12.0)
[2023-02-08 04:36] LABS: ALANINE AMINOTRANSFERASE 51 U/L (12-78); ALBUMIN/GLOBULIN RATIO 0.9 (1.1-1.5); ALKALINE PHOSPHATASE 234 IU/L (46-116); ANION GAP 5 (8-16); ASPARTATE AMINO TRANSFERASE 50 U/L (10-37); BILIRUBIN,TOTAL 0.2 MG/DL (0.1-1.0); BLOOD UREA NITROGEN 29 MG/DL (7-18); BUN/CREATININE RATIO 20.9 (10.0-20.0); CALCIUM 8.2 MG/DL (8.5-10.1); CHLORIDE 104 MMOL/L (99-107); CREATININE 1.39 MG/DL (0.40-0.90); GLUCOSE 87 MG/DL (70-104); POTASSIUM 4.1 MMOL/L (3.5-5.1); SODIUM 137 MMOL/L (135-145); TOTAL CARBON DIOXIDE 28.4 MMOL/L (24-32); TOTAL PROTEIN 6.5 G/DL (6.4-8.2); eCRCL 32 ML/MIN; eGFR 38 ML/MIN
[2023-02-08] MEDS ORDERED: HYDROcodone/acetaminophen 10/325mg tab PO ONE (06:15)
--- NOTE | 2023-02-08 06:53 | NUR ---
PT. C/O COVID LIKE SYMPTOMS COUGH, GENERAL BODY ACHES AND SOME CONGESTION. STATES HAS COVID. COVID TEST ORDERED AND COMPLETED PER [facility].
--- NOTE | 2023-02-08 07:35 | NUR ---
PT. INFORMED OF NEGATIVE COVID RESULTS.
[2023-02-08 07:36] VITALS: BP 115/65; PULSE 61; RESP 12; TEMP 98.1; O2SAT 95
== END 2023-02-08 07:38 | disposition home or self-care (01) ==
LOC: ER 00:34
DX: M79.601 Pain in right arm (principal); Z20.822 Contact with and (suspected) exposure to COVID-19; G43.909 Migraine, unspecified, not intractable, without status migrainosus; I11.0 Hypertensive heart disease with heart failure; I50.9 Heart failure, unspecified; E11.9 Type 2 diabetes mellitus without complications; E03.9 Hypothyroidism, unspecified; F31.9 Bipolar disorder, unspecified; Z79.899 Other long term (current) drug therapy; Z79.2 Long term (current) use of antibiotics
CPT/HCPCS: 36415; 80053; 85025; 85379; 85610; 87811; 93971; 99285

== ENCOUNTER → 2023-05-01 | Emergency (ER) | payer BC ==
[~2023-05-01] VITALS: Ht 160 cm; Wt 147.0 kg
[~2023-05-01] MED LIST changes: -CEPH-585 PO; +LACT1CAP26 PO; -WARF-55 PO
[2023-05-01 14:19] VITALS: BP 126/63; PULSE 72; TEMP 98.8; O2SAT 97
[2023-05-01 17:00] VITALS: RESP 18
[2023-05-01] MEDS: HYDROcodone/acetaminophen 5mg/325mg tablet PO ONE (17:00)
== END | disposition home or self-care (01) ==
LOC: ER 14:06
DX: S13.4XXA Sprain of ligaments of cervical spine, initial encounter (principal); S80.11XA Contusion of right lower leg, initial encounter; S09.90XA Unspecified injury of head, initial encounter; G43.909 Migraine, unspecified, not intractable, without status migrainosus; I11.0 Hypertensive heart disease with heart failure; I50.9 Heart failure, unspecified; E03.9 Hypothyroidism, unspecified; E11.9 Type 2 diabetes mellitus without complications; F31.9 Bipolar disorder, unspecified; Z79.899 Other long term (current) drug therapy; Z79.2 Long term (current) use of antibiotics; W19.XXXA Unspecified fall, initial encounter; Y93.89 Activity, other specified; Y92.89 Other specified places as the place of occurrence of the external cause; Y99.8 Other external cause status
CPT/HCPCS: 70450; 72125; 73590; 99284

== ENCOUNTER 2023-05-09 12:36 | Inpatient (IN) | payer BC ==
[~2023-05-09] VITALS: Ht 157.5 cm; Wt 81.2 kg
[~2023-05-09 12:36] MED LIST changes: +CEFD300C3 PO; -CELE200C PO; +CYAN500T71 PO; -CYCL-1 PO; -EMPA10TA PO; +HYDR-3968 PO; -HYDR-3973 PO; -HYDR50TA65 PO; -LACT1CAP26 PO; +LACT1CAP65 PO; +LAMO100T PO; -LAMO25TA5 PO; +LEVO50TA8 PO; -LEVO75TA7 PO; -LOP12.5T PO; +METO-384 PO; +MULT-1085 PO; +PRED10TA23 PO; -SUCR1TAB PO; +TIZA-205 PO
[2023-05-09 13:54] LABS: BASOPHILS % (AUTO) 0.2 % (0-1); EOSINOPHILS # (AUTO) 0.3 X10'3 (0-0.9); EOSINOPHILS % (AUTO) 4.2 % (0-6); LYMPHOCYTES # (AUTO) 0.9 X10'3 (1.1-4.8); LYMPHOCYTES % (AUTO) 14.6 % (21-51); MEAN CORPUSCULAR HEMOGLOBIN 30.6 PG (27.0-31.0); MEAN CORPUSCULAR HGB CONC 30.1 g/dL (33.0-36.5); MEAN CORPUSCULAR VOLUME 101.7 FL (78-98); MEAN PLATELET VOLUME 6.9 FL (7.4-10.4); MONOCYTES # (AUTO) 0.5 X10'3 (0-0.9); NEUTROPHILS # (AUTO) 4.7 X10'3 (1.8-7.7); PLATELET COUNT 238 X10'3 (140-440); RED CELL DISTRIBUTION WIDTH 22.4 % (11.5-14.5); WHITE BLOOD COUNT 6.5 X10'3 (4.5-11.0)
[2023-05-09 14:02] LABS: HEMATOCRIT 18.3 % (35.0-45.0); HEMOGLOBIN 5.5 g/dl (12.0-16.0)
[2023-05-09 14:23] LABS: LARGE PLATELETS FEW; PLATELET ESTIMATE NORMAL
[2023-05-09 14:24] LABS: ANISOCYTOSIS 3+
[2023-05-09 14:25] LABS: MICROCYTOSIS 1+
[2023-05-09 14:34] LABS: ALBUMIN 3.8 G/DL (3.4-5.0); ANION GAP 10 (8-16); BLOOD UREA NITROGEN 4 MG/DL (7-18); BUN/CREATININE RATIO 5.3 (10.0-20.0); CALCIUM 8.3 MG/DL (8.5-10.1); CHLORIDE 103 MMOL/L (99-107); CREATININE 0.75 MG/DL (0.40-0.90); GLUCOSE 84 MG/DL (70-104); POTASSIUM 3.7 MMOL/L (3.5-5.1); PRO BRAIN NATRIURETIC PEPTIDE 206 PG/ML (0-125); SODIUM 142 MMOL/L (135-145); TOTAL CARBON DIOXIDE 28.8 MMOL/L (24-32); eCRCL 60 ML/MIN; eGFR 77 ML/MIN
[2023-05-09] MEDS ORDERED: pantoprazole 40mg IV 80 MG in normal saline 100ml IV soln 100 ML IV ONE (15:20)
[2023-05-09] MEDS: morphine 4 MG/ML inj SYRINge IV ONE (15:50)
[2023-05-09] MEDS: pantoprazole 40 MG vial IV ONE (15:56)
[2023-05-09] MEDS: CefTRIAXone/D5W-Rocephin 1gm 50 ML IV ONE (15:56)
[2023-05-09 16:10] LABS: APTT 30 SECONDS (22-32); INR 1.5 INR; PROTHROMBIN TIME 15.3 SECONDS (9.0-12.0)
[2023-05-09] MEDS: pantoprazole 40MG/NS 100ML BAG 100 ML IV SCH (16:18)
[2023-05-09 19:07] LABS: OCCULT BLOOD STOOL POSITIVE (Neg)
[2023-05-09] MEDS ORDERED: magnesium 2GM in 50ml NS 50 ML IV PRN (20:40)
[2023-05-09] MEDS ORDERED: potassium Cl 20 mEq SR tablet PO PRN ×2 (20:40)
[2023-05-09] MEDS ORDERED: ondansetron/PF 4mg/2ml inj IV PRN (20:40)
[2023-05-09] MEDS ORDERED: potassium Cl 40MEQ/1/2NS 520ml 520 ML IV PRN (20:40)
[2023-05-09] MEDS ORDERED: mag hydrox/Alum hydrox/simeth 30ml oral suspension PO PRN (20:40)
[2023-05-09] MEDS ORDERED: magnesium 4gm in 100ml NS 100 ML IV PRN (20:40)
[2023-05-09] MEDS ORDERED: HYDROcodone/acetaminophen 5mg/325mg tablet PO PRN (20:40)
[2023-05-09] MEDS ORDERED: magnesium Cl slow-release 64mg tablet PO PRN (20:40)
[2023-05-09] MEDS ORDERED: acetaminophen 325mg tablet PO PRN (20:40)
[2023-05-09] MEDS ORDERED: phytonadione inj. 2 MG in normal saline 100ml IV soln 100 ML IV ONE (20:50)
[2023-05-09] MEDS ORDERED: tranexamic acid inj. 1,000 MG in normal saline 100ml IV soln 90 ML IV ONE (20:50)
[2023-05-09] MEDS: morphine 2 MG/ML inj. syringe IV PRN (21:07)
[2023-05-09 21:20] VITALS: BP 137/79; PULSE 56; RESP 14; TEMP 97.9
[2023-05-09] MEDS ORDERED: PEG 3350/Na sulf,bicarb,Cl/KCl oral sol 4 liter bottle PO ONE (21:20)
[2023-05-09] MEDS ORDERED: normal saline 1000ml 1,000 ML IV SCH (21:25)
[2023-05-09 21:30] VITALS: BP 137/71; PULSE 58; RESP 13; TEMP 97.9
[2023-05-09 22:33] LABS: BILIRUBIN,URINE NEGATIVE (Neg); CLARITY,URINE CLEAR (Clear); COLOR,URINE YELLOW (Yellow); GLUCOSE, URINE NEGATIVE (Neg); KETONES,URINE NEGATIVE (Neg); LEUKOCYTE ESTERASE ,URINE NEGATIVE (Neg); NITRITES, URINE NEGATIVE (Neg); OCCULT BLOOD,URINE NEGATIVE (Neg); PROTEIN,URINE NEGATIVE (Neg); UROBILINOGEN,URINE 0.2 E.U/dL (0.2-1.0)
[2023-05-09 22:38] LABS: UA COLLECTION TYPE VOIDED
[2023-05-09 22:56] LABS: URINE AMPHETAMINE SCREEN NEGATIVE (Neg); URINE BARBITUATE SCREEN NEGATIVE (Neg); URINE BENZODIAZEPINES SCREEN NEGATIVE (Neg); URINE CANNABINOID SCREEN NEGATIVE (Neg); URINE COCAINE SCREEN NEGATIVE (Neg); URINE METHADONE SCREEN NEGATIVE (Neg); URINE OPIATE SCREEN POSITIVE (Neg); URINE PHENCYCLIDINE SCREEN NEGATIVE (Neg)
[2023-05-09 23:10] VITALS: BP 152/82; PULSE 59; RESP 10; TEMP 97.8
[2023-05-09 23:11] VITALS: BP 143/86; PULSE 60; RESP 10; TEMP 97.8
[2023-05-09] MEDS: HYDROcodone/acetaminophen 10/325mg tab PO PRN (23:18)
[2023-05-09 23:21] LABS: HEMATOCRIT 30.1 % (35.0-45.0); MEAN CORPUSCULAR HEMOGLOBIN 31.4 PG (27.0-31.0); MEAN CORPUSCULAR HGB CONC 33.2 g/dL (33.0-36.5); MEAN CORPUSCULAR VOLUME 94.6 FL (78-98); MEAN PLATELET VOLUME 6.8 FL (7.4-10.4); PLATELET COUNT 353 X10'3 (140-440); RED BLOOD COUNT 3.18 X10'6 (4.20-5.60); WHITE BLOOD COUNT 8.5 X10'3 (4.5-11.0)
[2023-05-09 23:29] VITALS: BP 137/84; PULSE 60; RESP 12; TEMP 97.8
[2023-05-09 23:33] LABS: ALANINE AMINOTRANSFERASE 27 U/L (12-78); ALKALINE PHOSPHATASE 211 IU/L (46-116); ANION GAP 11 (8-16); ASPARTATE AMINO TRANSFERASE 25 U/L (10-37); BILIRUBIN,TOTAL 1.1 MG/DL (0.1-1.0); BLOOD UREA NITROGEN 48 MG/DL (7-18); BUN/CREATININE RATIO 33.6 (10.0-20.0); CALCIUM 6.9 MG/DL (8.5-10.1); CHLORIDE 108 MMOL/L (99-107); CREATININE 1.43 MG/DL (0.40-0.90); GLUCOSE 77 MG/DL (70-104); POTASSIUM 3.9 MMOL/L (3.5-5.1); SODIUM 142 MMOL/L (135-145); TOTAL CARBON DIOXIDE 23.3 MMOL/L (24-32); TOTAL PROTEIN 6.1 G/DL (6.4-8.2); eCRCL 32 ML/MIN; eGFR 37 ML/MIN
[2023-05-09 23:44] VITALS: BP 144/93; PULSE 61; RESP 12; TEMP 97.6
[2023-05-10] VITALS (14 sets, daily range): BP systolic 143–173; BP diastolic 82–103; PULSE 62–80; RESP 12–23; TEMP 97.4–98.1; O2SAT 94–99
[2023-05-10] MEDS: PEG 3350/Na sulf,bicarb,Cl/KCl oral sol 4 liter bottle PO ONE (00:45)
[2023-05-10 02:23] LABS: HEMATOCRIT 33.1 % (35.0-45.0); HEMOGLOBIN 11.1 g/dl (12.0-16.0); MEAN CORPUSCULAR HEMOGLOBIN 31.4 PG (27.0-31.0); MEAN CORPUSCULAR HGB CONC 33.4 g/dL (33.0-36.5); MEAN PLATELET VOLUME 6.8 FL (7.4-10.4); PLATELET COUNT 365 X10'3 (140-440); RED BLOOD COUNT 3.52 X10'6 (4.20-5.60); RED CELL DISTRIBUTION WIDTH 19.3 % (11.5-14.5); WHITE BLOOD COUNT 9.2 X10'3 (4.5-11.0)
[2023-05-10 02:42] LABS: % IRON SATURATION 31 % (11-46); IRON 96 UG/DL (49-151); TOTAL IRON BINDING CAPACITY 306 UG/DL (259-388)
[2023-05-10] MEDS: ringers solution, lacted 1,000 ML IV SCH (03:39)
[2023-05-10] MEDS: morphine 2 MG/ML inj. syringe IV PRN (05:16)
[2023-05-10 06:19] LABS: BASOPHILS % (AUTO) 0.2 % (0-1); EOSINOPHILS # (AUTO) 0.9 X10'3 (0-0.9); EOSINOPHILS % (AUTO) 10.8 % (0-6); HEMATOCRIT 35.6 % (35.0-45.0); HEMOGLOBIN 11.7 g/dl (12.0-16.0); LYMPHOCYTES # (AUTO) 1.7 X10'3 (1.1-4.8); MEAN PLATELET VOLUME 6.9 FL (7.4-10.4); MONOCYTES # (AUTO) 0.6 X10'3 (0-0.9); MONOCYTES % (AUTO) 7.1 % (2-12); NEUTROPHILS # (AUTO) 5.4 X10'3 (1.8-7.7); NEUTROPHILS % (AUTO) 61.9 % (42-75); PLATELET COUNT 407 X10'3 (140-440); RED BLOOD COUNT 3.78 X10'6 (4.20-5.60); RED CELL DISTRIBUTION WIDTH 19.7 % (11.5-14.5); WHITE BLOOD COUNT 8.7 X10'3 (4.5-11.0)
[2023-05-10 06:28] LABS: APTT 34 SECONDS (22-32); INR 1.4 INR; PROTHROMBIN TIME 14.5 SECONDS (9.0-12.0)
[2023-05-10 06:59] LABS: ALANINE AMINOTRANSFERASE 31 U/L (12-78); ALBUMIN 3.3 G/DL (3.4-5.0); ALBUMIN/GLOBULIN RATIO 0.9 (1.1-1.5); ALKALINE PHOSPHATASE 250 IU/L (46-116); ANION GAP 8 (8-16); ASPARTATE AMINO TRANSFERASE 31 U/L (10-37); BILIRUBIN,TOTAL 1.4 MG/DL (0.1-1.0); BLOOD UREA NITROGEN 42 MG/DL (7-18); BUN/CREATININE RATIO 31.3 (10.0-20.0); CALCIUM 7.9 MG/DL (8.5-10.1); CHLORIDE 107 MMOL/L (99-107); CHOL/HDL RATIO 3.1 (0.00-4.99); CHOLESTEROL 175 MG/DL (0-200); CREATININE 1.34 MG/DL (0.40-0.90); FERRITIN 150 NG/ML (8-252); FREE T4 (FREE THYROXINE) 0.91 NG/DL (0.73-1.40); GLUCOSE 67 MG/DL (70-104); HDL CHOLESTEROL 56 MG/DL (35-60); LDL CHOLESTEROL 92 MG/DL (50-100); MAGNESIUM 2.6 MG/DL (1.5-2.4); PHOSPHORUS 3.1 MG/DL (2.3-4.5); SODIUM 140 MMOL/L (135-145); TOTAL CARBON DIOXIDE 24.8 MMOL/L (24-32); TOTAL PROTEIN 6.9 G/DL (6.4-8.2); TRIGLYCERIDES 135 MG/DL (20-135); eCRCL 34 ML/MIN; eGFR 39 ML/MIN
[2023-05-10] MEDS: K and/or MAG REPLACEMENT MC SCH (08:00)
[2023-05-10] MEDS ORDERED: metoprolol tartrate 25mg tablet PO SCH (08:00)
[2023-05-10 11:15] LABS: HEMATOCRIT 34.5 % (35.0-45.0); HEMOGLOBIN 11.4 g/dl (12.0-16.0); MEAN CORPUSCULAR HEMOGLOBIN 30.7 PG (27.0-31.0); MEAN CORPUSCULAR VOLUME 93.1 FL (78-98); MEAN PLATELET VOLUME 6.7 FL (7.4-10.4); PLATELET COUNT 359 X10'3 (140-440); RED CELL DISTRIBUTION WIDTH 19.2 % (11.5-14.5); WHITE BLOOD COUNT 9.1 X10'3 (4.5-11.0)
[2023-05-10 14:48] LABS: HEMATOCRIT 35.9 % (35.0-45.0); HEMOGLOBIN 11.8 g/dl (12.0-16.0); MEAN CORPUSCULAR HEMOGLOBIN 30.9 PG (27.0-31.0); MEAN CORPUSCULAR VOLUME 93.8 FL (78-98); MEAN PLATELET VOLUME 6.8 FL (7.4-10.4); PLATELET COUNT 389 X10'3 (140-440); RED BLOOD COUNT 3.83 X10'6 (4.20-5.60); RED CELL DISTRIBUTION WIDTH 19.5 % (11.5-14.5); WHITE BLOOD COUNT 9.3 X10'3 (4.5-11.0)
[2023-05-10] MEDS: CefTRIAXone/D5W-Rocephin 1gm 50 ML IV SCH (14:54)
[2023-05-10] MEDS ORDERED: fentaNYL/PF 50MCG/1 ML 2ML syringe ONE (17:34)
[2023-05-10] MEDS ORDERED: MIDAZolam 1 MG/ML 5ML VIAL ONE (17:34)
[2023-05-11] VITALS (7 sets, daily range): BP systolic 140–177; BP diastolic 87–93; PULSE 68–79; RESP 12–18; TEMP 97.7–98.5; O2SAT 95–99
[2023-05-11 08:38] LABS: BASOPHILS % (AUTO) 0.2 % (0-1); EOSINOPHILS # (AUTO) 1.1 X10'3 (0-0.9); EOSINOPHILS % (AUTO) 11.1 % (0-6); HEMATOCRIT 38.6 % (35.0-45.0); HEMOGLOBIN 12.4 g/dl (12.0-16.0); LYMPHOCYTES # (AUTO) 1.1 X10'3 (1.1-4.8); LYMPHOCYTES % (AUTO) 11.4 % (21-51); MEAN CORPUSCULAR HEMOGLOBIN 30.9 PG (27.0-31.0); MEAN CORPUSCULAR HGB CONC 32.1 g/dL (33.0-36.5); MEAN CORPUSCULAR VOLUME 96.2 FL (78-98); MEAN PLATELET VOLUME 6.7 FL (7.4-10.4); MONOCYTES # (AUTO) 0.8 X10'3 (0-0.9); MONOCYTES % (AUTO) 7.8 % (2-12); NEUTROPHILS # (AUTO) 6.8 X10'3 (1.8-7.7); NEUTROPHILS % (AUTO) 69.5 % (42-75); PLATELET COUNT 402 X10'3 (140-440); RED BLOOD COUNT 4.01 X10'6 (4.20-5.60); RED CELL DISTRIBUTION WIDTH 20.4 % (11.5-14.5); WHITE BLOOD COUNT 9.8 X10'3 (4.5-11.0)
[2023-05-11 08:48] LABS: APTT 38 SECONDS (22-32); INR 1.3 INR; PROTHROMBIN TIME 13.5 SECONDS (9.0-12.0)
[2023-05-11 10:05] LABS: PLATELET ESTIMATE NORMAL; TOTAL CELLS COUNTED 100
[2023-05-11 10:27] LABS: ANISOCYTOSIS 3+; BURR CELLS FEW
[2023-05-11 10:28] LABS: ELLIPTOCYTES FEW; POLYCHROMASIA FEW; SCHISTOCYTES FEW
[2023-05-11 10:30] LABS: TEAR DROP CELLS FEW; TOXIC GRANULATION 1+
[2023-05-11 10:39] LABS: ALANINE AMINOTRANSFERASE 24 U/L (12-78); ALBUMIN 3.1 G/DL (3.4-5.0); ALBUMIN/GLOBULIN RATIO 0.9 (1.1-1.5); ALKALINE PHOSPHATASE 234 IU/L (46-116); ANION GAP 9 (8-16); ASPARTATE AMINO TRANSFERASE 34 U/L (10-37); BILIRUBIN,TOTAL 1.4 MG/DL (0.1-1.0); BLOOD UREA NITROGEN 18 MG/DL (7-18); BUN/CREATININE RATIO 20.7 (10.0-20.0); CALCIUM 8.3 MG/DL (8.5-10.1); CHLORIDE 108 MMOL/L (99-107); CREATININE 0.87 MG/DL (0.40-0.90); GLUCOSE 68 MG/DL (70-104); MAGNESIUM 2.1 MG/DL (1.5-2.4); PHOSPHORUS 2.8 MG/DL (2.3-4.5); SODIUM 142 MMOL/L (135-145); TOTAL CARBON DIOXIDE 24.8 MMOL/L (24-32); TOTAL PROTEIN 6.5 G/DL (6.4-8.2); eCRCL 52 ML/MIN; eGFR 65 ML/MIN
[2023-05-11 10:43] LABS: POTASSIUM 4.1 MMOL/L (3.5-5.1)
[2023-05-11 17:58] LABS: HEMATOCRIT 36.4 % (35.0-45.0); HEMOGLOBIN 12.3 g/dl (12.0-16.0); MEAN CORPUSCULAR HEMOGLOBIN 31.4 PG (27.0-31.0); MEAN CORPUSCULAR HGB CONC 33.7 g/dL (33.0-36.5); MEAN CORPUSCULAR VOLUME 93.1 FL (78-98); MEAN PLATELET VOLUME 6.7 FL (7.4-10.4); PLATELET COUNT 419 X10'3 (140-440); RED BLOOD COUNT 3.91 X10'6 (4.20-5.60); RED CELL DISTRIBUTION WIDTH 19.2 % (11.5-14.5)
[2023-05-11] MEDS ORDERED: ipratropium 0.5 MG/2.5ML nebule IH PRN (18:55)
[2023-05-11] MEDS: pantoprazole 40mg Tablet.DR PO SCH (20:06)
[2023-05-11] MEDS: buPROPion SR 100mg tab PO SCH (20:07)
[2023-05-11] MEDS: metoprolol succinate 25mg (24-HOUR) SR. Tablet PO SCH (20:08)
[2023-05-11] MEDS: traZODone 150mg tablet PO SCH (22:34)
[2023-05-12] VITALS (8 sets, daily range): BP systolic 123–157; BP diastolic 64–76; PULSE 52–72; RESP 14–21; TEMP 97.9–98.8; O2SAT 94–100
[2023-05-12] MEDS: lactobacillus rhamnosus 10,000 MMU CELLS/CAPSULE PO SCH (00:21)
[2023-05-12 07:34] LABS: BASOPHILS % (AUTO) 0.4 % (0-1); EOSINOPHILS # (AUTO) 0.8 X10'3 (0-0.9); HEMATOCRIT 33.8 % (35.0-45.0); HEMOGLOBIN 11.2 g/dl (12.0-16.0); LYMPHOCYTES # (AUTO) 1.3 X10'3 (1.1-4.8); MEAN CORPUSCULAR HEMOGLOBIN 31.1 PG (27.0-31.0); MEAN CORPUSCULAR HGB CONC 33.3 g/dL (33.0-36.5); MEAN CORPUSCULAR VOLUME 93.4 FL (78-98); MEAN PLATELET VOLUME 6.8 FL (7.4-10.4); MONOCYTES # (AUTO) 0.8 X10'3 (0-0.9); MONOCYTES % (AUTO) 8.8 % (2-12); NEUTROPHILS # (AUTO) 5.9 X10'3 (1.8-7.7); NEUTROPHILS % (AUTO) 66.8 % (42-75); PLATELET COUNT 369 X10'3 (140-440); RED BLOOD COUNT 3.62 X10'6 (4.20-5.60); RED CELL DISTRIBUTION WIDTH 19.9 % (11.5-14.5); WHITE BLOOD COUNT 8.8 X10'3 (4.5-11.0)
[2023-05-12 07:46] LABS: APTT 37 SECONDS (22-32); INR 1.3 INR; PROTHROMBIN TIME 13.5 SECONDS (9.0-12.0)
[2023-05-12 07:54] LABS: ALANINE AMINOTRANSFERASE 17 U/L (12-78); ALBUMIN 2.8 G/DL (3.4-5.0); ALKALINE PHOSPHATASE 188 IU/L (46-116); ANION GAP 3 (8-16); ASPARTATE AMINO TRANSFERASE 22 U/L (10-37); BILIRUBIN,TOTAL 1.1 MG/DL (0.1-1.0); BLOOD UREA NITROGEN 11 MG/DL (7-18); BUN/CREATININE RATIO 12.9 (10.0-20.0); CALCIUM 7.7 MG/DL (8.5-10.1); CHLORIDE 107 MMOL/L (99-107); CREATININE 0.85 MG/DL (0.40-0.90); GLUCOSE 81 MG/DL (70-104); MAGNESIUM 1.8 MG/DL (1.5-2.4); PHOSPHORUS 2.9 MG/DL (2.3-4.5); POTASSIUM 3.8 MMOL/L (3.5-5.1); SODIUM 142 MMOL/L (135-145); TOTAL CARBON DIOXIDE 32.5 MMOL/L (24-32); TOTAL PROTEIN 5.7 G/DL (6.4-8.2); eCRCL 53 ML/MIN; eGFR 67 ML/MIN
[2023-05-12] MEDS: atorvastatin 10mg tablet PO SCH (07:56)
[2023-05-12] MEDS: lamoTRIgine 100mg tablet PO SCH (07:56)
[2023-05-12] MEDS: amiodarone 200mg tablet PO SCH (07:57)
[2023-05-12] MEDS: cyanocobalamin 500mcg tablet PO SCH (07:58)
[2023-05-12] MEDS: levoTHYROXINE 25mcg tablet PO SCH (07:58)
[2023-05-13 06:00] VITALS: BP 118/73; PULSE 68; RESP 17; TEMP 97.6; O2SAT 93
[2023-05-13 06:12] LABS: BASOPHILS # (AUTO) 0.1 X10'3 (0-0.2); BASOPHILS % (AUTO) 0.6 % (0-1); EOSINOPHILS # (AUTO) 0.8 X10'3 (0-0.9); EOSINOPHILS % (AUTO) 8.9 % (0-6); HEMATOCRIT 37.4 % (35.0-45.0); HEMOGLOBIN 12.4 g/dl (12.0-16.0); LYMPHOCYTES # (AUTO) 1.7 X10'3 (1.1-4.8); MEAN CORPUSCULAR HGB CONC 33.1 g/dL (33.0-36.5); MEAN CORPUSCULAR VOLUME 93.8 FL (78-98); MEAN PLATELET VOLUME 6.7 FL (7.4-10.4); MONOCYTES % (AUTO) 11.1 % (2-12); NEUTROPHILS # (AUTO) 5.3 X10'3 (1.8-7.7); NEUTROPHILS % (AUTO) 60.4 % (42-75); PLATELET COUNT 411 X10'3 (140-440); RED BLOOD COUNT 3.99 X10'6 (4.20-5.60); RED CELL DISTRIBUTION WIDTH 20.1 % (11.5-14.5); WHITE BLOOD COUNT 8.8 X10'3 (4.5-11.0)
[2023-05-13 06:17] LABS: INR 1.1 INR; PROTHROMBIN TIME 11.7 SECONDS (9.0-12.0)
[2023-05-13 06:25] LABS: ALANINE AMINOTRANSFERASE 20 U/L (12-78); ALBUMIN 3.2 G/DL (3.4-5.0); ALBUMIN/GLOBULIN RATIO 0.9 (1.1-1.5); ALKALINE PHOSPHATASE 207 IU/L (46-116); ANION GAP 10 (8-16); ASPARTATE AMINO TRANSFERASE 22 U/L (10-37); BLOOD UREA NITROGEN 11 MG/DL (7-18); BUN/CREATININE RATIO 10.2 (10.0-20.0); CALCIUM 8.3 MG/DL (8.5-10.1); CHLORIDE 109 MMOL/L (99-107); CREATININE 1.08 MG/DL (0.40-0.90); GLUCOSE 78 MG/DL (70-104); PHOSPHORUS 3.4 MG/DL (2.3-4.5); POTASSIUM 4.4 MMOL/L (3.5-5.1); SODIUM 144 MMOL/L (135-145); TOTAL CARBON DIOXIDE 24.6 MMOL/L (24-32); TOTAL PROTEIN 6.6 G/DL (6.4-8.2); eCRCL 40 ML/MIN; eGFR 51 ML/MIN
[2023-05-13 06:51] LABS: ANISOCYTOSIS 3+; PLATELET ESTIMATE NORMAL
[2023-05-13 06:52] LABS: POLYCHROMASIA FEW
[2023-05-13 06:56] LABS: BURR CELLS FEW
[2023-05-13 06:58] LABS: TEAR DROP CELLS FEW
[2023-05-13 06:59] LABS: LARGE PLATELETS FEW
[2023-05-13 08:00] VITALS: RESP 15; O2SAT 98
[2023-05-13 08:26] VITALS: PULSE 74; RESP 16; O2SAT 97
[2023-05-13] MEDS ORDERED: FURO20TA4 PO (11:34)
[2023-05-13 13:13] VITALS: RESP 16
== END 2023-05-13 14:10 | disposition home health service (06) | DRG 377 ==
LOC: ER 12:37 → UNDOADMIN 20:44 → ED HOLD 20:44 → EDBEDREQSVC 05-10 00:58 → ED HOLD 05-10 02:00 → ORTHO 4S 05-10 02:00
PROVIDERS: ADMIT Family Medicine; ATTEND Internal Medicine
PROC: 30233N1 Transfusion of Nonautologous Red Blood Cells into Peripheral Vein, Percutaneous Approach (ICD-10-PCS; 2023-05-09)
PROC: 0DJD8ZZ Inspection of Lower Intestinal Tract, Via Natural or Artificial Opening Endoscopic (ICD-10-PCS; principal; 2023-05-10)
DX: K57.31 Diverticulosis of large intestine without perforation or abscess with bleeding (principal); J18.9 Pneumonia, unspecified organism; N17.0 Acute kidney failure with tubular necrosis; I50.32 Chronic diastolic (congestive) heart failure; N13.30 Unspecified hydronephrosis; D62 Acute posthemorrhagic anemia; I13.0 Hypertensive heart and chronic kidney disease with heart failure and stage 1 through stage 4 chronic kidney disease, or unspecified chronic kidney disease; J44.0 Chronic obstructive pulmonary disease with (acute) lower respiratory infection; G43.909 Migraine, unspecified, not intractable, without status migrainosus; E03.9 Hypothyroidism, unspecified; K64.8 Other hemorrhoids; I25.10 Atherosclerotic heart disease of native coronary artery without angina pectoris; K21.9 Gastro-esophageal reflux disease without esophagitis; G89.4 Chronic pain syndrome; E11.22 Type 2 diabetes mellitus with diabetic chronic kidney disease; I27.20 Pulmonary hypertension, unspecified; M25.461 Effusion, right knee; I48.0 Paroxysmal atrial fibrillation; R07.9 Chest pain, unspecified; N18.9 Chronic kidney disease, unspecified; Z96.651 Presence of right artificial knee joint; F31.9 Bipolar disorder, unspecified; K59.00 Constipation, unspecified; S30.1XXA Contusion of abdominal wall, initial encounter; S80.12XA Contusion of left lower leg, initial encounter; K58.9 Irritable bowel syndrome, unspecified; S80.11XA Contusion of right lower leg, initial encounter; S40.021A Contusion of right upper arm, initial encounter; W18.39XA Other fall on same level, initial encounter; Y93.89 Activity, other specified; Y92.89 Other specified places as the place of occurrence of the external cause; Y99.8 Other external cause status; Z83.3 Family history of diabetes mellitus; Z82.49 Family history of ischemic heart disease and other diseases of the circulatory system; Z82.3 Family history of stroke; Z79.899 Other long term (current) drug therapy; Z95.1 Presence of aortocoronary bypass graft; Z95.2 Presence of prosthetic heart valve; Z98.84 Bariatric surgery status; Z87.01 Personal history of pneumonia (recurrent); Z87.440 Personal history of urinary (tract) infections; Z90.49 Acquired absence of other specified parts of digestive tract; Z86.010 Personal history of colon polyps
CPT/HCPCS: 36415; 36430; 43235; 71045; 73560; 80048; 80053; 80061; 80305; 81003; 82272; 82728; 83540; 83550; 83735; 83880; 84100; 84145; 84439; 84443; 84484; 85007; 85008; 85025; 85027; 85610; 85730; 86885; 86900; 86901; 86920; 87081; 88305; 93005; 94760; 97110; 97161; 97530; 97535; 97760; 99152; 99153; 99285; A4620; C9113; G0378; J0696; J2250; J2270; J3010; J7030; J7120; P9016

== ENCOUNTER 2023-06-11 08:38 | Emergency (ER) | payer BC ==
[~2023-06-11] VITALS: Ht 162.6 cm; Wt 65.0 kg
[~2023-06-11 08:38] MED LIST changes: -CEFD300C3 PO; +FURO20TA4 PO; -PRED10TA23 PO; -TIZA-205 PO; +rocuronium 10mg/ml inj IV ONE
[2023-06-11] MEDS ORDERED: LidoCAINE 2% Topical Jelly 11mL syringe TOP ONE ×2 (08:50)
[2023-06-11] MEDS ORDERED: AMI200T PO (09:07)
[2023-06-11] MEDS ORDERED: LEVO75TA7 PO (09:07)
[2023-06-11] MEDS ORDERED: TIZA-205 PO (09:07)
[2023-06-11] MEDS ORDERED: WARF-55 PO (09:10)
[2023-06-11] MEDS ORDERED: phytonadione inj. 10 MG in normal saline 100ml IV soln 100 ML IV ONE (09:10)
[2023-06-11 09:12] LABS: BASOPHILS # (AUTO) 0.1 X10'3 (0-0.2); BASOPHILS % (AUTO) 1.3 % (0-1); EOSINOPHILS # (AUTO) 0.8 X10'3 (0-0.9); EOSINOPHILS % (AUTO) 7.8 % (0-6); HEMATOCRIT 39.7 % (35.0-45.0); LYMPHOCYTES # (AUTO) 1.9 X10'3 (1.1-4.8); LYMPHOCYTES % (AUTO) 18.1 % (21-51); MEAN CORPUSCULAR HEMOGLOBIN 31.7 PG (27.0-31.0); MEAN CORPUSCULAR HGB CONC 32.8 g/dL (33.0-36.5); MEAN CORPUSCULAR VOLUME 96.8 FL (78-98); MEAN PLATELET VOLUME 7.9 FL (7.4-10.4); MONOCYTES # (AUTO) 0.7 X10'3 (0-0.9); MONOCYTES % (AUTO) 6.1 % (2-12); NEUTROPHILS # (AUTO) 7.2 X10'3 (1.8-7.7); NEUTROPHILS % (AUTO) 66.7 % (42-75); PLATELET COUNT 353 X10'3 (140-440); RED CELL DISTRIBUTION WIDTH 19.1 % (11.5-14.5); WHITE BLOOD COUNT 10.8 X10'3 (4.5-11.0)
[2023-06-11 09:19] LABS: ALBUMIN 3.5 G/DL (3.4-5.0); ANION GAP 5 (8-16); BLOOD UREA NITROGEN 19 MG/DL (7-18); BUN/CREATININE RATIO 15.7 (10.0-20.0); CALCIUM 8.8 MG/DL (8.5-10.1); CHLORIDE 107 MMOL/L (99-107); CREATININE 1.21 MG/DL (0.40-0.90); GLUCOSE 149 MG/DL (70-104); POTASSIUM 3.8 MMOL/L (3.5-5.1); SODIUM 137 MMOL/L (135-145); TOTAL CARBON DIOXIDE 24.8 MMOL/L (24-32); eCRCL 39 ML/MIN; eGFR 44 ML/MIN
[2023-06-11 09:22] LABS: APTT 35 SECONDS (22-32); PROTHROMBIN TIME 11.1 SECONDS (9.0-12.0)
[2023-06-11] MEDS ORDERED: iohexol 350MG/ML 100ml bottle IV ONE (09:22)
[2023-06-11 09:28] VITALS: BP 175/96; PULSE 69; RESP 16; O2SAT 100
[2023-06-11] MEDS: succinylcholine 20mg/ml inj IV ONE (09:28)
[2023-06-11] MEDS: etomidate 2mg/ml inj. IV ONE (09:28)
[2023-06-11] MEDS: rocuronium 10mg/ml inj IV ONE ×2 (09:28→09:39)
[2023-06-11 09:43] LABS: ABG BASE EXCESS -3.2 mmol/L (-2.0-2.0); ABG HCO3 23.2 mmol/L (22.0-26.0); ABG OXYGEN SATURATION 98.7 % (94-97); ABG PH (T) 7.312 (7.350-7.450); ABG PO2 (T) 144.2 mmHg (75.0-100.0); ALLEN'S TEST POSITIVE; FCOHb 3.4 % (0.0-3.9); FHHb 1.3 % (0.0-5.0); FMetHb 0.2 % (0.0-1.5); FO2Hb 95.1 % (94-97); MODE VENT - A/C; PEEP 5 cm H2O; RESPIRATORY RATE 16 b/min; TIDAL VOLUME 400 mL; TOTAL HEMOGLOBIN 13.7 G/dl (12.0-16.0)
[2023-06-11] MEDS: niCARDipine-NS 40mg/200ml IVPB 200 ML IV SCH (09:43)
[2023-06-11] MEDS: FENTANYL-0.9 % NACL/PF 100 ML IV PRN (09:44)
[2023-06-11 09:50] VITALS: BP 181/101; PULSE 86; RESP 18; O2SAT 98
[2023-06-11 16:03] VITALS: TEMP 96
== END 2023-06-11 10:00 | disposition short-term general hospital (02) ==
LOC: ER 08:39
DX: I62.9 Nontraumatic intracranial hemorrhage, unspecified (principal); J44.9 Chronic obstructive pulmonary disease, unspecified; I11.0 Hypertensive heart disease with heart failure; G89.29 Other chronic pain; M54.9 Dorsalgia, unspecified; G43.909 Migraine, unspecified, not intractable, without status migrainosus; F31.9 Bipolar disorder, unspecified; Z79.899 Other long term (current) drug therapy
CPT/HCPCS: 31500; 36415; 36600; 70450; 70496; 70498; 71045; 80048; 82803; 82948; 85018; 85025; 85610; 85730; 86885; 86900; 86901; 87070; 93005; 94002; 96365; 99291; J0330; J3490; J7030; Q9967; 96374; 99285; A4615; A4620; C1758